=== PATIENT | male | born 1950 | race Caucasian/White ===

== ENCOUNTER 2019-03-05 18:54 | Emergency (ER) | payer OTHER ==
--- NOTE | 2019-03-05 20:03 | EDPHYS ---
Physician Documentation [facility] Name: Harley Gregory Age: 68 yrs Sex: Male : 1950 Arrival Date: 03/05/2019 Time: 18:54 Bed 25 Private MD: ED Physician Cordell Blanco HPI: 03/05 19:15 This 68 yrs old Male presents to ER via Ambulatory with complaints of Urinary la1 Retention. 19:15 The patient presents with a Hassan catheter problem, is not draining. Onset: The la1 symptoms/episode began/occurred 7 hour(s) ago. Modifying factors: The symptoms are alleviated by nothing, the symptoms are aggravated by nothing. Associated signs and symptoms: The patient has no apparent associated signs or symptoms. Severity of symptoms: At their worst the symptoms were moderate. Pt had a hassan put in yesterday from dr garza and today it is not draining. Historical: - Allergies: 19:00 No Known Allergies; ch - PMHx: 19:00 COPD; enlarged prostate; Hypertension; ch - PSHx: 19:00 None; ch - Immunization history:: Adult Immunizations up to date, Flu vaccine is not up to date. - Social history:: Smoking status: Patient uses tobacco products, smokes two packs cigarettes per day. Patient/guardian denies using alcohol, street drugs. - Ebola Screening: : Patient negative for fever greater than or equal to 101.5 degrees Fahrenheit, and additional compatible Ebola Virus Disease symptoms Patient denies exposure to infectious person Patient denies travel to an Ebola-affected area in the 21 days before illness onset No symptoms or risks identified at this time. ROS: 19:28 Constitutional: Negative for fever, chills, and weight loss, Eyes: Negative for injury, la1 pain, redness, and discharge, ENT: Negative for injury, pain, and discharge, Neck: Negative for injury, pain, and swelling, Cardiovascular: Negative for chest pain, palpitations, and edema, Respiratory: Negative for shortness of breath, cough, wheezing, and pleuritic chest pain, Abdomen/GI: Negative for abdominal pain, nausea, vomiting, diarrhea, and constipation, Back: Negative for injury and pain. 19:28 : Positive for urinary retention. Exam: 19:29 Constitutional: This is a well developed, well nourished patient who is awake, alert, la1 and in no acute distress. Head/Face: Normocephalic, atraumatic. Eyes: Pupils equal round and reactive to light, extra-ocular motions intact. Periorbital areas with no swelling, redness, or edema. ENT: Mucous membranes moist. Neck: Trachea midline, no thyromegaly or masses palpated, and no cervical lymphadenopathy. Supple, full range of motion without nuchal rigidity, or vertebral point tenderness. No Meningismus. Chest/axilla: Normal chest wall appearance and motion. Nontender with no deformity. No lesions are appreciated. 19:29 Back: No spinal tenderness. No costovertebral tenderness. Full range of motion. 19:29 Abdomen/GI: Inspection: distension, that is mild, Bowel sounds: normal, Palpation: abdomen is soft and non-tender, in all quadrants. Vital Signs: 19:00 BP 190 / 110; Pulse 110; Resp 24; Temp 98.8(O); Pulse Ox 93% on R/A; Weight 76.2 kg; ch Height 6 ft. 2 in. (187.96 cm); Pain 9/10; 19:37 BP 147 / 77; Pulse 72; Resp 16; sr5 19:00 Body Mass Index 21.57 (76.20 kg, 187.96 cm) ch 19:00 pt states with his COPD he is normally high 80's to low 90's ch Procedures: 19:31 Urinary catheter irrigated by RN, stated 450cc urine output. la1 MDM: 19:06 Patient medically screened. la1 20:00 Data reviewed: vital signs, nurses notes, and as a result, I will discharge patient. la1 Data interpreted: Pulse oximetry: on room air is 93 %. Interpretation: acceptable. Counseling: I had a detailed discussion with the patient and/or guardian regarding: the historical points, exam findings, and any diagnostic results supporting the discharge/admit diagnosis, the need for outpatient follow up, a urologist, to return to the emergency department if symptoms worsen or persist or if there are any questions or concerns that arise at home. Response to treatment: the patient's symptoms have resolved after treatment, and as a result, I will discharge patient. Special discussion: Based on the history and exam findings, there is no indication for further emergent testing or inpatient evaluation. I discussed with the patient/guardian the need to see the urologist for further evaluation of the symptoms. 03/05 19:06 Order name: Misc. Order: irrigate hassan please; Complete Time: 19:17 la1 Administered Medications: No medications were administered Disposition: 03/06 19:40 Co-signature as Attending Physician, Cordell Blanco MD I agree with the assessment and kdr plan of care. Disposition: 03/05/19 20:02 Discharged to Home. Impression: Complication with urinary catheter-occulsion. - Condition is Stable. - Discharge Instructions: Hassan Catheter Care, Adult, Hassan Catheter Care, Adult, [id number]. - Medication Reconciliation Form, Thank You Letter form. - Follow up: Gauri Garza MD; When: As needed. Follow up: Emergency Department; When: As needed. - Problem is new. - Symptoms are resolved. Signatures: Meghan Carrillo, RN RN Cordell Blanco MD MD [facility] Jaycob Dickerson, HAND ALTERATIONS TAILOR-C HAND ALTERATIONS TAILOR-[facility] Rich Morel RN RN tr5 Corrections: (The following items were deleted from the chart) 03/05 20:08 20:02 03/05/2019 20:02 Discharged to Home. Impression: Complication with urinary tr5 catheter-occulsion. Condition is Stable. Forms are Medication Reconciliation Form, Thank You Letter, Antibiotic Education, Prescription Opioid Use. Follow up: Gauri Garza; When: As needed. Follow up: Emergency Department; When: As needed. Problem is new. Symptoms are resolved. la1
--- NOTE | 2019-03-05 20:03 | ER ---
Nurse's Notes [facility] Name: Harley Gregory Age: 68 yrs Sex: Male : 1950 Arrival Date: 03/05/2019 Time: 18:54 Bed 25 Private MD: Diagnosis: Complication with urinary catheter-occulsion Presentation: 03/05 18:57 Presenting complaint: Patient states: Dr. Garza told me to come in. I have prostate ch issues and he put in a catheter ysterday. It is blocked, no urine output since early this afternoon. the pain is very intense. Dr. Garza said you all would flush it and give me stuff to flush it in case it got blocked again. Dr. Garza called me (Meghan Carrillo) and said the same things. Transition of care: patient was not received from another setting of care. Onset of symptoms was March 05, 2019 at 13:00. Risk Assessment: Do you want to hurt yourself or someone else? Patient reports no desire to harm self or others. Initial Sepsis Screen: Does the patient meet any 2 criteria? No. Patient's initial sepsis screen is negative. Does the patient have a suspected source of infection? No. Patient's initial sepsis screen is negative. Care prior to arrival: None. 18:57 Method Of Arrival: Ambulatory 18:57 Acuity: EARLENE 4 ch Triage Assessment: 19:00 General: Appears distressed, uncomfortable, slender, Behavior is agitated, restless. Pain: Complains of pain in low back area, suprapubic area and pelvis Pain currently is 9 out of 10 on a pain scale. Respiratory: No deficits noted. : Last void at 13:00. Historical: - Allergies: 19:00 No Known Allergies; ch - PMHx: 19:00 COPD; enlarged prostate; Hypertension; ch - PSHx: 19:00 None; - Immunization history:: Adult Immunizations up to date, Flu vaccine is not up to date. - Social history:: Smoking status: Patient uses tobacco products, smokes two packs cigarettes per day. Patient/guardian denies using alcohol, street drugs. - Ebola Screening: : Patient negative for fever greater than or equal to 101.5 degrees Fahrenheit, and additional compatible Ebola Virus Disease symptoms Patient denies exposure to infectious person Patient denies travel to an Ebola-affected area in the 21 days before illness onset No symptoms or risks identified at this time. Screenin:01 Abuse screen: Denies threats or abuse. Denies injuries from another. Nutritional ch screening: No deficits noted. Tuberculosis screening: No symptoms or risk factors identified. Fall Risk None identified. Assessment: 19:00 Reassessment: Assumed care of pt, pt standing upright at counter, appears sr5 uncomfortable, equal unlabored resp, skin warm/dry/nc, hassan cather and drainage bag noted. 19:01 Reassessment:. 19:37 Reassessment: Pt's hassan irrigated with syringe, easily flushed, 450mL tea colored sr5 urine drained. Pt reports relief of s/s. Provider notified. Vital Signs: 19:00 BP 190 / 110; Pulse 110; Resp 24; Temp 98.8(O); Pulse Ox 93% on R/A; Weight 76.2 kg; Height 6 ft. 2 in. (187.96 cm); Pain 9/10; 19:37 BP 147 / 77; Pulse 72; Resp 16; sr5 19:00 Body Mass Index 21.57 (76.20 kg, 187.96 cm) 19:00 pt states with his COPD he is normally high 80's to low 90's ED Course: 18:54 Patient arrived in ED. as 18:59 Triage completed. 19:00 Arm band placed on left wrist. Patient placed in an exam room, on a stretcher. 19:01 Patient has correct armband on for positive identification. Bed in low position. Call light in reach. 19:06 Jaycob Dickerson FNP-C [facility]. la1 19:06 Cordell Blanco MD is Attending Physician. la1 19:16 Royal Pratt, RN is Primary Nurse. sr5 20:01 Gauri Garza MD is Referral Physician. la1 Administered Medications: No medications were administered Outcome: 20:02 Discharge ordered by . la1 20:08 Patient left the ED. tr5 20:09 Discharged to home ambulatory, with family. tr5 20:09 Condition: good 20:09 Discharge instructions given to patient, family, Instructed on discharge instructions, follow up and referral plans. bladder irrigation Demonstrated understanding of instructions, follow-up care, bladder irrigation Signatures: Meghan Carrillo, RN RN ch Manasa Torres Lee, BUILDING ARCHITECTURAL DESIGNER-C BUILDING ARCHITECTURAL DESIGNER-Cla1 Royal Pratt RN RN sr5 Rich Morel RN RN tr5
[2019-03-05 20:14] VITALS: TEMP 98.8; O2SAT 93
[2019-03-05 20:16] VITALS: BP 147/77
== END 2019-03-05 20:08 | disposition home or self-care (01) ==
LOC: ER 18:54
DX: T83.098A Other mechanical complication of other urinary catheter, initial encounter (principal); I10 Essential (primary) hypertension; F17.210 Nicotine dependence, cigarettes, uncomplicated
CPT/HCPCS: 99281

== ENCOUNTER 2019-03-08 11:25 | Day surgery (SDC) | payer OTHER ==
[2019-03-08] MEDS ORDERED: Ringers Lactate 1,000 ML IV ONE (11:59)
[2019-03-08] MEDS ORDERED: GENTAMICIN 80 MG/100 ML BAG 80 MG/100 ML BAG IV ONE (11:59)
[2019-03-08 12:01] LABS: Absolute Lymphocytes (CBC) 0.5 K/uL (0.7-4.9); Basophils % 0.7 % (0-1.3); Hematocrit 24.4 % (39.6-49.0); Lymphocytes % 7.5 % (15.3-44.8); MPV 8.8 fL (7.6-11.3); RBC Red Blood Cell Count 2.56 M/uL (4.33-5.43)
[2019-03-08 12:13] LABS: Protime INR 1.11
--- NOTE | 2019-03-08 12:42 | RAD REPORT ---
EXAM DESCRIPTION: Kayla Patino And David (2 Views)03/08/2019 12:19 pm CLINICAL HISTORY: Preop for bladder surgery COMPARISON: January 2019 FINDINGS: Lungs are hyperaerated The lungs appear clear of acute infiltrate. The heart is normal size IMPRESSION: No acute abnormalities displayed
[2019-03-08 13:04] LABS: Potassium 4.9 mmol/L (3.5-5.1)
[2019-03-08] MEDS ORDERED: MIDAZOLAM HCL 2 MG/2 ML INJ ONE (13:12)
[2019-03-08] MEDS ORDERED: FENTANYL CITR 100 MCG/2 ML ONE ×2 (13:12→14:36)
[2019-03-08] MEDS ORDERED: LIDOCAINE 1% MPF 5 ML VIAL ONE (13:12)
[2019-03-08] MEDS ORDERED: propofoL 200 MG/20 ML VIAL IV ONE (13:12)
[2019-03-08] MEDS ORDERED: NA CHLORIDE 0.9% 1,000 ML ONE (14:23)
[2019-03-08] MEDS: MIDAZOLAM HCL 2 MG/2 ML INJ ONE ×2 (16:00→16:05)
[2019-03-08 18:01] VITALS: BP 138/66; TEMP 97.6; O2SAT 99
[2019-03-08] MEDS ORDERED: TRAMADOL HCL 50 MG TAB ONE (18:21)
[2019-03-08 19:16] LABS: Hematocrit 28.9 % (39.6-49.0)
--- NOTE | 2019-03-12 06:48 | EKG ---
Test Date: 2019-03-08 Test Time: 12:00:49 Completions Manager: ANAHI MEASUREMENT RESULTS: Intervals: Rate: 75 NE: 148 QRSD: 138 QT: 408 QTc: 455 [place]: P: 70 NE: 148 QRS: 88 T: 74 INTERPRETIVE STATEMENTS: Normal sinus rhythm with sinus arrhythmia Right bundle branch block Abnormal ECG No previous ECG available for comparison Electronically Signed On 03-12-19 06:44:01 MEDICAL BILLING SERVICE by Clay Mojica
== END 2019-03-08 19:01 | disposition home or self-care (01) ==
LOC: OR 11:25
PROVIDERS: ATTEND Urology
PROC: 0TBB8ZX Excision of Bladder, Via Natural or Artificial Opening Endoscopic, Diagnostic (ICD-10-PCS; principal; 2019-03-08 13:00)
DX: C67.2 Malignant neoplasm of lateral wall of bladder (principal); F17.200 Nicotine dependence, unspecified, uncomplicated; R31.0 Gross hematuria; R97.20 Elevated prostate specific antigen [PSA]; N45.1 Epididymitis
CPT/HCPCS: 93005 ×2; 85025; 80048; 36415; 86900; 86850; 85610; 86901; 88305; 85730; 85018; 85014; 71046; 52235; J2704; J2250 ×2; J3010; P9016 ×2; J7120; J7030; J1580

== ENCOUNTER 2019-03-10 07:12 | Emergency (ER) | payer OTHER ==
[2019-03-10 07:48] LABS: Absolute Lymphocytes (CBC) 0.3 K/uL (0.7-4.9); Basophils % 0.4 % (0-1.3); Hematocrit 30.1 % (39.6-49.0); MPV 8.4 fL (7.6-11.3); RBC Red Blood Cell Count 3.17 M/uL (4.33-5.43)
[2019-03-10 07:55] LABS: Potassium 4.6 mmol/L (3.5-5.1)
--- NOTE | 2019-03-10 08:07 | ER ---
Nurse's Notes [facility] Name: Harley Gregory Age: 68 yrs Sex: Male : 1950 Arrival Date: 03/10/2019 Time: 07:13 Bed 18 Private MD: Gauri Garza A Diagnosis: Retention of urine, unspecified Presentation: 03/10 07:28 Presenting complaint: Patient states: had a tumor removed from bladder on Mar [address] mat Garza, hassan catheter was removed yesterday morning, initially was able to urinate but now has not urinated since yesterday afternoon. Transition of care: patient was not received from another setting of care. Onset of symptoms was March 09, 2019. Risk Assessment: Do you want to hurt yourself or someone else? Patient reports no desire to harm self or others. Initial Sepsis Screen: Does the patient meet any 2 criteria? No. Patient's initial sepsis screen is negative. Does the patient have a suspected source of infection? No. Patient's initial sepsis screen is negative. Care prior to arrival: None. 07:28 Method Of Arrival: Ambulatory iw 07:28 Acuity: EARLENE 3 iw Historical: - Allergies: 07:31 Codeine; iw 07:24 Codeine; sg - PMHx: 07:32 COPD; enlarged prostate; Hypertension; iw 07:24 COPD; enlarged prostate; Hypertension; sg - PSHx: 07:32 tumor removed from bladder; iw 07:24 None; sg - Immunization history:: Adult Immunizations not up to date. - Social history:: Smoking status: Patient uses tobacco products, smokes one pack cigarettes per day. - Ebola Screening: : Patient negative for fever greater than or equal to 101.5 degrees Fahrenheit, and additional compatible Ebola Virus Disease symptoms Patient denies exposure to infectious person Patient denies travel to an Ebola-affected area in the 21 days before illness onset No symptoms or risks identified at this time. Screenin:25 Abuse screen: Denies threats or abuse. Denies injuries from another. Nutritional sg screening: No deficits noted. Tuberculosis screening: No symptoms or risk factors identified. Never had TB. Fall Risk None identified. Assessment: 07:25 General: Appears in no apparent distress. uncomfortable, well groomed, well developed, sg well nourished, Behavior is calm, cooperative, appropriate for age. Pain: Complains of pain in suprapubic area. Neuro: Level of Consciousness is awake, alert, obeys commands, Oriented to person, place, time, Speech is normal, Facial symmetry appears normal. Cardiovascular: Patient's skin is warm and dry. Chest pain is denied. Respiratory: Airway is patent Respiratory effort is even, unlabored, Respiratory pattern is regular, symmetrical. GI: Abdomen is round non-distended. EENT: No signs and/or symptoms were reported regarding the EENT system. Derm: Skin is pink, warm \T\ dry. Musculoskeletal: No signs and/or symptoms reported regarding the musculoskeletal system. 08:00 : Genitalia appear normal bruising noted to bilateral upper thigh, dark purple. sg Vital Signs: 07:31 BP 158 / 84; Pulse 84; Resp 18 S; Temp 98.3; Pulse Ox 97% on R/A; Weight 76.2 kg; iw Height 6 ft. 1 in. (185.42 cm); Pain 9/10; 08:30 BP 142 / 80; Pulse 88; Resp 17; Temp 98.3; Pulse Ox 98% on R/A; sg 07:31 Body Mass Index 22.16 (76.20 kg, 185.42 cm) iw ED Course: 07:13 Patient arrived in ED. as 07:13 Gauri Garza MD is Private Physician. as 07:18 Prashant Cao, NEO is Primary Nurse. sg 07:18 Catrina Thompson FNP-C [facility]. kb 07:18 Cordell Blanco MD is Attending Physician. kb 07:31 Triage completed. iw 07:31 Arm band placed on. iw 07:33 Patient has correct armband on for positive identification. iw 07:33 Bladder scan completed. 679 mL. iw 07:37 Initial lab(s) drawn, by me, sent to lab. Inserted saline lock: 20 gauge in right ms forearm, using aseptic technique. Blood collected. 08:01 Urine collected: Hassan catheter specimen, clear. Hassan cath inserted, using sterile sg technique, 16 Fr., by me, balloon inflated, to gravity drainage, urine specimen collected. returned clear yellow urine. Patient tolerated well. 08:30 No provider procedures requiring assistance completed. IV discontinued, intact, sg bleeding controlled, No redness/swelling at site. Pressure dressing applied. Administered Medications: No medications were administered Output: 08:30 Urine: 1000ml (Hassan); Total: 1000ml. sg Outcome: 08:06 Discharge ordered by . luis manuel 08:30 Discharged to home ambulatory, with family. sg 08:30 Condition: good 08:30 Discharge instructions given to patient, family, Instructed on discharge instructions, follow up and referral plans. safety practices, hassan cath care Demonstrated understanding of instructions, follow-up care, hassan cath care 08:39 Patient left the ED. sg Signatures: Catrina Thompson, STANDARDS ANALYST-C STANDARDS ANALYST-Prashant Yan, RN RN Manasa Robison Irene, RN Martha Westbrook ms
--- NOTE | 2019-03-10 08:08 | EDPHYS ---
Physician Documentation [facility] Name: Harley Gregory Age: 68 yrs Sex: Male : 1950 Arrival Date: 03/10/2019 Time: 07:13 Bed 18 Private MD: Gauri Garza, A ED Physician Cordell Blanco HPI: 03/10 07:26 This 68 yrs old Male presents to ER via Unassigned with complaints of Urinary kb Retention. 07:26 The patient presents with urinary symptoms, unable to void, Last void was yesterday. kb Onset: The symptoms/episode began/occurred yesterday. Modifying factors: The symptoms are alleviated by nothing, the symptoms are aggravated by nothing. Associated signs and symptoms: The patient has no apparent associated signs or symptoms. Severity of symptoms: At their worst the symptoms were moderate, in the emergency department the symptoms are unchanged. The patient has not experienced similar symptoms in the past. The patient has been recently seen by a physician:. 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 Yesterday he had a chemo treatment through the bladder and the hassan was removed. States he urinated after the removal, but then hasn't been able to urinate since yesterday afternoon. . Historical: - Allergies: 07:31 Codeine; iw 07:24 Codeine; sg - PMHx: 07:32 COPD; enlarged prostate; Hypertension; iw 07:24 COPD; enlarged prostate; Hypertension; sg - PSHx: 07:32 tumor removed from bladder; iw 07:24 None; sg - Immunization history:: Adult Immunizations not up to date. - Social history:: Smoking status: Patient uses tobacco products, smokes one pack cigarettes per day. - Ebola Screening: : Patient negative for fever greater than or equal to 101.5 degrees Fahrenheit, and additional compatible Ebola Virus Disease symptoms Patient denies exposure to infectious person Patient denies travel to an Ebola-affected area in the 21 days before illness onset No symptoms or risks identified at this time. ROS: 07:26 Constitutional: Negative for fever, chills, and weight loss, ENT: Negative for injury, kb pain, and discharge, Neck: Negative for injury, pain, and swelling, Cardiovascular: Negative for chest pain, palpitations, and edema, Respiratory: Negative for shortness of breath, cough, wheezing, and pleuritic chest pain, Abdomen/GI: Negative for abdominal pain, nausea, vomiting, diarrhea, and constipation, Back: Negative for injury and pain, MS/Extremity: Negative for injury and deformity, Skin: Negative for injury, rash, and discoloration, Neuro: Negative for headache, weakness, numbness, tingling, and seizure. 07:26 : Positive for unable to urinate. Exam: 07:26 Constitutional: This is a well developed, well nourished patient who is awake, alert, kb and in no acute distress. Head/Face: Normocephalic, atraumatic. ENT: Nares patent. No nasal discharge, no septal abnormalities noted. Tympanic membranes are normal and external auditory canals are clear. Oropharynx with no redness, swelling, or masses, exudates, or evidence of obstruction, uvula midline. Mucous membranes moist. Neck: Trachea midline, no thyromegaly or masses palpated, and no cervical lymphadenopathy. Supple, full range of motion without nuchal rigidity, or vertebral point tenderness. No Meningismus. Chest/axilla: Normal chest wall appearance and motion. Nontender with no deformity. No lesions are appreciated. Cardiovascular: Regular rate and rhythm with a normal S1 and S2. No gallops, murmurs, or rubs. Normal PMI, no JVD. No pulse deficits. Respiratory: Lungs have equal breath sounds bilaterally, clear to auscultation and percussion. No rales, rhonchi or wheezes noted. No increased work of breathing, no retractions or nasal flaring. Back: No spinal tenderness. No costovertebral tenderness. Full range of motion. Skin: Warm, dry with normal turgor. Normal color with no rashes, no lesions, and no evidence of cellulitis. MS/ Extremity: Pulses equal, no cyanosis. Neurovascular intact. Full, normal range of motion. Neuro: Awake and alert, GCS 15, oriented to person, place, time, and situation. Cranial nerves II-XII grossly intact. Motor strength 5/5 in all extremities. Sensory grossly intact. Cerebellar exam normal. Normal gait. 07:26 Abdomen/GI: Inspection: distension, that is mild, in the suprapubic area, Bowel sounds: normal, in all quadrants, Palpation: soft, in all quadrants, mild abdominal tenderness, in the suprapubic area. Vital Signs: 07:31 BP 158 / 84; Pulse 84; Resp 18 S; Temp 98.3; Pulse Ox 97% on R/A; Weight 76.2 kg; iw Height 6 ft. 1 in. (185.42 cm); Pain 9/10; 08:30 BP 142 / 80; Pulse 88; Resp 17; Temp 98.3; Pulse Ox 98% on R/A; sg 07:31 Body Mass Index 22.16 (76.20 kg, 185.42 cm) iw MDM: 07:18 Patient medically screened. kb 07:26 Data reviewed: vital signs, nurses notes. Data interpreted: Pulse oximetry: on room air kb is 97 %. Interpretation: normal. 08:02 Counseling: I had a detailed discussion with the patient and/or guardian regarding: the kb historical points, exam findings, and any diagnostic results supporting the discharge/admit diagnosis, lab results, the need for outpatient follow up, a urologist, to return to the emergency department if symptoms worsen or persist or if there are any questions or concerns that arise at home. ED course: Pt kidney disease is known. Reports Dr Garza told him to follow up with a kidney specialist. Leg bag will by placed on hassan and pt will follow up with Dr Garza. . 03/10 07:23 Order name: Urine Microscopic Only kb 03/10 07:23 Order name: CBC with Diff kb 03/10 07:23 Order name: Urine Dipstick-Ancillary (obtain specimen); Complete Time: 08:00 kb 03/10 07:23 Order name: Bladder Scanner; Complete Time: 07:32 kb 03/10 07:23 Order name: Basic Metabolic Panel; Complete Time: 08:00 kb 03/10 08:04 Order name: Urine Dipstick--Ancillary (enter results); Complete Time: 08:32 iw 03/10 07:23 Order name: IV Start; Complete Time: 07:37 kb 03/10 07:23 Order name: Hassan; Complete Time: 08:00 kb 03/10 08:07 Order name: Hassan Leg Bag; Complete Time: 08:10 kb Administered Medications: No medications were administered Disposition: 03/11 07:29 Co-signature as Attending Physician, Cordell Blanco MD I agree with the assessment and kdr plan of care. Disposition: 03/10/19 08:06 Discharged to Home. Impression: Retention of urine, unspecified. - Condition is Stable. - Discharge Instructions: Acute Urinary Retention, Male, [id number], Hassan Catheter Care, Adult, [id number]. - Medication Reconciliation Form, Thank You Letter, Antibiotic Education, Prescription Opioid Use form. - Follow up: Emergency Department; When: As needed; Reason: Worsening of condition. Follow up: Private Physician; When: 2 - 3 days; Reason: Recheck today's complaints, Continuance of care, Re-evaluation by your physician. Signatures: Dispatcher [employer] EDMS Catrina Thompson, SENIOR SYSTEMS DEVELOPER-C SENIOR SYSTEMS DEVELOPER-Ckb Prashant Cao RN RN sg Cordell Blanco MD MD kdr Vania Pimentel RN RN iw Corrections: (The following items were deleted from the chart) 03/10 08:39 08:06 03/10/2019 08:06 Discharged to Home. Impression: Retention of urine, unspecified. sg Condition is Stable. Discharge Instructions: Acute Urinary Retention, Male, [id number], Hassan Catheter Care, Adult, [id number]. Forms are Medication Reconciliation Form, Thank You Letter, Antibiotic Education, Prescription Opioid Use. Follow up: Emergency Department; When: As needed; Reason: Worsening of condition. Follow up: Private Physician; When: 2 - 3 days; Reason: Recheck today's complaints, Continuance of care, Re-evaluation by your physician. kb
[2019-03-10 08:28] LABS: Urine Blood 3+ (NEG); Urine Glucose NEGATIVE (NEG); Urine Protein 1+ (NEG)
[2019-03-10 08:44] LABS: Urine Bacteria 20-50 /HPF (NONE SEEN); Urine Culture Reflex Order REFLEXED; Urine RBC >50 /HPF (NONE SEEN)
[2019-03-10 08:49] VITALS: BP 158/84; TEMP 98.3; O2SAT 97
[2019-03-10 09:03] LABS: Blood Morphology Comment NOT SEEN (NOT SEEN); Platelet Estimate ADEQ
== END 2019-03-10 08:39 | disposition home or self-care (01) ==
LOC: ER 07:12
DX: R33.9 Retention of urine, unspecified (principal); I10 Essential (primary) hypertension; J44.9 Chronic obstructive pulmonary disease, unspecified; F17.210 Nicotine dependence, cigarettes, uncomplicated; Z88.5 Allergy status to narcotic agent
CPT/HCPCS: 36415; 51702; 80048; 81003; 81015; 85025; 87086; 87088; 93005; 99284

== ENCOUNTER 2020-03-17 08:43 | Day surgery (SDC) | payer OTHER ==
--- OUTSIDE RECORDS SUMMARY | 2020-03-17 08:46 | XMS REPORT | Continuity of Care Document ---
:1950 Author Organization [facility] t Address [address] [place] [address] Care Team Providers Name Role Phone Zak GUILLORY Attending Clinician Problems This patient has no known problems. Allergies, Adverse Reactions, Alerts Allergy Allergy Status Severity Reaction(s) Onset Inactive Treating Comm ents Source Name Type Date Date Clinician Predniso Adverse Active swelling, [facility] Medications Ordered Filled Start Stop Current Ordering Indication Dosage Frequency Signature Comments Components Source Medication Medication Date Date Medication? Clinician (SIG) Name Name Tamsulosin Tamsulosin 2020- No Sanam [address] [facility] HCl HCl 10-21 [facility] Cefdinir Cefdinir 2019- No [facility] 10-21 [place] [facility] Flomax Flomax Yes [facility] [place] [facility] Albuterol Albuterol Yes Sanam [address] [facility] Sulfate Sulfate [facility] Ferrous Ferrous Yes Sanam [address] [facility] Sulfate Sulfate [place] [facility] BusPIRone BusPIRone Yes Sanam [address] [facility] HCl HCl [place] [facility] Ibuprofen Ibuprofen Yes Sanam [address] [facility] Toan with food [facility] - or milk as [facility] Mucinex DM Mucinex DM Yes Sanam 1 -[address] [place] tablet as [facility] Procedures This patient has no known procedures. Encounters Start End Encounter Admission Attending Care Care Encounter Source Date/Time Date/Time Type Type Clinicians Facility Department ID 2020-03-15 2020-03-15 Outpatient [facility] [id number] [facility] 2020-03-13 2020-03-13 Out[facility] [id number] [facility] 2020-03-12 2020-03-12 Out[facility] [id number] [facility] 2020-03-07 2020-03-07 Out[facility] [id number] [facility] 2020-02-11 2020-02-11 Out[facility] [id number] [facility] 2019-12-09 2019-12-09 Out[facility] [id number] [facility] 2019-12-07 2019-12-07 Out[facility] [id number] [facility] 2019-12-01 2019-12-01 Out[facility] [id number] 2019-12-01 2019-12-01 [facility] [id number] [facility] 2019-11-26 2019-11-26 [facility] [id number] [facility] 2019-11-18 2019-11-18 [facility] [id number] [facility] 11:00:00 11:00:00 [facility] 2019-11-11 2019-11-11 [facility] [id number] [facility] 13:08:00 13:08:00 [facility] 2019-10-27 2019-10-27 [facility] [id number] [address] 10:30:00 10:30:00 t [facility] Clin[facility] 2019-10-23 2019-10-23 [facility] [id number] [facility] 14:29:00 14:29:00 t [facility] Outpat[facility] Clinics 2019-10-22 2019-10-22 [facility] [id number] 15:15:00 15:15:00 t [facility] Out[facility] ent Clinics 2019-09-16 2019-09-16 Office [facility] [id number] 14:24:14 16:28:18 Visit , [facility] [id number] [facility] [id number] Results This patient has no known results.
--- OUTSIDE RECORDS SUMMARY | 2020-03-17 08:46 | XMS REPORT ---
:1950 Author Organization [facility] Address [address] [facility] [address] [place] [address] Care Team Providers Name Role Phone Toan Unavailable [phone] PROBLEMS Type Condition ICD9-CM [id number] Onset Condition SNOMED Code Notes Code Code Dates Status Problem Diaz catheter Z97.[address] Problem Abnormal renal R94.4 Active 751790281 function test Problem At risk for Z91.81 Active 417597133 falls Problem Chronic J44.9 Active 34689156 obstructive pulmonary disease, unspecified COPD type Problem Tobacco use Z72.0 Active 940815473 Problem Generalized R53.1 Active 80894690 weakness Problem Skin lesions L98.9 Active 41098809 Multiple; including moles at face/back. Problem Allergic T78.40XA Active 881418934 reaction, initial encounter Problem Peripheral R60.9 Active 420874389 edema Problem History of Z85.51 Active 166232530 bladder cancer Problem Itching L29.9 Active 426407465 Problem Urinary R33.9 Active 588974218 retention Problem Hypoxia R09.02 Active 596716027 Problem Bladder cancer C67.9 Active 177910609 ALLERGIES Allergen (clinical Drug/Non Drug Reaction Allergy Type Onset Date S tatus drug ingredient) Allergy documented on EMR PrednisoLONE swelling, Drug Allergy Active itching, breakout ENCOUNTERS from 1950 to 2020-02-11 Encounter Location Date Provider Diagnosis [facility] [address] Feb, Sanam Joya [facility] [address] IMMUNIZATIONS Vaccine Route Administration Date Status Rocephin (Ceftriaxone) IM Intramuscular Dec 07, 2019 Administ ered Solumedrol 125mg/2ml IM Intramuscular Oct 21, 2019 Administer ed SOCIAL HISTORY Tobacco Use: Social History Observation Description Date Details (start date - stop date) Current Smoker Sex Assigned At : Social History Observation Description Sex Assigned At Unknown Tobacco Use/Smoking Question Answer Notes Are you a current smoker How often do you smoke cigarettes? every day REASON FOR REFERRAL No Information VITAL SIGNS No information MEDICATIONS Medication SIG (Take, Route, Notes Start Date End Date Status Frequency, Duration) Cefdinir 300 MG as directed Orally BID Feb,Feb Active for 7 days BusPIRone HCl 10 MG 1 tablet Orally three Active times a day Mucinex DM 30-600 MG 1 -2 tablet as needed Active Orally every 12 hrs Ferrous Sulfate 324 MG 1 tablet Orally Once a Active day Flomax 0.4 MG 1 capsule Orally Once a Active day for 30 day(s) Tamsulosin HCl 0.4 MG 1 capsule Orally Once a Active day for 90 days Cefdinir 300 MG as directed Orally BID Active for 7 days Ibuprofen 600 MG 1 tablet with food or Active milk as needed Orally Three times a day Albuterol Sulfate (2.5 3 ml as needed Active MG/3ML) 0.083% Inhalation 2 times daily as directed PROCEDURES No Information RESULTS No Results REASON FOR VISIT No Information MEDICAL (GENERAL) HISTORY Type Description Date Medical History Allergic rhinitis Medical History Cancer Medical History Memory problem Medical History Swelling Medical History Anxiety Medical History COPD (chronic obstructive pulmonary dise ase) Medical History Kidney disease Medical History Sinus problem Medical History prostate problems Surgical History bladder cancer 2019 [place] No Information Health Concerns No Information MEDICAL EQUIPMENT No Information MENTAL STATUS No Information FUNCTIONAL STATUS No Information ASSESSMENTS No Information PLAN OF TREATMENT Medication Medication Name Sig Start Date Stop Date Cefdinir 300 MG as directed Orally BID for 7 days Feb, Feb, Insurance Providers Payer Name Payer Payer Insured Name Patient Coverage Covera ge End Address Phone Relationship to Start Date Wes e Insured [employer] [address] [address] [phone] Andrea Gregory [facility] [address] [phone]
--- OUTSIDE RECORDS SUMMARY | 2020-03-17 08:46 | XMS REPORT ---
:[address] [facility] Address [address] [facility] [place], [place] [place] [address] Care Team Providers Name Role Phone Eddie Unavailable [phone] PROBLEMS Type Condition ICD9-CM [id number] Onset Condition SNOMED Code Notes Code Code Dates Status Problem Diaz catheter Z97.[address] Problem Abnormal renal R94.4 Active 290944190 function test Problem At risk for Z91.81 Active 847299706 falls Problem Chronic J44.9 Active 83816293 obstructive pulmonary disease, unspecified COPD type Problem Tobacco use Z72.0 Active 785112920 Problem Generalized R53.1 Active 26683549 weakness Problem Skin lesions L98.9 Active 10953381 Multiple; including moles at face/back. Problem Allergic T78.40XA Active 216620947 reaction, initial encounter Problem Peripheral R60.9 Active 177072070 edema Problem History of Z85.51 Active 600852516 bladder cancer Problem Itching L29.9 Active 017027204 Problem Urinary R33.9 Active 092559434 retention Problem Hypoxia R09.02 Active 189525829 Problem Bladder cancer C67.9 Active 893340154 ALLERGIES Allergen (clinical Drug/Non Drug Reaction Allergy Type Onset Date S tatus drug ingredient) Allergy documented on EMR PrednisoLONE swelling, Drug Allergy Active itching, breakout ENCOUNTERS from 1950 to 2020-03-09 Encounter Location Date Provider Diagnosis [facility] [address] [facility] [address] Feb, Colin Morgan [facility] [address] IMMUNIZATIONS Vaccine Route Administration Date Status Rocephin [...] Start Date End Date Status Frequency, Duration) Tamsulosin HCl 0.4 MG 1 capsule Orally Once a Active day for 90 days Albuterol Sulfate (2.5 3 ml as needed Inhalation Active MG/3ML) 0.083% 2 times daily as directed Mucinex DM 30-600 MG 1 -2 tablet as needed Active Orally every 12 hrs BusPIRone HCl 10 MG 1 tablet Orally three Active times a day Ibuprofen 600 MG 1 tablet with food or milk Active as needed Orally Three times a day Cefdinir 300 MG as directed Orally BID for Active 7 days Ferrous Sulfate 324 MG 1 tablet Orally Once a day Active Flomax 0.4 MG 1 capsule Orally Once a Active day for 30 day(s) PROCEDURES No Information RESULTS No Results REASON FOR VISIT prev med did not work MEDICAL (GENERAL) HISTORY Type Description Date Medical [...] Information ASSESSMENTS No Information PLAN OF TREATMENT Next Appt Details Provider Name:Colin Morgan, 03:30:00 PM, [address] [place] [address], [phone], Provider Name:Eduard Syed, 2020-03-30 01:30:00 PM, [facility] CATHERINE Champion, [address], [address], Provider Name:Sanam Joya, 11:00:00 AM, [address] [place] [address], [phone], Insurance Providers Payer Name Payer Payer Insured Name Patient Coverage Covera ge End Address Phone Relationship to Start Date Wes e Insured [employer] [address] [address] [phone] Andrea Gregory [facility] [address] [phone]
--- OUTSIDE RECORDS SUMMARY | 2020-03-17 08:46 | XMS REPORT | Summary of Care ---
:1950 Author Organization [facility] Address [address] [place] [address] Care Team Providers Name Role Phone [place] Primary Care Provider Reason for Referral Radiology Services (ADRIAN) Status Reason Specialty Diagnoses / Procedures Referred By Helder camacho To Contact Contact Closed Diagnostic Diagnoses Elevated serum creatinine Zak, Radiology Procedures US RETROPERITONEAL LIMITED MD Paulie [address] [place] [address] Reason for Visit Reason Comments New Patient kidney (Routine) Status Reason Specialty Diagnoses / Referred By Referred To Procedures Contact Contact New Request Nephrology Diagnoses Kidney failure Creatinine elevation [place], Procedures CONSULT NEPHROLOGY C MD Paulie [address] [place] [phone] Phone: Fax: Encounter Details Date Type Department Care Team Description 09/16/2019 Office Visit [facility] Zak, Elevated serum creatinine (Primary Dx); Nephrology- MD Paulie Hyperparathyroidism due to renal insuffi ciency; [address] Anemia, unspecified type [place] [address] [address] [phone] [place], [place] [phone] (Fax) [phone] Allergies No Known Allergiesdocumented as of this encounter (statuses as of 12/22/2019) Medications Medication Sig Dispensed Refills Start Date End Date Status aspirin 81 mg chewable Take 81 mg by 0 Active tablet mouth daily. diphenhydrAMINE 25 mg Take 25 mg by 0 Active tablet mouth 2 (two) times daily. guaifenesin/DM/pseudoephe Take 10 mL by 0 Active drine (TUSSIN CF ORAL) mouth 2 (two) times daily. documented as of this encounter (statuses as of 12/22/2019) Active Problems Problem Noted Date Elevated serum creatinine 09/16/2019 Hyperparathyroidism due to renal insufficiency 020 Anemia, unspecified type 09/16/2019 Hyperkalemia 09/16/2019 documented as of this encounter (statuses as of 12/22/2019) Social History Tobacco Use Types Packs/Day Years Used Date Current Every Day Smoker 1 40 Smokeless Tobacco: Never Used Sex Assigned at Date Recorded Not on file COVID-19 Exposure Response Date Recorded In the last month, have you been in contact with No / Unsure 09/24/2019 10:22 AM CDT someone who was confirmed or suspected to have Coronavirus / COVID-19? documented as of this encounter Last Filed Vital Signs Vital Sign Reading Time Taken Comments Blood Pressure 138/77 09/16/2019 3:07 PM CDT Pulse 75 09/16/2019 3:07 PM CDT Temperature 36.6 C (97.9 F) 09/16/2019 3:02 PM CDT Respiratory Rate 16 09/16/2019 3:02 PM CDT Oxygen Saturation - - Inhaled Oxygen Concentration - - Weight 68.9 kg (151 lb 14.4 oz) 09/16/2019 3:02 PM CDT Height 185.4 cm (6' 1") 09/16/2019 3:02 PM CDT Body Mass Index 20.04 09/16/2019 3:02 PM CDT documented in this encounter Progress Notes Paulie Crespo MD - 09/16/2019 3:30 PM CDT DATE OF SERVICE: 09/16/2019 CHIEF COMPLAINT: ELEVATED SERUM CREATININE, HISTORY OF PRESENT ILLNESS: Harley Gregory is a 69 year old male who has a significant past medical history of COPD and Bladder tumors. Patient states that a urologist removed slow growing bladder tumors from the bladder around the first of the year. Repeat cystoscopy three months later revealed no new tumor growth. Patient was noted to have an elevated serum creatinine and was referred for evaluation. Patient denies nausea, vomiting, decreased appetite, reversal of sleep patterns, myoclonus, decreased mental concentration, pruritus, and/or other uremic symptomatology. Patient denies dysuria, hematuria, foul-smelling urine, hesitancy, frequency, and/or nocturia multiple times per night. PAST MEDICAL HISTORY: COPD BLADDER TUMORS PAST SURGICAL HISTORY: Past Surgical History: Procedure Laterality Date CYSTOSCOPY TONSILLECTOMY FAMILY HISTORY: Family History Problem Relation Age of Onset Diabetes Mother CHF (congestive heart failure) Mother Pulmonary Father TB (tuberculosis) Father SOCIAL HISTORY: Social History Socioeconomic History Marital status: Spouse name: Not on file Number of children: Not on file Years of education: Not on file Highest education level: Not on file Occupational History Not on file Social Needs Financial resource strain: Not on file Food insecurity Worry: Not on file Inability: Not on file Transportation needs Medical: Not on file Non-medical: Not on file Tobacco Use Smoking status: Current Every Day Smoker Packs/day: 1.00 Years: 40.00 Pack years: 40.00 Smokeless tobacco: Never Used Substance and Sexual Activity Alcohol use: Not on file Drug use: Not on file Sexual activity: Not on file Lifestyle Physical activity Days per week: Not on file Minutes per session: Not on file Stress: Not on file Relationships Social connections Talks on phone: Not on file Gets together: Not on file Attends roman catholic service: Not on file Active member of club or organization: Not on file Attends meetings of clubs or organizations: Not on file Relationship status: Not on file Intimate partner violence Fear of current or ex partner: Not on file Emotionally abused: Not on file Physically abused: Not on file Forced sexual activity: Not on file Other Topics Concern Not on file Social History Narrative Not on file ALLERGIES: No Known Allergies MEDICATIONS: Current Outpatient Medications on File Prior to Visit Medication Sig Dispense Refill aspirin 81 mg chewable tablet Take 81 mg by mouth daily. diphenhydrAMINE 25 mg tablet Take 25 mg by mouth 2 (two) times daily. guaifenesin/DM/pseudoephedrine (TUSSIN CF ORAL) Take 10 mL by mouth 2 (two) times daily. No current facility-administered medications on file prior to visit. REVIEW OF SYSTEMS: CONSTITUTIONAL: Patient feels relatively weak and tired since before [place] 1. with weakness, denies fevers, chills, night sweats, weight loss of 50 lbs in one year. SKIN: Patient denies pruritus or skin changes HEENT: Patient denies headaches, blurred vision, double vision, eye pain, discharges, photophobia, uses readers. Patient denied hearing loss, earache, tinnitus, vertigo. Patient attests to rhinorrhea, nasal stuffiness that is seasonal, denies epistaxis. Patient denied bleeding gums, sore tongue, sore t hroat, and/or hoarseness. NECK: Patient denies neck pain, stiffness, attests to a left-sided lump noticed a couple of years. PULMONARY: Patient attest to shortness of breath on exertion, attests to cough with clear phlegm production, denies hemoptysis, wheezing, denies orthopnea, attests to paroxysmal nocturnal dyspnea with cough. CARDIOVASCULAR: Patient denies chest pain and/or palpitations GASTROINTESTINAL: Patient attests to decreased appetite, nausea in AM, denies vomiting, denies abdominal pain, constipation, diarrhea, hematemesis, melena, and/or hematochezia. No colonoscopy. GENITOURINARY: Patient denies flank pain, dysuria, foul-smelling urine, hematuria, foamy urine, hesitancy, decreased urinary stream, polyuria, and/or nocturia ("lots of times") MUSCULOSKELETAL: Patient denies joint pain, stiffness, swelling, limitation of motion, tenderness, and/or redness. PERIPHERAL VASCULAR: Patient denies pain/discomfort upon walking, coldness, numbness, redness, swelling, and/or tenderness. HEMATOLOGIC: Patient denies easy bruising, gingival bleeding, excessive bleeding after procedures. NEUROLOGICAL: Patient denies syncope, attests to dizziness/lightheadedness intermittently with changing positions, denies vertigo, numbness and/or paresthesias, tremors and/or other involuntary movements. ENDOCRINOLOGIC: Patient denies skin changes, polyuria, polydipsia, polyphagia, heat or cold intolerance, and/or excessive sweating. PSYCHIATRIC: Patient attests nervousness/anxiety, excessive fatigue, changes in sleep habits (awake every 45 minutes), good mood, memory diminished PHYSICAL EXAMINATION: Vitals: 09/16/19 1502 09/16/19 1505 09/16/19 1506 09/16/19 1507 BP: (!) 140/81 (!) 140/80 (!) 149/80 138/77 BP Location: Right arm Right arm Left arm Left arm Patient Position: Sitting Standing Sitting Standing BP CUFF SIZE: Adult Medium Adult Medium Adult Medium Adult Medium Pulse: 70 74 69 75 Resp: 16 Temp: 36.6 C (97.9 F) TempSrc: Oral Weight: 151 lb 14.4 oz (68.9 kg) Height: 6' 1" (1.854 m) GENERAL: Patient looks well-developed, well-nourished, in no apparent distress. Patient is awake, alert, oriented, and cooperative. SKIN: No significant skin lesions, and/or rashes HEENT: Normocephalic, atraumatic, PERRLA, EOMI, pink conjunctivae, moist oral mucosa without oropharyngeal lesion. No naso-oropharyngeal lesions. NECK: Supple, full range of motion, without lymphadenopathy, thyromegaly, masses, and/or bruits CHEST: Clear to auscultation and percussion. HEART: Normal S1, S2, without murmurs, rubs, and/or gallops. ABDOMEN: Normoactive bowel sounds in all quadrants, without tenderness, hepatosplenomegaly, masses, and/or bruits EXTREMITIES: No clubbing, cyanosis, and/or edema. No joint swelling and/or tenderness. Pulses were 2+/4+ in all areas without femoral bruits. NEURO: CN II-XII grossly intact, non-focal exam without asterixis LABORATORY DATA: No visits with results within 1 Day(s) from this visit. Latest known visit with results is: Manufacturing Specialist Visit on 09/08/2019 Component Date Value NA 09/08/2019 138 K 09/08/2019 4.9 CL 09/08/2019 103 CO2 TOTAL 09/08/2019 26 AGAP 09/08/2019 9 BUN 09/08/2019 43* GLUCOSE 09/08/2019 137* CREATININE 09/08/2019 2.82* CALCIUM 09/08/2019 8.8 eGFR Calculation (Non-Af* 09/08/2019 22.3 eGFR Calculation (Mary* 09/08/2019 27.1 MAGNESIUM 09/08/2019 2.1 CREAT U 09/08/2019 52.2 MICROALB U 09/08/2019 54* MICROAL/CR 09/08/2019 103* T. PROT U 09/08/2019 30 CREAT U 09/08/2019 51.0 Protein/Creatinine Ratio* 09/08/2019 0.6 PHOSPHORUS 09/08/2019 4.6 WBC 09/08/2019 4.19* RBC 09/08/2019 3.07* HGB 09/08/2019 10.0* HCT 09/08/2019 30.9* MCH 09/08/2019 32.6 MCV 09/08/2019 100.7* MCHC 09/08/2019 32.4 PLT 09/08/2019 130* MPV 09/08/2019 9.6* RDW-CV 09/08/2019 13.3 RDW-SD 09/08/2019 48.9 NRBC x10^3 09/08/2019 <0.01 NRBC/100 WBC 09/08/2019 0.0 CALCIUM 09/08/2019 8.8 PTH-INTACT 09/08/2019 209.4* PTH-CA Interpretation 09/08/2019 URIC ACID 09/08/2019 3.8 APPEARANCE 09/08/2019 Clear COLOR 09/08/2019 Yellow PH 09/08/2019 6.0 SP GRAVITY 09/08/2019 1.010 GLU U QUAL 09/08/2019 Normal BLOOD 09/08/2019 3+* KETONES 09/08/2019 Negative PROTEIN 09/08/2019 Negative UROBILIN 09/08/2019 Normal BILIRUBIN 09/08/2019 Negative NITRITE 09/08/2019 Negative LEUK ALEXANDRU 09/08/2019 Negative RBC/HPF 09/08/2019 91* WBC/HPF 09/08/2019 2 BACTERIA 09/08/2019 Few* SQ EPITH 09/08/2019 <1 Repeat Laboratory Data in follow-up of elevated serum creatinine and hyperkalemia. 09/22/2019 08:56 NA 140 K 5.1 (H) CL 102 CO2 TOTAL 29 AGAP 9 BUN 50 (H) GLUCOSE 87 CREATININE 3.00 (H) eGFR CALCULATION (non ) 20.8 eGFR CALCULATION () 25.2 CALCIUM 8.9 RENAL ULTRASOUND EXAM: US RETROPERITONEAL LIMITED HISTORY: 69 years-old Male with elevated serum creatinine, right upper quadrant fullness (patient very thin and could be normal kidney) . TECHNIQUE: Ultrasound of kidneys was performed with grayscale and selected color Doppler imaging. Acetylene Gas Compressor images were obtained for the record. COMPARISON: None FINDINGS: The kidneys are normal in size, contour, and echotexture. The right kidney measures 11.2 x 4.2 x 4.8 cm (119 mL). The left kidney measures 10.2 x 5.0 x 4.6 cm (125 mL). No hydronephrosis or stone. BLADDER: Not evaluated in this limited study. IMPRESSION Unremarkable renal ultrasound. Preliminary Report Dictated by Resident: Dennise Blankenship I, Jessica Lopez MD., have reviewed this study and agree with the above Report. ASSESSMENT/PLAN: ELEVATED SERUM CREATININE Comment: Patient's serum creatinine was 2.82-3.0 mg/dL mg/dL, at the time of this clinic visit, which extrapolates to an estimated GFR by the MDRD equation of 20 mL/min normalized to a body surface area. Underlying kidney disease is not clear at this time except for hypertension. Patient does have hematuria, however, patient has only mild proteinuria inconsistent with a glomerulonephritis except forIgA Nephropathy or an entity like thin basement membrane disease. His hematuria could be secondary to previous bladder issues as mentioned in PMHx. Renal ultrasound is unremarkable at this time. Plan: REPEAT URINALYSIS AND ASSESS HEMATURIA.. CONSIDERATION FOR RENAL BIOPSY IF ETIOLOGY OF RENAL DYSFUNCTION IS UNCLEAR.. HEMATURIA Comment: See above discussion Plan. See above. SECONDARY HYPERPARATHYROIDISM Comment: This likely represents chronic elevation in serum creatinine and phosphorus abnormalities Plan: NO INTERVENTION IS NECESSARY AT THIS TIME ANEMIA IN CHRONIC KIDNEY DISEASE Comment: This is secondary to elevated serum creatinine and reduction in erythropoietin Plan: NO INTERVENTION IS NECESSARY AT THIS TIME FOLLOW-UP: 2-3 MONTHS Paulie Crespo MD vitreo retinal surgeon Director, Division of Nephrology & Hypertension 4.[address] Paulie [address] [place] O [phone] F [phone] M [phone] P [phone] E [email or web address] documented in this encounter Plan of Treatment Health Maintenance Due Date Last Done Comments HEPATITIS C (HCV) SCREEN 1950 Depression Screening 1961 DTaP,Tdap,and Td Vaccines (1 - Tdap) 1968 COLON CANCER SCREENING ANNUAL FIT/FOBT 1999 COLON CANCER SCREENING FIT DNA EVERY 3 YEARS 1999 COLON CANCER SCREENING SIGMOIDOSCOPY EVERY 5 YEARS 1999 COLONOSCOPY 1999 Colorectal Cancer Screening 1999 Zoster Recombinant Vaccine (SHINGRIX) (1 of 2) 1999 LUNG CANCER SCREEN: Recommended for age 55-80 with 30 + 03/29/19 05 pack year history Medicare Wellness Visit 2014 PNEUMOCOCCAL VACCINES 65+ (1 of 1 - PPSV23) 2014 INFLUENZA VACCINE (#1) 2019 documented as of this encounter Procedures Procedure Name Priority Date/Time Associated Diagnosis Comme nts VITAMIN D, 25-OH Routine 09/16/2019 4:42 Hyperparathyroidism due to Results for this PM CDT renal insufficiency procedur e are in the results section. COMP. METABOLIC Routine 09/16/2019 4:42 Elevated serum creatinine Results for this PANEL (86210) PM CDT Hyperparathyroidism due to procedure are in renal insufficiency the resu lts section. TOTAL IRON Routine 09/16/2019 4:42 Anemia, unspecified type Results for this BINDING CAPACITY PM CDT procedure a re in the results section. IRON Routine 09/16/2019 4:42 Anemia, unspecified type Results for this PM CDT procedure are i n the results section. FERRITIN SERUM Routine 09/16/2019 4:42 Anemia, unspecified ty pe Results for this PM CDT procedure are i n the results section. documented in this encounter Results US RETROPERITONEAL LIMITED (09/24/2019 10:40 AM CDT) Specimen Impressions Performed At PACS/VR/DOSE Unremarkable renal ultrasound. Preliminary Report Dictated by Resident: Dennise Blankenship I, Jessica Lopez MD., have reviewed this study and agree with the above report. Narrative Performed At EXAM: US RETROPERITONEAL LIMITED PACS/VR/DOSE HISTORY: 69 years-old Male with elevated serum creatinine, right upper quadrant fullness (patient very thin and could be normal kidney) . TECHNIQUE: Ultrasound of kidneys was performed with gr ayscale and selected color Doppler imaging. Acetylene Gas Compressor images were obta ined for the record. COMPARISON: None FINDINGS: The kidneys are normal in size, contour, and echotextu re. The right kidney measures 11.2 x 4.2 x 4.8 cm (119 mL). The left kidney measures 10.2 x 5.0 x 4.6 cm (125 mL). No hydronephrosis or stone. BLADDER: Not evaluated in this limited s tudy. Procedure Note Ut, Radiant Results Inft User - 2019 11:06 AM CDT EXAM: US RETROPERITONEAL LIMITED HISTORY: 69 years-old Male with elevated serum creatinine, right upper quadrant fullness (patient very thin and could be normal kidney) . TECHNIQUE: Ultrasound of kidneys was per formed with grayscale and selected color Doppler imaging. Acetylene Gas Compressor im ages were obtained for the record. COMPARISON: None FINDINGS: The kidneys are normal in size, contour, and echotexture. The right kidney measures 11.2 x 4.2 x 4.8 cm (119 mL). T he left kidney measures 10.2 x 5.0 x 4.6 cm (125 mL). No hydronephrosis or stone. BLADDER: Not evaluated in this limited s tudy. IMPRESSION Unremarkable renal ultrasound. Preliminary Report Dictated by Resident: Dennise Blankenship I, Jessica Lopez MD., have reviewed this study and agree with the above report. Performing Organization Address City/[facility] Phone Number PACS/VR/DOSE FERRITIN SERUM (09/16/2019 4:42 PM CDT) Pathologist Sig [facility] FERRITIN 152.0 18.0 - 464.0 ng/mL [facility] ES Specimen Blood Narrative Performed At Biotin has been reported to cause a negative bias, int erpret [facility] results relative to patient's use of biotin. Performing Organization Address City/[facility] Cent[facility] Phone Number [facility] CLIA: [id number] [place] [address] [phone] 301 [facility] TOTAL IRON BINDING CAPACITY (09/16/2019 4:42 PM CDT) Pathologist Sig [facility] TIBC 308 250 - 410 ug/dL [facility] % FE SAT 22 20 - 50 % [facility] Specimen Blood Performing Organization Address [facility] [place]/[facility] Phone Number [facility] CLIA: [id number] [place], [place] [address] 301 [facility] IRON (09/16/2019 4:42 PM CDT) Pathologist Sig nature IRON 67 50 - 160 ug/dL [facility] Specimen Blood Performing Organization Address City/State/Zipcode Phone Number [facility] CLIA: [id number] [place] [address] [place] [address] COMP. METABOLIC PANEL (53289) (09/16/2019 4:42 PM CDT) NA 140 135 - 145 [facility] mmol/L SERVICES K 6.2 (HH) 3.5 - 5.0 [facility] mmol/L SERVICES CL 103 98 - 108 mmol/L [facility] CO2 TOTAL 30 23 - 31 mmol/L [facility] AGAP 7 2 - 16 [facility] BUN 34 (H) 7 - 23 mg/dL [facility] GLUCOSE 99 70 - 110 mg/dL [facility] CREATININE 2.86 (H) 0.60 - 1.25 [facility] mg/dL SERVICES TOTAL BILI 0.3 0.1 - 1.1 mg/dL [facility] CALCIUM 9.6 8.6 - 10.6 [facility] mg/dL SERVICES T PROTEIN 7.5 6.3 - 8.2 g/dL [facility] ALBUMIN 4.5 3.5 - 5.0 g/dL [facility] ALK PHOS 76 34 - 122 U/L [facility] ALTv 20 5 - 50 U/L [facility] AST(SGOT) 21 13 - 40 U/L [facility] eGFR Calculation 22.0 mL/min/1.73m2 [facility] (Non- SERVICES Citizen Of [place]) eGFR Calculation 26.6 mL/min/1.73m2 [facility] () SERVICES Specimen Blood Narrative Performed At Association of Glomerular Filtration Rate (GFR) and St aging [facility] of Kidney Disease* + + +------- ------ + | GFR (mL/min/1.73 m2) | With Kidney Damage | Wi thout Kidney Damage + + +------- ------ + | >90 | Stage one | Normal + + +------- ------ + | 60-89 | Stage two | Decreased GFR + + +------- ------ + | 30-59 | Stage three | Stage three + + +------- ------ + | 15-29 | Stage four | Stage four + + +------- ------ + | <15 (or dialysis) | Stage five | Stage five + + +------- ------ + *Each stage assumes the associated GFR level has been in effect for at least three months. Stages 1 to 5, wit h or without kidney disease, indicate chronic kidney disease. Notes: Determination of stages one and two (with eGFR >59mL/min/1.73 m2) requires estimation of kidney damag e for at least three months as defined by structural or func tional abnormalities of the kidney, manifested by either: Pathological abnormalities or Markers of kidney damage (including abnormalities in the composition of the blo od or urine or abnormalities in imaging tests) . Performing Organization Address City/State/Zipcode Phone Number [facility] CLIA: [id number] [place] [address] [place] [address] VITAMIN D, 25-OH (09/16/2019 4:42 PM CDT) Pathologist Sig nature VIT D 25OH 68 25 - 80 ng/mL [facility] Specimen Blood Narrative Performed At Deficiency: <20 ng/mL [facility] Insufficiency: 20-24 ng/mL Optimal: 25-80 ng/mL Performing Organization Address City/[facility] Cent[facility]ode Phone Number [facility] CLIA: [id number] [place] [address] [place] [address] documented in this encounter Visit Diagnoses Diagnosis Elevated serum creatinine - Primary Other nonspecific findings on examinatio n of blood Hyperparathyroidism due to renal insuffi ciency Secondary hyperparathyroidism (of renal origin) Anemia, unspecified type documented in this encounter Insurance Payer Benefit Plan / Subscriber ID Effective Dates Phone Addre ss Type Group MEDICARE MEDICARE PART [id number]-Hamzah [phone] Medicare [address] [id number] [place] [id number] documented as of this encounter
--- OUTSIDE RECORDS SUMMARY | 2020-03-17 08:46 | XMS REPORT ---
:1950 Author Organization [facility] Address [address] [place], [place]. [address] [place] [address] Care Team Providers Name Role Phone Syed Unavailable [phone] PROBLEMS Type Condition ICD9-CM SAG19-EG Onset Condition SNOMED Code Notes Code Code Dates Status Problem Diaz catheter Z97.[address] Problem Abnormal renal R94.4 Active 127919956 function test Problem At risk for Z91.81 Active 724622480 falls Problem Chronic J44.9 Active 54919393 obstructive pulmonary disease, unspecified COPD type Problem Tobacco use Z72.0 Active 960829837 Problem Generalized R53.1 Active 19787986 weakness Problem Skin lesions L98.9 Active 50191163 Multiple; including moles at face/back. Problem Allergic T78.40XA Active 019606934 reaction, initial encounter Problem Peripheral R60.9 Active 697588996 edema Problem History of Z85.51 Active 275467485 bladder cancer Problem Itching L29.9 Active 163340063 Problem Urinary R33.9 Active 364044982 retention Problem Hypoxia R09.02 Active 824190952 Problem Bladder cancer C67.9 Active 674868783 ALLERGIES Allergen (clinical Drug/Non Drug Reaction Allergy Type Onset Date S tatus drug ingredient) Allergy documented on EMR PrednisoLONE swelling, Drug Allergy Active itching, breakout ENCOUNTERS from 1950 to 2020-03-13 Encounter Location Date Provider Diagnosis [place] [facility] 200 Mar, [facility] Specialty/[place] [address] IMMUNIZATIONS Vaccine Route Administration Date Status Rocephin (Ceftriaxone) IM Intramuscular Dec 07, 2019 Administ kain Solumedrol 125mg/2ml IM Intramuscular Oct 21, 2019 [...] Start Date End Date Status Frequency, Duration) Cefpodoxime Proxetil 200 1 tablet with food Mar, 1 Mar, Active MG Orally Twice a day for 14 day(s) Flomax 0.4 MG 1 capsule Orally Once Active a day for 30 day(s) BusPIRone HCl 10 MG 1 tablet Orally three Active times a day Cipro 500 MG 1 tablet Orally every Mar,Mar, Active 12 hrs for 14 day(s) Ferrous Sulfate 324 MG 1 tablet Orally Once a Active day Albuterol Sulfate (2.5 3 ml as needed Active MG/3ML) 0.083% Inhalation 2 times daily as directed Tamsulosin HCl 0.4 MG 1 capsule Orally Once Active a day for 90 days Cefdinir 300 MG as directed Orally BID Active for 7 days Ibuprofen 600 MG 1 tablet with food or Active milk as needed Orally Three times a day Mucinex DM 30-600 MG 1 -2 tablet as needed Active Orally every 12 hrs PROCEDURES No Information RESULTS No Results REASON [...] Medication Name Sig Start Date Stop Date Cipro 500 MG 1 tablet Orally every 12 hrs Mar, Mar, for 14 day(s) Cefpodoxime Proxetil 200 MG 1 tablet with food Orally Twice 2020Mar, a day for 14 day(s) Next Appt Details Provider Name:Colin Morgan, 03:30:00 PM, [address] [place] [address] 200, [place], [address], Provider Name:Eduard Tr Kunal, 2020-03-30 01:30:00 PM, [address] [facility], [place] [address], [place], [address], Provider Name:Sanam Joya, 11:00:00 AM, [address] [place] [address], [place], [address], Insurance Providers Payer Name Payer Payer Insured Name Patient Coverage Covera End Address Phone Relationship to Start Date Wes e Insured [employer] [address] [address] [phone] Andrea Gregory [facility] [address] [facility] [address]
--- OUTSIDE RECORDS SUMMARY | 2020-03-17 08:46 | XMS REPORT ---
:1950 Author Organization [facility] Address 210 [facility], [place]. 200 [place] [address] Care Team Providers Name Role Phone Eddie Unavailable [phone] PROBLEMS Type Condition ICD9-CM GXR08-PC Onset Condition SNOMED Code Notes Code Code Dates Status Problem Diaz catheter Z97.[address] Problem Abnormal renal R94.4 Active 333150002 function test Problem At risk for Z91.81 Active 850191690 falls Problem Chronic J44.9 Active 18322465 obstructive pulmonary disease, unspecified COPD type Problem Tobacco use Z72.0 Active 014473444 Problem Generalized R53.1 Active 55971032 weakness Problem Skin lesions L98.9 Active 48056329 Multiple; including moles at face/back. Problem Allergic T78.40XA Active 815283407 reaction, initial encounter Problem Peripheral R60.9 Active 301477595 edema Problem History of Z85.51 Active 232782142 bladder cancer Problem Itching L29.9 Active 192638568 Problem Urinary R33.9 Active 177125118 retention Problem Hypoxia R09.02 Active 312062312 Problem Bladder cancer C67.9 Active 731076141 ALLERGIES Allergen (clinical Drug/Non Drug Reaction Allergy Type Onset Date S tatus drug ingredient) Allergy documented on EMR PrednisoLONE swelling, Drug Allergy Active itching, breakout ENCOUNTERS from 1950 to 2020-03-13 Encounter Location Date Provider Diagnosis [place] 210 [facility] 200 04 Mar, 2020 Colin Morgan Specialty/[place] [address] IMMUNIZATIONS Vaccine Route Administration Date Status Rocephin [...] Information RESULTS No Results REASON FOR VISIT Consult MEDICAL (GENERAL) HISTORY Type Description Date Medical [...] 14 day(s) Next Appt Details Provider Name:Colin Morgan 03:30:00 PM, [address] [place] [address], [place], [address], Provider Name:Eduard Armando Kunal, 2020-03-30 01:30:00 PM, [address] [facility] 200, [place], [address], Provider Name:Sanam Doris Joya, 11:00:00 AM, [address] [place] [address], [place] [address], [place], [address], Insurance Providers Payer Name Payer Payer Insured Name Patient Coverage Covera End Address Phone Relationship to Start Date Wes e Insured [employer] [address] [address] [phone] Andrea Gregory [facility] [address] [place] [phone]
--- OUTSIDE RECORDS SUMMARY | 2020-03-17 08:46 | XMS REPORT | Summary of Care ---
:1950 Author Organization [facility] Address [address] [place] [address] Care Team Providers Name Role Phone [place] Primary Care Provider Reason for Referral Radiology Services (ADRIAN) Status Reason Specialty Diagnoses / Procedures Referred By Helder camacho To Contact Contact Closed Diagnostic Diagnoses Elevated serum creatinine Zak, Radiology Procedures US RETROPERITONEAL LIMITED MD Paulie [address] [place] [address] Reason for Visit Reason Comments New Patient kidney (Routine) Status Reason Specialty Diagnoses / Referred By Referred To Procedures Contact Contact New Request Nephrology Diagnoses Kidney failure Creatinine elevation [place], Procedures CONSULT NEPHROLOGY C MD Paulie [address] [place] [phone] Phone: Fax: Encounter Details Date Type Department Care Team Description 09/16/2019 Office Visit [facility] Zak, Elevated serum creatinine (Primary Dx); Nephrology- MD Paulie 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 Latest known visit with results is: Construction Coordinator Visit on 09/08/2019 Component Date Value NA [...] with grayscale and selected color Doppler imaging. Personnel Training Officer images were obtained for the record. COMPARISON: [...] TIME FOLLOW-UP: 2-3 MONTHS Paulie Crespo MD sleeping bag filler Director, Division of Nephrology & Hypertension 4.[address] Paulie Patterson Tarkio O [phone] F [phone] M [phone] P [phone] E [email or web address] documented in this encounter Plan of Treatment [...] Elevated serum creatinine Results for this PANEL (69312) PM CDT Hyperparathyroidism due to procedure are [...] gr ayscale and selected color Doppler imaging. Personnel Training Officer images were obta ined for the record. [...] with grayscale and selected color Doppler imaging. Personnel Training Officer im ages were obtained for the record. [...] with the above report. Performing Organization Address City/[facility] Phone Number PACS/VR/DOSE FERRITIN SERUM (09/16/2019 4:42 PM CDT) Pathologist Sig [facility] FERRITIN 152.0 18.0 - 464.0 ng/mL [facility] ES Specimen Blood Narrative Performed At Biotin has been reported to cause a negative bias, int erpret [facility] results relative to patient's use of biotin. Performing Organization Address City/[facility] Phone Number [facility] CLIA: [id number] [place] [address] [phone] 301 [facility] TOTAL IRON BINDING CAPACITY (09/16/2019 4:42 PM CDT) Pathologist Sig [facility] TIBC 308 250 - 410 ug/dL [facility] % FE SAT 22 20 - 50 % [facility] Specimen Blood Performing Organization Address [facility] Phone Number [facility] CLIA: [id number] [place], [place] [address] 301 [facility] IRON (09/16/2019 4:42 PM CDT) Pathologist Sig nature IRON 67 50 - 160 ug/dL [facility] Specimen Blood Performing Organization Address City/State/Zipcode Phone Number [facility] CLIA: [id number] [place] [address] [place] [address] COMP. METABOLIC PANEL (69281) (09/16/2019 4:42 PM CDT) NA 140 135 - 145 [facility] mmol/L SERVICES K 6.2 (HH) 3.5 - 5.0 [facility] mmol/L SERVICES CL 103 98 - 108 mmol/L [facility] CO2 TOTAL 30 23 - 31 mmol/L [facility] AGAP 7 2 - 16 [facility] BUN 34 (H) 7 - 23 mg/dL [facility] GLUCOSE 99 70 - 110 mg/dL [facility] CREATININE 2.86 (H) 0.60 - 1.25 [facility] mg/dL SERVICES TOTAL BILI 0.3 0.1 - 1.1 mg/dL [facility] CALCIUM 9.6 8.6 - 10.6 [facility] mg/dL SERVICES T PROTEIN 7.5 6.3 - 8.2 g/dL [facility] ALBUMIN 4.5 3.5 - 5.0 g/dL [facility] ALK PHOS 76 34 - 122 U/L [facility] ALTv 20 5 - 50 U/L [facility] AST(SGOT) 21 13 - 40 U/L [facility] eGFR Calculation 22.0 mL/min/1.73m2 [facility] (Non- SERVICES Libyan) eGFR Calculation 26.6 mL/min/1.73m2 [facility] () SERVICES Specimen Blood Narrative Performed At Association of Glomerular Filtration Rate (GFR) and St aging [facility] of Kidney Disease* + + [...] . Performing Organization Address City/State/Zipcode Phone Number [facility] CLIA: [id number] [place] [address] [place] [address] VITAMIN D, 25-OH (09/16/2019 4:42 PM CDT) Pathologist Sig nature VIT D 25OH 68 25 - 80 ng/mL [facility] Specimen Blood Narrative Performed At Deficiency: <20 ng/mL [facility] Insufficiency: 20-24 ng/mL Optimal: 25-80 ng/mL Performing Organization Address City/[facility] Phone Number [facility] CLIA: [id number] [place] [address] [place] [address] documented in this encounter Visit Diagnoses Diagnosis Elevated serum creatinine - Primary Other nonspecific findings on examinatio n of blood 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 Medicare A & B t 2 [id number] [place] [phone] documented as of this encounter
--- OUTSIDE RECORDS SUMMARY | 2020-03-17 08:46 | XMS REPORT ---
:1950 Author Organization [facility] Address [address] [facility], [place]. [address] [place] [address] Care Team Providers Name Role Phone Eddie Unavailable [phone] PROBLEMS Type Condition ICD9-CM HTP80-IW Onset Condition SNOMED Code Notes Code Code Dates Status Problem Hypoxia R09.02 Active 955846969 Problem Itching L29.9 Active 092832584 Problem Allergic T78.40XA Active 239399342 reaction, initial encounter Problem History of Z85.51 Active 460282962 bladder cancer Problem Tobacco use Z72.0 Active 357856328 Problem Chronic J44.9 Active 35189167 obstructive pulmonary disease, unspecified COPD type Problem At risk for Z91.81 Active 138594225 falls Problem Abnormal renal R94.4 Active 844881128 function test Problem Urinary R33.9 Active 030806779 retention Problem Incomplete R33.9 Active 621428877 bladder emptying Problem Diaz catheter Z97.[address] Problem Recurrent UTI N39.0 Active 678890111 Problem Generalized R53.1 Active 36844095 weakness Problem Bladder cancer C67.9 Active 949169273 Problem Peripheral R60.9 Active 174137589 edema Problem Skin lesions L98.9 Active 58929499 Multiple; including moles at face/back. 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 ALLERGIES Allergen (clinical Drug/Non Drug Reaction Allergy Type Onset Date S tatus drug ingredient) Allergy documented on EMR PrednisoLONE swelling, Drug Allergy Active itching, breakout ENCOUNTERS from 1950 to 2020-03-15 Encounter Location Date Provider Diagnosis [place] [facility] [place] [place], Colin Morgan Recurren t UTI N39.0 Specialty/Urology [address], ; [place] [address] carcinoma with low risk of recurre nce C68.9 and Incomplete blad miranda emptying R33.9 IMMUNIZATIONS Vaccine Route Administration Date Status Rocephin (Ceftriaxone) IM Intramuscular Mar 15, 2020 Administ ered Rocephin (Ceftriaxone) IM Intramuscular Dec 07, 2019 [...] REASON FOR REFERRAL No Information VITAL SIGNS Height 73.00 in Mar, Weight 133.2 lbs Mar, Temperature 98.0 degrees Fahrenheit Mar, BMI 17.57 kg/m2 Mar, Oximetry 84 % Mar, Blood pressure systolic 83 mm Hg Mar, Blood pressure diastolic 48 mm Hg Mar, MEDICATIONS Medication SIG (Take, Route, Notes Start Date End Date Status Frequency, Duration) Cipro 500 MG 1 tablet Orally every Mar,Mar, Active 12 hrs for 14 day(s) Flomax 0.4 MG 1 capsule Orally Once Active a day for 30 day(s) BusPIRone HCl 10 MG 1 tablet Orally three Active times a day Ferrous Sulfate 324 MG 1 tablet Orally Once a Active day Ibuprofen 600 MG 1 tablet with food or Active milk as needed Orally Three times a day Albuterol Sulfate (2.5 3 ml as needed Active MG/3ML) 0.083% Inhalation 2 times daily as directed Cefdinir 300 MG as directed Orally BID Active for 7 days Cefpodoxime Proxetil 200 1 tablet with food Mar, 1 Mar, Active MG Orally Twice a day for 14 day(s) Tamsulosin HCl 0.4 MG 1 capsule Orally Once Active a day for 90 days Mucinex DM 30-600 MG 1 -2 tablet as needed Active Orally every 12 hrs PROCEDURES No Information RESULTS No Results REASON FOR VISIT cysto, bladder scan MEDICAL (GENERAL) HISTORY Type Description Date Medical History Allergic rhinitis Medical History Cancer Medical History Memory problem Medical History Swelling Medical History Anxiety Medical History COPD (chronic obstructive pulmonary dise ase) Medical History Kidney disease Medical History Sinus problem Medical History prostate problems Surgical History bladder cancer 2020 Goals Section No Information Health Concerns No Information MEDICAL EQUIPMENT No Information MENTAL STATUS No Information FUNCTIONAL STATUS No Information ASSESSMENTS Encounter Date Diagnosis Assessment Notes Treatment Notes Treatm ent Clinical Notes Mar, Recurrent UTI (ICD-10 - N39.0) Mar, Urothelial carcinoma with low risk of recurrence (ICD-10 - C68.9) Mar, Incomplete bladder emptying (ICD-10 - R33.9) PLAN OF TREATMENT Treatment Notes Test Name Order Date PVR 2020-03-15 Next Appt Details Provider Name:Colin Morgan, 01:30:00 PM, [address] [place] [address], [phone], Provider Name:Eduard Syed, 2020-03-30 01:30:00 PM, [address] [place] [address], [address], [address], Provider Name:Sanam Joya, 11:00:00 AM, [address] [place] [address], [address], Insurance Providers Payer Name Payer Payer Insured Name Patient Coverage Covera End Address Phone Relationship to Start Date Wes e Insured [employer] [address] [address] [phone] Andrea Gregory [facility] [address] [place] [phone]
[2020-03-17 09:19] VITALS: BP 91/49; TEMP 97.9; O2SAT 96; BMI 18.8
[2020-03-17 09:21] LABS: Hematocrit 14.4 % (39.6-49.0)
[2020-03-17 10:00] LABS: Ferritin 199.2 ng/mL (26-388); Folic Acid, (Folate) 6.1 ng/mL (3.1-17.5)
[2020-03-17] MEDS ORDERED: EPOETIN ALFA-EPBX 10,000 UNIT/ML VIAL ONE (10:14)
== END 2020-03-17 10:15 | disposition home or self-care (01) ==
LOC: DS 08:43
PROVIDERS: ATTEND Internal Medicine Nephrology
DX: N18.4 Chronic kidney disease, stage 4 (severe) (principal); D63.1 Anemia in chronic kidney disease
CPT/HCPCS: 36415; 82607; 82728; 82746; 83540; 84466; 85014; 85018; 96372; Q5106

== ENCOUNTER 2020-03-17 10:17 | Inpatient (IN) | payer OTHER ==
--- OUTSIDE RECORDS SUMMARY | 2020-03-17 10:20 | XMS REPORT | Continuity of Care Document ---
:1950 Author Organization [facility] t Address [address] [place] [address] Care Team Providers Name Role Phone Zak [...] [address] [facility] HCl HCl 10-21 [facility] Cefdinir Cefdinir 2019- No [facility] 10-21 [facility] Flomax Flomax Yes Sanam 1 capsule [facility] Albuterol Albuterol Yes Sanam [address] [facility] Sulfate Sulfate [facility] needed [facility] Ferrous Ferrous Yes Sanam [address] [facility] [address] Sulfate Sulfate Toan [facility] BusPIRone BusPIRone Yes Sanam [address] [facility] [address] HCl HCl Toan [facility] Ibuprofen Ibuprofen Yes Sanam [address] [facility] with food [facility] - or milk as [facility] Mucinex DM Mucinex DM Yes Sanam 1 -[address] Toan tablet as [facility] Procedures This patient has no known procedures. Encounters Start End Encounter Admission Attending Care Care Encounter Source Date/Time Date/Time Type Type Clinicians Facility Department ID 2020-03-15 2020-03-15 Outpatient [facility] [id number] [facility] 2020-03-13 2020-03-13 Outpatient [facility] [id number] [facility] 2020-03-12 2020-03-12 Outpatient [facility] [id number] [facility] 2020-03-07 2020-03-07 Outpatient [facility] [id number] [facility] 2020-02-11 2020-02-11 Outpatient [facility] [id number] [facility] 2019-12-09 2019-12-09 Outpatient [facility] [id number] [facility] 2019-12-07 2019-12-07 Outpatient [facility] [id number] [facility] 2019-12-01 2019-12-01 Outpatient [facility] [id number] [facility] 2019-12-01 2019-12-01 Outpatient [facility] [id number] [facility] 2019-11-26 2019-11-26 Outpatient [facility] [id number] [facility] 2019-11-18 2019-11-18 [facility] [id number] [facility] [address] 11:00:00 11:00:00 t [facility] - [facility]y [facility] Outpati ent Clinics 2019-11-11 2019-11-11 [facility] [id number] [address] 13:08:00 13:08:00 t Specialty/U [facility] - Specialty rology [facility] l Clinic Outpati ent Clinics 2019-10-27 2019-10-27 [facility] [id number] [facility] [address] 10:30:00 10:30:00 t Specialty/U [facility] - Specialty rology [facility] l Clinic Outpati ent Clinics 2019-10-23 2019-10-23 [facility] [id number] 14:29:00 14:29:00 t [facility] Outpati ent Clinics 2019-10-22 2019-10-22 [facility] [id number] 15:15:00 15:15:00 t Specialty/U [facility] - Specialty rology [facility]Urology Clinic l Clinic Outpati ent Clinics 2019-09-16 2019-09-16 Office [facility]ly [facility] [id number] 14:24:14 16:28:18 Visit , [facility] [id number] [place] [id number] Results This patient has no known results.
[2020-03-17 11:46] LABS: Absolute Lymphocytes (CBC) 0.3 K/uL (0.7-4.9); Basophils % 0.3 % (0-1.3); Lymphocytes % 6.5 % (15.3-44.8); MPV 10.1 fL (7.6-11.3); RBC Red Blood Cell Count 1.64 M/uL (4.33-5.43)
[2020-03-17 11:54] LABS: Hematocrit 15.2 % (39.6-49.0)
[2020-03-17 11:57] LABS: RBC Red Blood Cell Count 1.6 M/uL (4.33-5.43)
[2020-03-17 12:31] LABS: Potassium 3.2 mmol/L (3.5-5.1)
[2020-03-17 12:34] LABS: Anisocytosis SLIGHT; Blood Morphology Comment NOTED (NOT SEEN); Platelet Estimate DECR
--- NOTE | 2020-03-17 13:11 | ER ---
Nurse's Notes [facility] Name: Harley Gregory Age: 69 yrs Sex: Male : 1950 Arrival Date: 03/17/2020 Time: 10:19 Bed 8 Private MD: Diagnosis: Acute kidney failure;Anemia in chronic kidney disease Presentation: 03/17 11:05 Chief complaint: Patient states: Had labs drawn this morning for day surgery which came ss back with HGB of 7.8. Pt c/o fatigue "for a while." Sent from day surgery where he had a Procrit injection. Coronavirus screen: Client denies travel out of the [place] in the last 14 days. Ebola Screen: Patient denies exposure to infectious person. Patient denies travel to an Ebola-affected area in the 21 days before illness onset. Initial Sepsis Screen: Does the patient meet any 2 criteria? No. Patient's initial sepsis screen is negative. Does the patient have a suspected source of infection? No. Patient's initial sepsis screen is negative. Risk Assessment: Do you want to hurt yourself or someone else? Patient reports no desire to harm self or others. Onset of symptoms is unknown. 11:05 Method Of Arrival: Wheelchair ss 11:05 Acuity: EARLENE 2 ss Historical: - Allergies: 11:16 Codeine; ss 11:16 Cipro; ss - PMHx: 11:16 COPD; enlarged prostate; Hypertension; ss - PSHx: 11:16 tumor removed from bladder; ss - Immunization history:: Adult Immunizations up to date. - Social history:: Smoking status: unknown. Screenin:38 Abuse screen: Denies threats or abuse. Denies injuries from another. Nutritional jl7 screening: No deficits noted. Tuberculosis screening: No symptoms or risk factors identified. Fall Risk IV access (20 points). Total Kirkpatrick Fall Scale indicates No Risk (0-24 pts). Assessment: 11:20 General: Appears in no apparent distress. uncomfortable, Behavior is calm, cooperative, jl7 appropriate for age. Pain: Denies pain. Neuro: Level of Consciousness is awake, alert, obeys commands, Oriented to person, place, time, situation. Cardiovascular: Patient's skin is warm and dry. Respiratory: Airway is patent Respiratory effort is even, unlabored, Respiratory pattern is regular, symmetrical. Derm: Skin is dry, Skin is pale, Skin temperature is cool. 12:30 Reassessment: Patient appears in no apparent distress at this time. No changes from jl7 previously documented assessment. Patient and/or family updated on plan of care and expected duration. Pain level reassessed. Patient is alert, oriented x 3, equal unlabored respirations, skin warm/dry/pink. 14:01 Reassessment: Patient appears in no apparent distress at this time. Patient is alert, ca1 oriented x 3, equal unlabored respirations, skin warm/dry/pink. Provider notified with pt's BP at this time. 15:00 Reassessment: Patient appears in no apparent distress at this time. No changes from jl7 previously documented assessment. Patient and/or family updated on plan of care and expected duration. Pain level reassessed. Patient is alert, oriented x 3, equal unlabored respirations, skin warm/dry/pink. 16:00 Reassessment: Patient appears in no apparent distress at this time. No changes from jl7 previously documented assessment. Patient and/or family updated on plan of care and expected duration. Pain level reassessed. Patient is alert, oriented x 3, equal unlabored respirations, skin warm/dry/pink. 16:00 Reassessment: 1st unit PRBC started to right FA. jl7 17:33 Reassessment: Updated pt's son via phone, Nabeel [phone]. jl7 18:25 Reassessment: 2nd unit of PRBCs started to right FA. jl7 21:47 Reassessment: Patient appears in no apparent distress at this time. Patient is alert, rv oriented x 3, equal unlabored respirations, skin warm/dry/pink. Vital Signs: 11:05 BP 90 / 46; Pulse 65; Resp 18; Temp 97.5(TE); Pulse Ox 100% on R/A; ss 11:38 BP 100 / 62; Pulse 66; Resp 15; Pulse Ox 100% ; jl7 12:30 BP 107 / 66; Pulse 70; Resp 17 S; Pulse Ox 99% on R/A; ca1 13:00 BP 100 / 70; Pulse 73; Resp 16 S; Pulse Ox 98% on R/A; ca1 13:00 BP 82 / 54; Pulse 73; Resp 16 S; Pulse Ox 98% on R/A; ca1 13:59 BP 89 / 51; Pulse 74; Resp 15 S; Pulse Ox 98% on R/A; ca1 14:07 BP 93 / 53; Pulse 74; Resp 16 S; Pulse Ox 99% on R/A; ca1 16:00 BP 100 / 56; Pulse 70; Resp 15; Pulse Ox 96% ; jl7 16:39 Weight 64.41 kg; Height 6 ft. 2 in. (187.96 cm); jl7 17:00 BP 103 / 67; Pulse 76; Resp 16 S; Pulse Ox 97% on R/A; ca1 18:00 BP 104 / 66; Pulse 79; Resp 20 S; Pulse Ox 99% on R/A; ca1 19:00 BP 102 / 69; Pulse 76; Resp 16 S; Pulse Ox 95% on R/A; ca1 20:00 BP 109 / 66; Pulse 70; Resp 16 S; Pulse Ox 99% on R/A; ca1 21:00 BP 101 / 65; Pulse 70; Resp 17 S; Pulse Ox 97% on R/A; ca1 16:39 Body Mass Index 18.23 (64.41 kg, 187.96 cm) jl7 ED Course: 10:19 Patient arrived in ED. bp1 10:56 Jak Hudson, NEO is Primary Nurse. jl7 10:58 Tobias Boucher PA is PHCP. jr8 10:58 Samir Silav MD is Attending Physician. jr8 11:14 Triage completed. ss 11:16 Arm band placed on right wrist. ss 11:38 Patient has correct armband on for positive identification. Bed in low position. Call [facility] light in reach. Side rails up X2. Pulse ox on. NIBP on. Warm blanket given. 11:38 Initial lab(s) drawn, by wv, sent to lab. Inserted saline lock: 20 gauge in right jl7 wrist, using aseptic technique. Blood collected. 13:10 Tobi Silva MD is Hospitalizing Provider. jr8 13:52 XRAY Chest (1 view) In Process Unspecified. EDMS 14:50 COVID swab sent to lab. jl7 14:54 COVID-19 Sent. em1 15:01 Bb Add On Sent. jl7 16:00 No provider procedures requiring assistance completed. Patient admitted, IV remains in jl7 place. intact, No redness/swelling at site. Inserted saline lock: 20 gauge in left forearm, using aseptic technique. Administered Medications: 21:02 Drug: Rocephin 1 grams Route: IV; Rate: calculated rate; Site: right hand; rv 21:32 Follow up: IV Status: Completed infusion; IV Intake: 10ml rv 21:32 Drug: Calcium Gluconate 1 grams Route: IVPB; Infused Over: 60 mins; Site: right hand; rv Medication: 21:44 Blood products: PRBCs X 2 units given. See transfusion record. rv Intake: 21:32 IV: 10ml; Total: 10ml. rv Outcome: 13:11 Decision to Hospitalize by Provider. jr8 21:40 Admitted to Med/surg accompanied by tech, via wheelchair, room 214, Other sbar, ekg, bt rv consent Report called to arnulfo wilburn 21:40 Condition: good 21:40 Instructed on the need for admit. 22:13 Patient left the ED. ca1 Signatures: Dispatcher [employer] EDMS Jatin Torres em1 Jonna Hylton RN RN Tobias Boucher PA PA jr8 Jak Hudson RN RN jl7 Jason King RN RN rv Cheryle Carreno RN RN ca1 [facility] Corrections: (The following items were deleted from the chart) 11:38 11:20 BP 100 / 62; Pulse 66bpm; Resp 15bpm; Pulse Ox 100%; jl7 jl7
--- NOTE | 2020-03-17 13:12 | EDPHYS ---
Physician Documentation [facility] Name: Harley Gregory Age: 69 yrs Sex: Male : 1950 Arrival Date: 03/17/2020 Time: 10:19 Bed 8 Private MD: ED Physician Samir Silva HPI: 03/17 13:07 This 69 yrs old Male presents to ER via Wheelchair with complaints of jr8 Abnormal Lab Results. 13:07 Patient sent to ED for evaluation after getting blood work results back from [facility] computer operations analyst. Found to have hemoglobin of 4.8 which was drastically different from this past November. Patient is known stage 4 CKD patient . Severity of symptoms: At their worst the symptoms were moderate in the emergency department the symptoms are unchanged. The patient has not experienced similar symptoms in the past. The patient has been recently seen by a physician:. 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 - Social history:: Smoking status: unknown. ROS: 13:07 Eyes: Negative for injury, pain, redness, and discharge, ENT: Negative for injury, jr8 pain, and discharge, Neck: Negative for injury, pain, and swelling, Cardiovascular: Negative for chest pain, palpitations, and edema, Respiratory: Negative for shortness of breath, cough, wheezing, and pleuritic chest pain, Abdomen/GI: Negative for abdominal pain, nausea, vomiting, diarrhea, and constipation, Back: Negative for injury and pain, MS/Extremity: Negative for injury and deformity, Skin: Negative for injury, rash, and discoloration, Neuro: Negative for headache, weakness, numbness, tingling, and seizure. 13:07 Constitutional: Positive for fatigue. Exam: 13:07 Eyes: Pupils equal round and reactive to light, extra-ocular motions intact. Lids and jr8 lashes normal. Conjunctiva and sclera are non-icteric and not injected. Cornea within normal limits. Periorbital areas with no swelling, redness, or edema. ENT: Nares patent. No nasal discharge, no septal abnormalities noted. Tympanic membranes are normal and external auditory canals are clear. Oropharynx with no redness, swelling, or masses, exudates, or evidence of obstruction, uvula midline. Mucous membranes moist. Neck: Trachea midline, no thyromegaly or masses palpated, and no cervical lymphadenopathy. Supple, full range of motion without nuchal rigidity, or vertebral point tenderness. No Meningismus. Cardiovascular: Regular rate and rhythm with a normal S1 and S2. No gallops, murmurs, or rubs. Normal PMI, no JVD. No pulse deficits. Respiratory: Lungs have equal breath sounds bilaterally, clear to auscultation and percussion. No rales, rhonchi or wheezes noted. No increased work of breathing, no retractions or nasal flaring. Abdomen/GI: Soft, non-tender, with normal bowel sounds. No distension or tympany. No guarding or rebound. No evidence of tenderness throughout. Back: No spinal tenderness. No costovertebral tenderness. Full range of motion. Skin: Warm, dry with normal turgor. Dusky with no rashes, no lesions, and no evidence of cellulitis. MS/ Extremity: Pulses equal, no cyanosis. Neurovascular intact. Full, normal range of motion. Neuro: Awake and alert, GCS 15, oriented to person, place, time, and situation. Cranial nerves II-XII grossly intact. Motor strength 5/5 in all extremities. Sensory grossly intact. Cerebellar exam normal. Normal gait. Vital Signs: 11:05 BP 90 / 46; Pulse 65; Resp 18; Temp 97.5(TE); Pulse Ox 100% on R/A; ss 11:38 BP 100 / 62; Pulse 66; Resp 15; Pulse Ox 100% ; jl7 12:30 BP 107 / 66; Pulse 70; Resp 17 S; Pulse Ox 99% on R/A; ca1 13:00 BP 100 / 70; Pulse 73; Resp 16 S; Pulse Ox 98% on R/A; ca1 13:00 BP 82 / 54; Pulse 73; Resp 16 S; Pulse Ox 98% on R/A; ca1 13:59 BP 89 / 51; Pulse 74; Resp 15 S; Pulse Ox 98% on R/A; ca1 14:07 BP 93 / 53; Pulse 74; Resp 16 S; Pulse Ox 99% on R/A; ca1 16:00 BP 100 / 56; Pulse 70; Resp 15; Pulse Ox 96% ; jl7 16:39 Weight 64.41 kg; Height 6 ft. 2 in. (187.96 cm); jl7 17:00 BP 103 / 67; Pulse 76; Resp 16 S; Pulse Ox 97% on R/A; ca1 18:00 BP 104 / 66; Pulse 79; Resp 20 S; Pulse Ox 99% on R/A; ca1 19:00 BP 102 / 69; Pulse 76; Resp 16 S; Pulse Ox 95% on R/A; ca1 20:00 BP 109 / 66; Pulse 70; Resp 16 S; Pulse Ox 99% on R/A; ca1 21:00 BP 101 / 65; Pulse 70; Resp 17 S; Pulse Ox 97% on R/A; ca1 16:39 Body Mass Index 18.23 (64.41 kg, 187.96 cm) [facility] MDM: 10:58 Patient medically screened. [facility] 13:07 Data reviewed: vital signs, nurses notes, lab test result(s), EKG, radiologic studies, [facility] plain films. Data interpreted: Pulse oximetry: on room air is 100 %. Interpretation: normal. Counseling: I had a detailed discussion with the patient and/or guardian regarding: the historical points, exam findings, and any diagnostic results supporting the discharge/admit diagnosis, lab results, radiology results, the need for further work-up and treatment in the hospital. 03/17 11:11 Order name: CBC with Diff; Complete Time: 12:58 [facility] 03/17 11:11 Order name: Basic Metabolic Panel; Complete Time: 12:58 [facility] 03/17 11:14 Order name: Retic Count; Complete Time: 12:58 [facility] 03/17 12:34 Order name: Manual Differential; Complete Time: 12:58 [facility] 03/17 13:09 Order name: Protime (+inr); Complete Time: 14:38 03/17 13:09 Order name: Ptt, Activated; Complete Time: 14:38 [facility] 03/17 13:09 Order name: TS [facility] 03/17 13:17 Order name: Bb Add On 03/17 13:35 Order name: Packed RBC Leukored [facility] 03/17 14:37 Order name: COVID-19 03/17 15:02 Order name: CORONAVIRUS [facility] 03/17 15:57 Order name: SARS-COV-2 RT PCR; Complete Time: 16:31 EDMS 03/17 20:43 Order name: Urine Microscopic Only ca1 03/17 20:46 Order name: Urine Dipstick--Ancillary (enter results) tt3 03/17 11:11 Order name: IV; Complete Time: 11:37 8 03/17 13:09 Order name: XRAY Chest (1 view); Complete Time: 14:07 8 03/17 13:09 Order name: EKG - Nurse/Tech; Complete Time: 13:48 8 03/17 14:18 Order name: CONS Physician Consult EDMS 03/17 19:55 Order name: Urine Dipstick-Ancillary (obtain specimen); Complete Time: 20:43 la1 03/17 19:55 Order name: Cath; Complete Time: 20:43 [facility] 03/17 21:04 Order name: Urine Dipstick-Ancillary; Complete Time: 21:57 EDMS 03/17 21:20 Order name: Urine Microscopic Only; Complete Time: 21:57 EDMS Administered Medications: 21:02 Drug: Rocephin 1 grams Route: IV; Rate: calculated rate; Site: right hand; rv 21:32 Follow up: IV Status: Completed infusion; IV Intake: 10ml rv 21:32 Drug: Calcium Gluconate 1 grams Route: IVPB; Infused Over: 60 mins; Site: right hand; rv Disposition: 03/18 09:18 Co-signature as Attending Physician, Samir Silva MD. rn Disposition: 03/17/20 13:11 Hospitalization ordered by Tobi Silva for Inpatient Admission. Preliminary diagnosis are Acute kidney failure, Anemia in chronic kidney disease. - Bed requested for Telemetry/MedSurg (Inpatient). - Status is Inpatient Admission. ca1 - Condition is Fair. - Problem is new. - Symptoms are unchanged. Signatures: Dispatcher [employer] EDCT Catrina Thompson, TEXTILE BROKER-C TEXTILE BROKER-CkSamir Newton MD MD rn Smirch, Shelby, RN RN Tobias Boucher PA PA jr8 Jaycob Dickerson FNP-C TEXTILE BROKER-Cla1 Ximena Mejía RN RN cg Jak Hudson RN RN jl7 Jason King RN RN rv AcCheryle apodaca RN RN ca1 Corrections: (The following items were deleted from the chart) 03/17 20:55 13:11 Hospitalization Ordered by Tobi Silva MD for Inpatient Admission. Preliminary cg diagnosis is Acute kidney failure; Anemia in chronic kidney disease. Bed requested for Telemetry/MedSurg (Inpatient). Status is Inpatient Admission. Condition is Fair. Problem is new. Symptoms are unchanged. jr8 22:13 20:55 03/17/2020 13:11 Hospitalization Ordered by Tobi Silva MD for Inpatient ca1 Admission. Preliminary diagnosis is Acute kidney failure; Anemia in chronic kidney disease. Bed requested for Telemetry/MedSurg (Inpatient). Status is Inpatient Admission. Condition is Fair. Problem is new. Symptoms are unchanged. cg
--- NOTE | 2020-03-17 14:04 | RAD REPORT ---
EXAM DESCRIPTION: RAD - Chest Single View - 03/17/2020 1:51 pm CLINICAL HISTORY: pre op, fatigue, history of COPD COMPARISON: Two view chest March 08, 2019 TECHNIQUE: AP portable chest image was obtained 03/17/2020 1:51 pm . FINDINGS: Lungs are fibrotic as a baseline with flattened diaphragm and blunting of each costophreni c angle. No focal consolidation or mass. Interstitial pattern is increased slightly from the comparis on study. No new mass or fullness of either hilum. Heart size and vasculature are increased slightly due to portable technique compared to prior PA technique. No measurable pleural effusion and no pneum othorax. No acute bony abnormality seen. No acute aortic findings suspected. IMPRESSION: Prominent COPD with no focal mass or consolidation. Interstitial pattern is increased over the baseline fibrosis. This is probably a mild interstitial ed gregor or possibly interstitial infiltrate. Rapidly progressing fibrosis is unlikely.
[2020-03-17 14:18] LABS: Protime INR 1.05
--- NOTE | 2020-03-17 15:03 | P.HP ---
Certification for Inpatient Patient admitted to: Inpatient With expected LOS: >2 Midnights Practitioner: I am a practitioner with admitting privileges, knowledge of patient current condition, hospital course, and medical plan of care. Services: Services provided to patient in accordance with Admission requirements found in Title 42 Section 412.3 of the Code of Federal Regulations Patient History Date of Service: 03/17/20 Primary Care Provider: Kunal Reason for admission: Acute Renal Failure, Severe Anemia History of Present Illness: 69yo M, PMH: CKD4, COPD, HTN, who was sent to ED by carbonizer tester after abnormal lab values obtained. He was found to be severely anemic (Hgb:4.8) and significantly elevated creatinine. He has a history of CKD4. He states over the past year has been feeling progressively fatigued/tired. He denies any bleeding. He currently denies any chest pain, shortness of breath, abdominal pain, rash/lesions. He states he was also undergoing preoperative work up for urologic procedure and was told he had a UTI. He was prescribed antibiotics but has not picked them up yet. He is unsure of what antibiotic he has been prescribed. In the ED, his hemoglobin is noted to be 5.0, creatinine up to 11.9, hypokalemic. Patient is alert and oriented x3, feels fatigued. Emergency department contacted his carbonizer tester who recommended the patient receive two units of blood tonight, undergo dialysis catheter insertion tomorrow by general surgery, and start hemodialysis. Allergies codeine Allergy (Verified 03/17/20 09:11) Hives ciprofloxacin [From Cipro] Adverse Reaction (Verified 03/17/20 09:11) Hives Home Medications: Tamsulosin [Flomax] 0.4 mg PO DAILY 03/08/19 Albuterol Sulfate [Albuterol Sulfate Hfa] 8.5 gm IH PRN 03/17/20 Umeclidinium Brm/Vilanterol Tr [Anoro Ellipta 62.5-25 Mcg INH] 1 each IH DAILY 03/17/20 - Past Medical/Surgical History Diabetic: No -: CKD4 -: COPD -: HTN -: BPH -: tumor removed from bladder - Family History Family History: Reviewed- Non-Contributory - Social History Smoking Status: Unknown if ever smoked Place of Residence: Home Review of Systems 10-point ROS is otherwise unremarkable Physical Examination - Physical Exam General: Alert, In no apparent distress, Other (thin) HEENT: EOMI Respiratory: Clear to auscultation bilaterally, Normal air movement Cardiovascular: Regular rate/rhythm Gastrointestinal: Soft and benign, Non-distended, No tenderness Integumentary: No significant lesion Neurological: Normal speech, Cranial nerves 3-12 intact, Normal affect - Studies Laboratory Data (last 24 hrs) 03/17/20 13:33: PT 12.4, INR 1.05, APTT 32.5 03/17/20 11:33: Sodium 135 L, Potassium 3.2 L, BUN 169 H, Creatinine 11.90 H*, Glucose 119 H 03/17/20 11:33: WBC 5.2, Hgb 5.0 L*, Hct 15.2 L*, Plt Count 98 L Assessment and Plan - Advance Directives Does patient have a Living Will: No Does patient have a Durable POA for Healthcare: No Physician Review Additional Text: Acute Renal Failure, h/o CKD4 Metabolic acidosis Severe anemia, anemia of chronic disease BPH Pruritis nephrology consulted for HD, metabolic acidosis likely secondary to renal failure / CKD no evidence of bleeding, no h/o bleed per patient, anemia likely secondary to chronic disease, baseline 9-10 iron studies from outpatient labwork today consistent with anemia of chronic disease ordered to receive 2u PRBC tonight NPO after midnight general surgery consulted for dialysis cath placement - to be done tomorrow pt states he takes ~12.5mg vistaril daily reports he was told he had bacteruria, unable to confirm at this time, afebrile, no leukocytosis, will repeat UA Code: Full Dispo: anticipate hospitalization >2 days Time Spent Managing Pts Care (In Minutes): 60
[2020-03-17] MEDS ORDERED: ACETAMINOPHEN 325 MG TABLET ONE (15:56)
[2020-03-17] MEDS ORDERED: DIPHENHYDRAMINE 50 MG/ML VIAL ONE (15:57)
[2020-03-17] MEDS ORDERED: NA CHLORIDE 0.9% 250 ML ONE (16:06)
[2020-03-17] MEDS ORDERED: hydrOXYzine HCL 25 MG TAB PO PRN (19:54)
[2020-03-17] MEDS ORDERED: POTASSIUM 25 MEQ EFFERV TAB PO ONE (20:34)
[2020-03-17] MEDS ORDERED: NA CHLORIDE 0.9% 1,000 ML IV PRN (20:38)
[2020-03-17] MEDS ORDERED: MANNITOL 25% 12.5 GM/50 ML VIAL IV PRN (20:38)
[2020-03-17] MEDS ORDERED: ALBUMIN HUMAN 25% 50 ML IV SCH (21:00)
[2020-03-17 21:04] LABS: Urine Blood 3+ (NEG); Urine Glucose NEGATIVE (NEG); Urine Protein 2+ (NEG); Urine Specific Gravity 1.015 (1.005-1.030)
[2020-03-17] MEDS ORDERED: CEFTRIAXONE/SWI 1gm 1 GM/10 ML SYR ONE (21:15)
[2020-03-17 21:20] LABS: Urine Bacteria 20-50 /HPF (NONE SEEN); Urine Mucus 1+ /HPF (NONE SEEN); Urine RBC 20-50 /HPF (NONE SEEN)
[2020-03-17] MEDS ORDERED: CALCIUM GLUCONATE 1 GM IVPB 1 GM/50 ML BAG IV ONE (21:43)
[2020-03-17] MEDS: SODIUM BICARB 325 MG TAB PO SCH ×2 (22:40→23:00)
[2020-03-17 23:43] LABS: Hematocrit 20.5 % (39.6-49.0)
[2020-03-18] MEDS: SODIUM BICARB 325 MG TAB PO SCH ×2 (00:08→01:10)
[2020-03-18] MEDS: SODIUM BICARB 325 MG TAB PO ONE ×2 (01:09→01:10)
[2020-03-18] MEDS ORDERED: NA CHLORIDE 0.9% 250 ML ONE (01:46)
[2020-03-18 01:55] LABS: Urine Appearance TURBID; Urine Bilirubin NEGATIVE (NEG); Urine Blood 3+ (NEG); Urine Color YELLOW; Urine Glucose NEGATIVE (NEG); Urine Protein 1+ (NEG); Urine Urobilinogen 0.2 mg/dL (0.2-1.0); Urine pH 5.5 (5.0-7.0)
[2020-03-18 02:37] LABS: Urine Bacteria >50 /HPF (NONE SEEN); Urine Mucus 1+ /HPF (NONE SEEN)
[2020-03-18 03:21] VITALS: BMI 17.6
[2020-03-18 06:49] LABS: Absolute Lymphocytes (CBC) 0.3 K/uL (0.7-4.9); Basophils % 0.2 % (0-1.3); Hematocrit 22.3 % (39.6-49.0); Lymphocytes % 5.4 % (15.3-44.8); MPV 10.4 fL (7.6-11.3); RBC Red Blood Cell Count 2.46 M/uL (4.33-5.43)
[2020-03-18 07:42] LABS: Albumin 2.6 g/dL (3.4-5.0); Bilirubin Total 0.4 mg/dL (0.2-1.0); Potassium 3.3 mmol/L (3.5-5.1); Protein, Total 5.9 g/dL (6.4-8.2); Uric Acid 7.5 mg/dL (3.5-7.2)
[2020-03-18] MEDS ORDERED: NA CHLORIDE 0.9% 500 ML ONE ×2 (08:10→14:11)
[2020-03-18 08:15] LABS: Phosphorus 10.5 mg/dL (2.5-4.9)
[2020-03-18] MEDS: HOME MED 1 EA UNK (Umeclidinium Brm/Vilanterol Tr [Anoro Ellipta 62.5-25 Mcg Inh] Blst.W.D IH SCH (08:46)
[2020-03-18] MEDS: CALCITROL 0.25 MCG CAP PO SCH (08:49)
[2020-03-18] MEDS: TAMSULOSIN 0.4 MG SR CAP PO SCH (08:49)
[2020-03-18] MEDS: VITAMIN D 5,000 UNIT CAP PO SCH (08:49)
[2020-03-18] MEDS: CEFTRIAXONE/SWI 1gm 1 GM/10 ML SYR IV SCH (08:49)
[2020-03-18] MEDS ORDERED: CEFTRIAXONE 1 GM/NS 50 ML 1 GM/50 ML BAG IV SCH (09:00)
[2020-03-18] MEDS ORDERED: EPOETIN ALFA-EPBX 10,000 UNIT/ML VIAL SQ SCH (09:00)
[2020-03-18 10:55] LABS: Blood Morphology Comment NOT SEEN (NOT SEEN); Platelet Estimate DECR; White Blood Cell Scan OK (OK)
[2020-03-18 13:56] LABS: Hematocrit 23.9 % (39.6-49.0)
[2020-03-18] MEDS ORDERED: LIDOCAINE 2% MPF 5 ML VIAL ONE (15:14)
[2020-03-18] MEDS ORDERED: propofoL 200 MG/20 ML VIAL IV ONE (15:14)
[2020-03-18] MEDS ORDERED: NS 0.9% VIAL 10 ML ONE (15:15)
[2020-03-18] MEDS ORDERED: NA CHLORIDE 0.9% 100 ML IV ONE (15:16)
[2020-03-18] MEDS ORDERED: HEPARIN 5000 UNIT/ML 1 ML VIAL ONE (15:16)
[2020-03-18] MEDS ORDERED: LIDOCAINE 1% MPF 30 ML VIAL ONE (15:16)
[2020-03-18] MEDS ORDERED: MIDAZOLAM HCL 2 MG/2 ML INJ ONE (15:21)
[2020-03-18] MEDS ORDERED: EPHEDRINE SULF 50 MG/ML VIAL ONE (15:43)
--- NOTE | 2020-03-18 15:57 | P.PN ---
Subjective Date of Service: 03/18/20 Primary Care Provider: Kunal Chief Complaint: Acute Renal Failure, Severe Anemia Subjective: Improving (feeling better today after receiving PRBCs, reports some slight throat/chest congestion this morning. more energy. denies SOB, no chest pain.) Review of Systems 10-point ROS is otherwise unremarkable Physical Examination - Vital Signs Temperature: 97.3 F Blood Pressure: 108/64 Pulse: 64 Respirations: 18 Pulse Ox (%): 97 - Physical Exam General: Alert, In no apparent distress, Oriented x3 Respiratory: Clear to auscultation bilaterally Cardiovascular: No edema, Regular rate/rhythm Gastrointestinal: Soft and benign, No tenderness Musculoskeletal: No tenderness Integumentary: No significant lesion Neurological: Normal speech, Normal affect Assessment & Plan Physician Review Additional Text: Acute Renal Failure, h/o CKD4 Metabolic acidosis Severe anemia, anemia of chronic disease BPH Pruritis nephrology consulted for HD, metabolic acidosis likely secondary to renal failure / CKD no evidence of bleeding, no h/o bleed per patient, anemia likely secondary to chronic disease, baseline 9-10 s/p 2u PRBC last night, Hgb: 6.8, given 1 uPRBC overnight and Hgb up to 7.5, discussed with surgery and would prefer hgb > 8.0. will give a 4th u PRBC NPO, general surgery consulted for dialysis cath placement - to be done today. possible HD later today pt states he takes ~12.5mg vistaril daily, continue UA in ED consistent with UTI, continue rocephin, f/u Ur Cx Code: Full Dispo: anticipate hospitalization >2 days Time Spent Managing Pts Care (In Minutes): 35
--- NOTE | 2020-03-18 15:58 | P.BOP ---
Preoperative diagnosis: ESRD, anemia Postoperative diagnosis: same Primary procedure: 1. Placement of hemosplit tunneled HD catheter Secondary procedure: 2. interpretation of fluoroscopy Other procedure(s): 3. Right neck ultrasound Estimated blood loss: <10cc Specimen: none Findings: as above, see dicta Anesthesia: General Complications: None Transferred to: Recovery Room Condition: Good
[2020-03-18] MEDS ORDERED: Phenylephrine HCl 10 MG/ML 1 ML VIAL ONE (16:03)
[2020-03-18] MEDS ORDERED: TRAMADOL 37.5mg/APAP 325mg PER TAB PO PRN (16:06)
--- NOTE | 2020-03-18 16:40 | RAD REPORT ---
EXAM DESCRIPTION: RAD - Fluoroscopy <1 Hour - 03/18/2020 4:24 pm FINDINGS: Six images were obtained during fluoroscopic assisted placement of a right-sided dialysis catheter. No suspicious or unexpected finding. Fluoro time was 0.3 minutes with a 2.52 mGy cumulative dose.
--- NOTE | 2020-03-18 16:44 | RAD REPORT ---
EXAM DESCRIPTION: RAD - Chest Single View - 03/18/2020 4:23 pm CLINICAL HISTORY: s/p dialysis cath placementpostprocedure chest film COMPARISON: March 17 TECHNIQUE: AP portable chest image was obtained 03/18/2020 4:23 pm . FINDINGS: Chronic interstitial pattern present accentuated by expiration technique. Skin fold artifa cts overlie the right-side of the chest. Cardiac silhouette is prominent but unchanged. Vasculature i s accentuated by expiration technique. Right-sided dialysis catheter is in place. No measurable pleur al effusion and no pneumothorax. No acute bony abnormality seen. No acute aortic findings suspected. IMPRESSION: Right jugular dialysis catheter in place. Catheter tips are in the mid SVC. No pneumothorax.
--- NOTE | 2020-03-18 18:57 | CON ---
Date of Consultation: 03/17/2020 Diagnoses: Acute renal failure, anemia. History Of Present Illness: This is a case of a 69-year-old patient, who comes with multiple medical problems during the process. The patient also found to have renal failure and hemodialysis catheter was requested by Dr. Bear, the turbine technician. Today, he is in ER, he is receiving blood transfusi on, trying to resolve some of his anemia. The patient denies any dysuria, hematuria, hematochezia, m carri. Denies any previous colonoscopy. He was advised the importance of them. Allergies: CODEINE, CIPRO. Medications: Flomax, Ellipta. Past Medical History: Include COPD, hypertension, BPH. Past Surgical History: Include bladder surgery for tumor in the bladder, done transurethral more carlos n 6 months ago. Social History: He does not smoke. He does not drink alcohol. Review of Systems: Ten points otherwise unremarkable. Physical Examination: General: The patient is awake and alert. Eyes: Pupils anicteric. Neck: Supple. Chest: Clear. Abdomen: Soft and depressible. No rebound. Extremities: Good capillary refill. Laboratory Data: Blood work shows a WBC count of 5.2, hemoglobin of 5, hematocrit of 15.2, platelets of 98. INR is 1.05, creatinine is 11.9, potassium 3.2. UA shows nitrite positive. Chest x-ray crystal ws COPD. Assessment: This is a 69-year-old patient with renal failure, tunnelled hemodialysis catheter reques t by Dr. Bear. The benefits, alternatives, and risks explained to the patient which include, but not limited to infection, bleeding, damage to adjacent structures, anesthesia complication, hemothora x, pneumothorax, DVTs, PE, pericarditis, SD, and even . He also understands this may not reliev e any symptoms. He might need more than one surgical intervention. He understands this is a tempora ry catheter. If he continues with dialysis, he has to find a vascular surgeon, who can get periphera l access for him. He understood. The patient will receive a blood transfusion to bring hemoglobin u p and then proceed with surgery. HM/MODL Voice ID: [id number] Report ID: [id number]
--- NOTE | 2020-03-18 19:39 | OP ---
Date of Procedure: 03/18/2020 Surgeon: Gen Torres MD Preoperative Diagnoses: End-stage renal disease, anemia. Postoperative Diagnoses: End-stage renal disease, anemia. Procedures: 1.Placement of a HemoSplit tunneled hemodialysis catheter. 2.Interpretation of fluoroscopy. 3.Right neck ultrasound. Anesthesia: General plus local. Estimated Blood Loss: Less than 10 mL. Complications: None. Indications: This is a case of a 69-year-old patient in need for hemodialysis. The patient fully ex plained the benefits, alternatives, and risks of a HemoSplit hemodialysis catheter, which include, bu t not limited to infection, bleeding, damage to adjacent structures, anesthesia complication, DVTs, P E, pericarditis, endocarditis, [place], and even . He also understands this may not relieve the symp toms. He might need more than one surgical intervention. He also understands this is a temporary ca theter. He has to look for a vascular surgeon who does prefer a catheter in the next few weeks if he continue to receive dialysis. He understood. Description Of Procedure: The patient was brought to the operating room and placed in supine positio n. Anesthesia was done without complication. A time-out was called. Right neck and chest were prep ped and draped in sterile fashion. Ultrasound of the right neck was done to localize the right inter nal jugular vein, and we noticed to be compressible and functional. At that moment, we had the patie nt try another position. An 18-gauge needle was placed in the right internal jugular vein at the fir st attempt. Guidewire was passed through. Needle was removed. We tunneled a HemoSplit catheter fro m the right upper chest through the neck incision. We placed dilators under fluoroscopy guidance thr ough the guidewire and the introducer sheath. The guidewire was removed. The catheter was placed th rough the introducer sheath and then subsequently was peeled off. The catheter looks in place. Exce llent backflow and inflow. Heparinized and then covered with sterile dressings after suture with 3-0 nylon. The patient tolerated the procedure well. The neck incision was closed with 3-0 chromic and Steri-Strips. The patient sent to recovery in stable condition. Sponge count and instrument counts correct. The patient will have a stat chest x-ray. MARTÍN/NIKIA Voice ID: [id number] Report ID: [id number]
--- NOTE | 2020-03-18 20:10 | RAD REPORT ---
EXAM DESCRIPTION: US - Renal Ultrasound-Complete - 03/18/2020 7:16 pm CLINICAL HISTORY: JAZZY. Hx of bladder mass. COMPARISON: Abdomen Pelvis W/Wo Contrast dated 03/08/2019 FINDINGS: The right kidney measures 11.8 x 4.3 x 5.1 cm. The left kidney measures 10.5 x 5.0 x 5.3 cm.. Cortical thickness is normal. There is significant bilateral cortical increased echogenicity. Mi ld fullness of the right renal pelvis and calices matches the 2019 study. No acute hydronephrosis on the right. No hydronephrosis of the left kidney and no solid mass lesions identified. No bladder wall thickening or mass seen in the partially filled bladder. Echogenic debris is seen ivana ating within the lumen. CT IMPRESSION: No hydronephrosis or suspicious renal mass. Increased renal parenchymal echogenicity consistent with medical renal disease.
--- NOTE | 2020-03-18 20:11 | RAD REPORT ---
EXAM DESCRIPTION: US - Urinary Bladder - 03/18/2020 7:16 pm CLINICAL HISTORY: JAZZY. Hx of bladder mass. COMPARISON: No comparisons FINDINGS: No bladder wall thickening or mass was identifiable. Significant amount of echogenic debri s seen moving within the lumen the bladder. Bladder volume was 127 milliliters. IMPRESSION: No bladder wall thickening or mass. Echogenic debris is seen within the lumen of the katie dder.
[2020-03-19 05:57] LABS: Hematocrit 25.4 % (39.6-49.0); MPV 10.2 fL (7.6-11.3); RBC Red Blood Cell Count 2.84 M/uL (4.33-5.43)
[2020-03-19 06:34] LABS: Albumin 2.4 g/dL (3.4-5.0); Phosphorus 5.3 mg/dL (2.5-4.9)
[2020-03-19 06:36] LABS: Potassium 2.7 mmol/L (3.5-5.1)
[2020-03-19] MEDS ORDERED: POTASSIUM CL SA 10 MEQ TAB PO ONE (06:47)
[2020-03-19] MEDS: CEFTRIAXONE/SWI 1gm 1 GM/10 ML SYR IV SCH (08:28)
[2020-03-19] MEDS: CALCITROL 0.25 MCG CAP PO SCH (08:29)
[2020-03-19] MEDS: TAMSULOSIN 0.4 MG SR CAP PO SCH (08:29)
[2020-03-19] MEDS: HOME MED 1 EA UNK (Umeclidinium Brm/Vilanterol Tr [Anoro Ellipta 62.5-25 Mcg Inh] Blst.W.D IH SCH (08:29)
[2020-03-19] MEDS: VITAMIN D 5,000 UNIT CAP PO SCH (08:29)
[2020-03-19] MEDS ORDERED: NACHLORIDE 0.45% 1,000 ML with POTASSIUM CL 20 MEQ IV SCH ×2 (09:00)
--- NOTE | 2020-03-19 09:00 | P.CNS ---
Date of Consult: 03/18/20 Reason for Consult: JAZZY/ CKD Requesting Physician: Tobi Silva Primary Care Provider: Kunal Chief Complaint: Acute Renal Failure, Severe Anemia History of Present Illness: 69yo M, PMH: CKD4, COPD, HTN, who was sent to ED by layout designer after abnormal lab values obtained. He was found to be severely anemic (Hgb:4.8) and significantly elevated creatinine. He has a history of CKD4. He states over the past year has been feeling progressively fatigued/tired. He denies any bleeding. He currently denies any chest pain, shortness of breath, abdominal pain, rash/lesions. He states he was also undergoing preoperative work up for urologic procedure and was told he had a UTI. He was prescribed antibiotics but has not picked them up yet. He is unsure of what antibiotic he has been prescribed. In the ED, his hemoglobin is noted to be 5.0, creatinine up to 11.9, hypokalemic. Patient is alert and oriented x3, feels fatigued. Emergency department contacted his layout designer who recommended the patient receive two units of blood tonight, undergo dialysis catheter insertion tomorrow by general surgery, and start hemodialysis. 13:07 This 69 yrs old Male presents to ER via Wheelchair with complaints of [facility] Abnormal Lab Results. 13:07 Patient sent to ED for evaluation after getting blood work results back from [facility] layout designer. Found to have hemoglobin of 4.8 which was drastically different from this past November. Patient is known stage 4 CKD patient . Severity of symptoms: At their worst the symptoms were moderate in the emergency department the symptoms are unchanged. The patient has not experienced similar symptoms in the past. The patient has been recently seen by a physician Allergies codeine Allergy (Verified 03/17/20 09:11) Hives ciprofloxacin [From Cipro] Adverse Reaction (Verified 03/17/20 09:11) Hives Home Medications: Tamsulosin [Flomax] 0.4 mg PO DAILY 03/08/19 Albuterol Sulfate [Albuterol Sulfate Hfa] 8.5 gm IH PRN 03/17/20 Umeclidinium Brm/Vilanterol Tr [Anoro Ellipta 62.5-25 Mcg INH] 1 each IH DAILY 03/17/20 - Past Medical/Surgical History Diabetic: No -: CKD4 -: COPD -: HTN -: BPH -: tumor removed from bladder - Social History Smoking Status: Unknown if ever smoked Alcohol use: No CD- Drugs: No Caffeine use: No Place of Residence: Home Review of Systems 10-point ROS is otherwise unremarkable General: Weakness, Malaise Respiratory: SOB with Excertion Neurological: Weakness Physical Examination Temp Pulse Resp BP Pulse Ox 97.7 F 114 H 20 108/59 L 94 03/19/20 08:00 03/19/20 08:00 03/19/20 08:00 03/19/20 08:00 03/19/20 08:00 General: In no apparent distress, Oriented x3, Cooperative HEENT: Atraumatic Neck: Supple Respiratory: Clear to auscultation bilaterally Cardiovascular: No edema, Regular rate/rhythm Gastrointestinal: Soft and benign, Non-distended Musculoskeletal: No clubbing, No contractures Integumentary: No rashes, No cyanosis Neurological: Normal speech Blood work reviewed in the chart. Imagings Data: EXAM DESCRIPTION: RAD - Chest Single View - 03/17/2020 1:51 pm CLINICAL HISTORY: pre op, fatigue, history of COPD COMPARISON: Two view chest March 08, 2019 TECHNIQUE: AP portable chest image was obtained 03/17/2020 1:51 pm . FINDINGS: Lungs are fibrotic as a baseline with flattened diaphragm and blunting of each costophrenic angle. No focal consolidation or mass. Interstitial pattern is increased slightly from the comparison study. No new mass or fullness of either hilum. Heart size and vasculature are increased slightly due to portable technique compared to prior PA technique. No measurable pleural effusion and no pneumothorax. No acute bony abnormality seen. No acute aortic findings suspected. IMPRESSION: Prominent COPD with no focal mass or consolidation. Interstitial pattern is increased over the baseline fibrosis. This is probably a mild interstitial edema or possibly interstitial infiltrate. Rapidly progressing fibrosis is unlikely. EXAM DESCRIPTION: US - Urinary Bladder - 03/18/2020 7:16 pm CLINICAL HISTORY: JAZZY. Hx of bladder mass. COMPARISON: No comparisons FINDINGS: No bladder wall thickening or mass was identifiable. Significant amount of echogenic debris seen moving within the lumen the bladder. Bladder volume was 127 milliliters. IMPRESSION: No bladder wall thickening or mass. Echogenic debris is seen within the lumen of the bladder. EXAM DESCRIPTION: US - Renal Ultrasound-Complete - 03/18/2020 7:16 pm CLINICAL HISTORY: JAZZY. Hx of bladder mass. COMPARISON: Abdomen Pelvis W/Wo Contrast dated 03/08/2019 FINDINGS: The right kidney measures 11.8 x 4.3 x 5.1 cm. The left kidney measures 10.5 x 5.0 x 5.3 cm.. Cortical thickness is normal. There is significant bilateral cortical increased echogenicity. Mild fullness of the right renal pelvis and calices matches the 2019 study. No acute hydronephrosis on the right. No hydronephrosis of the left kidney and no solid mass lesions identified. No bladder wall thickening or mass seen in the partially filled bladder. Echogenic debris is seen floating within the lumen. CT IMPRESSION: No hydronephrosis or suspicious renal mass. Increased renal parenchymal echogenicity consistent with medical renal disease. Conclusions/Impression: A/P: Continue the current POC and Medications other than the changes listed. AM Labs PRN. Recommend daily weight. Please see the orders for complete details. JAZZY with hematuria of unclear etiology. May be progressive disease vs an acute vasculitis syndrome. -Arrange for acute HD due to severe disease. He was seen and examined on HD. -Surgery consult for HD CVC placement. -JAZZY labs have been ordered and are pending. -Renal US ordered and reviewed. Hypokalemia -Replete potassium as needed Metabolic Acidosis -Give oral bicarb. -Arrange for acute HD. Progressive CKD IV in the setting of HTN and vascular disease likely ESRD at this time. -No NSAIDs -Start Nephrovite. HTN currently complicated by hypotension -Hold antihypertensives at this time. Moderate malnutrition -Encourage nutrition Anemia in CKD complicated by thrombocytopenia -Transfuse PRBCs due to severe anemia -Start Retacrit. -May need evaluation for possible underlying GI bleed MITCHELL/ Secondary HyperPTH with hypocalcemia and hyperPO4 -Start Vitamin D -Start Phoslo BPH with LUTS -Continue tamsulosin -Bladder US ordered and reviewed. Acute cystitis with pyuria and hematuria? -Continue Rocephin -Follow up urine culture -Repeat UA Case reviewed with the ER and Dr. Silva. Arrange for dialysis placement due to suspected ESRD.
--- NOTE | 2020-03-19 11:00 | PN ---
Date of Progress Note: 03/19/2020 Subjective: Status post hemodialysis catheter placement. Patient is doing well. No shortness of br eath. No chest pain. Objective: Catheter looks intact. No bleeding. The previous x-ray shows catheter in place with tip in the mid superior vena cava. Plan: Continue service by the primary doctor. Follow up with me when ready to remove the catheter. He was advised if he continues with dialysis, he needs to look for peripheral vascular disease docto r for placement of a more permanent access. MARTÍN/MODL Voice ID: [id number] Report ID: [id number]
--- NOTE | 2020-03-19 11:30 | RAD REPORT ---
EXAM DESCRIPTION: CT - Head Brain Wo Cont - 03/19/2020 10:42 am CLINICAL HISTORY: patient fall Trauma, fall, head injury COMPARISON: Multiplanar Reconstruction dated 03/08/2019; Abdomen Pelvis W/Wo Contrast dated 2018 TECHNIQUE: All CT scans are performed using dose optimization technique as appropriate and may inclu de automated exposure control or mA/KV adjustment according to patient size. FINDINGS: No intracranial hemorrhage, hydrocephalus or extra-axial fluid collection.Mild chronic shaka rovascular ischemia noted in the periventricular white matter.No areas of brain edema or evidence of midline shift. The paranasal sinuses and mastoids are clear. The calvarium is intact. IMPRESSION: No acute intracranial abnormality.
[2020-03-19] MEDS: CALCIUM ACETATE 667 MG TAB PO SCH ×2 (11:48→17:13)
--- NOTE | 2020-03-19 16:55 | P.PN ---
Subjective Date of Service: 03/19/20 Primary Care Provider: Kunal Chief Complaint: Acute Renal Failure, Severe Anemia Subjective: Improving (feeling better this morning, s/p HD yesterday. [place] slightly congested, was placed on 2 LNC) Review of Systems 10-point ROS is otherwise unremarkable Physical Examination - Vital Signs Temperature: 97 F Blood Pressure: 92/52 Pulse: 65 Respirations: 20 Pulse Ox (%): 97 - Physical Exam General: Alert, In no apparent distress, Oriented x3 Respiratory: Clear to auscultation bilaterally Cardiovascular: No edema, Regular rate/rhythm Gastrointestinal: Soft and benign, No tenderness Musculoskeletal: No tenderness Integumentary: No rashes Neurological: Normal speech, Normal affect Assessment & Plan Physician Review Additional Text: Acute Renal Failure, h/o CKD4 Metabolic acidosis Severe anemia, anemia of chronic disease Hypokalemia, hypocalcemia BPH Pruritis nephrology consulted for HD, metabolic acidosis likely secondary to renal failure / CKD - s/p HD on 03/18 anemia secondary to chronic disease, baseline 9-10 s/p 4u PRBC s/p dialysys cath placement on 03/17 UA in ED consistent with UTI, continue rocephin, f/u Ur Cx: GNR patient had fall today, had syncopal fall in bathroom, found to have + orthostat ics. IVF started Hypokalemia, hypocalcemia - replacing Code: Full Dispo: anticipate dc home in 24-48hrs Time Spent Managing Pts Care (In Minutes): 35
[2020-03-19 23:40] LABS: Magnesium 1.7 mg/dL (1.8-2.4)
[2020-03-20] MEDS ORDERED: MAGNESIUM SULFATE 1 gm IVPB 1 GM/100 ML BAG IV ONE (00:03)
[2020-03-20 02:36] LABS: Urine Protein/Creatinine Ratio 1.98 ratio (<0.15)
[2020-03-20 02:57] LABS: Urine Appearance TURBID; Urine Bilirubin NEGATIVE (NEG); Urine Blood 3+ (NEG); Urine Color YELLOW; Urine Glucose NEGATIVE (NEG); Urine Protein 1+ (NEG); Urine Urobilinogen 0.2 mg/dL (0.2-1.0); Urine pH 5.5 (5.0-7.0)
[2020-03-20 03:48] LABS: Urine Bacteria <20 /HPF (NONE SEEN)
[2020-03-20 04:20] LABS: Absolute Lymphocytes (CBC) 0.3 K/uL (0.7-4.9); Basophils % 0.2 % (0-1.3); Hematocrit 26.3 % (39.6-49.0); Lymphocytes % 4.1 % (15.3-44.8); MPV 10.3 fL (7.6-11.3); RBC Red Blood Cell Count 2.91 M/uL (4.33-5.43)
[2020-03-20 04:56] LABS: Albumin 2.3 g/dL (3.4-5.0); Bilirubin Total 0.4 mg/dL (0.2-1.0); Magnesium 1.7 mg/dL (1.8-2.4); Phosphorus 5.2 mg/dL (2.5-4.9); Protein, Total 5.6 g/dL (6.4-8.2); Uric Acid 4.7 mg/dL (3.5-7.2)
[2020-03-20 05:11] LABS: Potassium 2.9 mmol/L (3.5-5.1)
[2020-03-20] MEDS ORDERED: POTASSIUM CL SA 10 MEQ TAB PO ONE ×3 (05:59→07:41)
[2020-03-20] MEDS ORDERED: NACHLORIDE 0.45% 1,000 ML with POTASSIUM CL 40 MEQ IV SCH ×4 (06:00→08:00)
[2020-03-20] MEDS ORDERED: EPOETIN 4,000 UNIT/ML VIAL IV SCH (08:30)
[2020-03-20] MEDS: HOME MED 1 EA UNK (Umeclidinium Brm/Vilanterol Tr [Anoro Ellipta 62.5-25 Mcg Inh] Blst.W.D IH SCH (09:00)
[2020-03-20] MEDS ORDERED: Meropenem 1000 MG/VIAL IV SCH (09:00)
[2020-03-20] MEDS: CALCITROL 0.25 MCG CAP PO SCH (09:08)
[2020-03-20] MEDS: CALCIUM ACETATE 667 MG TAB PO SCH ×3 (09:10→16:39)
[2020-03-20] MEDS: VITAMIN D 5,000 UNIT CAP PO SCH (09:10)
[2020-03-20] MEDS: MULTIVITAMINS,THERAPEUT 1 TAB PO SCH (09:10)
[2020-03-20] MEDS: TAMSULOSIN 0.4 MG SR CAP PO SCH (09:10)
[2020-03-20] MEDS: Meropenem 500 MG in NA CHLORIDE 0.9% 100 ML IV SCH (09:57)
--- NOTE | 2020-03-20 11:30 | EKG ---
Test Date: 2020-03-17 Test Time: 13:42:22 [employer] Pastor: DOMINGA MEASUREMENT RESULTS: Intervals: Rate: 72 AR: 168 QRSD: 148 QT: 476 QTc: 521 [place]: P: 87 AR: 168 QRS: 101 T: 66 INTERPRETIVE STATEMENTS: Sinus rhythm with premature atrial complexes Right bundle branch block Abnormal ECG Compared to ECG 03/08/2019 12:00:49 Atrial premature complex(es) now present Sinus arrhythmia no longer present Electronically Signed On 03-20-20 11:27:28 [employer]ING [employer] by Clay Mojica
[2020-03-20] MEDS ORDERED: EPOETIN 4,000 UNIT/ML VIAL SQ SCH (17:00)
--- NOTE | 2020-03-20 17:29 | P.PN ---
Subjective Date of Service: 03/20/20 Primary Care Provider: Kunal Chief Complaint: Acute Renal Failure, Severe Anemia Subjective: Other (no acute events overnight. Pt reports feeling better today after receiving some IVF, still re) Review of Systems 10-point ROS is otherwise unremarkable Physical Examination - Vital Signs Temperature: 99.2 F Blood Pressure: 112/60 Pulse: 72 Respirations: 16 Pulse Ox (%): 90 - Physical Exam General: Alert, In no apparent distress, Oriented x3 Respiratory: Clear to auscultation bilaterally Cardiovascular: No edema, Regular rate/rhythm, Other (appears dry) Gastrointestinal: Soft and benign, No tenderness Musculoskeletal: No tenderness Integumentary: No rashes Neurological: Normal speech, Normal affect Assessment & Plan Physician Review Additional Text: Acute Renal Failure, h/o CKD4 Metabolic acidosis Severe anemia, anemia of chronic disease Hypokalemia, hypocalcemia BPH Pruritis nephrology consulted for HD, metabolic acidosis likely secondary to renal failure / CKD - improved anemia secondary to chronic disease, baseline 9-10 s/p 4u PRBC s/p dialysys cath placement on 03/17 UA in ED consistent with UTI, started on Rocephin, urine culture growing Pseudomonas, switched to meropenem given antibiotic resistance and allergy to ciprofloxacin Hypokalemia, hypocalcemia - replacing repeat BMP this afternoon Code: Full Dispo: anticipate dc home in 24-48hrs Time Spent Managing Pts Care (In Minutes): 35
[2020-03-20] MEDS: NEPRO SHAKE 237 ML CAN PO SCH (20:16)
--- NOTE | 2020-03-20 21:04 | P.PN ---
Date of Service: 03/20/20 Vital Signs Temp Pulse Resp BP Pulse Ox 99.2 F 72 16 112/60 90 L 03/20/20 17:28 03/20/20 17:28 03/20/20 17:28 03/20/20 17:28 03/20/20 17:28 Medications Calcitriol (Calcitrol 0.25 Mcg Cap) 1 mcg PO DAILY MONIQUE Stop: 04/19/20 09:01 Last Admin: 03/20/20 09:08 Dose: 1 mcg Documented by: Calcium Acetate (Ca Acetate 667 Mg Cap) 667 mg PO TIDWM MONIQUE Stop: 04/18/20 12:01 Last Admin: 03/20/20 16:39 Dose: 667 mg Documented by: Cholecalciferol (Vitamin D 5,000 Unit Cap) 5,000 unit PO DAILY MONIQUE Stop: 04/17/20 09:01 Last Admin: 03/20/20 09:10 Dose: 5,000 unit Documented by: Enteral Nutritional Formula (Nepro Shake 237 Ml Can) 237 ml PO BID MONIQUE Stop: 04/19/20 21:01 Last Admin: 03/20/20 20:16 Dose: 237 ml Documented by: Epoetin Alex (Epoetin 4,000 Unit/Ml Vial) 4,000 unit IV EVERY HD MONIQUE Stop: 04/19/20 08:31 Heparin Sodium (Porcine) (Heparin 1,000 Unit/Ml Vial) 6,000 unit IV EVERY HD PRN PRN Reason: AFTER EACH Stop: 04/16/20 20:39 Last Admin: 03/18/20 21:02 Dose: 6,000 unit Documented by: Home Med (Umeclidinium Brm/Vilanterol Tr [Anoro Ellipta 62.5-25 Mcg Inh]) 1 each IH DAILY MONIQUE Stop: 04/17/20 09:01 Last Admin: 03/20/20 09:00 Dose: Not Given Documented by: Hydroxyzine HCl (Hydroxyzine Hcl 25 Mg Tab) 12.5 mg PO Q12H PRN PRN Reason: ITCHING Stop: 04/16/20 19:55 Albumin Human (Albumin 25%) 50 mls @ 100 mls/hr IV EVERY HD MONIQUE Stop: 04/16/20 21:01 Meropenem 500 mg/ Sodium (Chloride) 100 mls @ 100 mls/hr IV DAILY MONIQUE Stop: 04/19/20 09:01 Last Admin: 03/20/20 09:57 Dose: 100 mls Documented by: Potassium Chloride 40 meq/ (Sodium Chloride) 1,020 mls @ 75 mls/hr IV .[id number] [facility] Stop: 03/20/20 21:35 Last Admin: 03/20/20 09:57 Dose: 1,020 mls Documented by: Lactobacillus Acidoph/Bulgaricus (Lactobacillus/Acidophilus Tab) 1 tab PO TID [facility] Stop: 04/19/20 21:01 Mannitol (Mannitol 25% 12.5 Gm/50 Ml Vial) 12.5 gm IV EVERY HD PRN PRN Reason: Titrate to SBP (MUST DEFINE) Stop: 04/16/20 20:39 Sodium Chloride (Flush Normal Saline 10 Ml) 10 ml IV BID [facility] Stop: 04/16/20 21:01 Last Admin: 03/20/20 20:16 Dose: 10 ml Documented by: Tamsulosin HCl (Tamsulosin 0.4 Mg Sr Cap) 0.4 mg PO DAILY [facility] Stop: 04/17/20 09:01 Last Admin: 03/20/20 09:10 Dose: 0.4 mg Documented by: Tramadol/Acetaminophen (Tramadol 37.5mg/Apap 325mg Per Tab) 1 tab PO Q6HP PRN PRN Reason: Pain scale 5-7 (Moderate) Stop: 04/17/20 16:07 Vitamin B Complex/Vit C/Folic Acid (Multivitamins,Therapeut 1 Tab) 1 tab PO DAILY [facility] Stop: 04/19/20 09:01 Last Admin: 03/20/20 09:10 Dose: 1 tab Documented by: Assessment/ Plan: Nephrology No acute cardiac or pulmonary compaints. No CP or SOB. +Urine output Reports persistent diarrhea. No acute events overnight. Vitals, medications, blood work and imaging reviewed in the chart. General: In no apparent distress, Oriented x3, Cooperative HEENT: Atraumatic Neck: Supple Respiratory: Clear to auscultation bilaterally Cardiovascular: No edema, Regular rate/rhythm Gastrointestinal: Soft and benign, Non-distended Musculoskeletal: No clubbing, No contractures Integumentary: No rashes, No cyanosis Neurological: Normal speech Blood work reviewed in the chart. Imagings Data: EXAM DESCRIPTION: RAD - Chest Single View - 03/17/2020 1:51 pm CLINICAL HISTORY: pre op, fatigue, history of COPD COMPARISON: Two view chest March 08, 2019 TECHNIQUE: AP portable chest image was obtained 03/17/2020 1:51 pm . FINDINGS: Lungs are fibrotic as a baseline with flattened diaphragm and blunting of each costophrenic angle. No focal consolidation or mass. Interstitial pattern is increased slightly from the comparison study. No new mass or fullness of either hilum. Heart size and vasculature are increased slightly due to portable technique compared to prior PA technique. No measurable pleural effusion and no pneumothorax. No acute bony abnormality seen. No acute aortic findings suspected. IMPRESSION: Prominent COPD with no focal mass or consolidation. Interstitial pattern is increased over the baseline fibrosis. This is probably a mild interstitial edema or possibly interstitial infiltrate. Rapidly progressing fibrosis is unlikely. EXAM DESCRIPTION: US - Urinary Bladder - 03/18/2020 7:16 pm CLINICAL HISTORY: JAZZY. Hx of bladder mass. COMPARISON: No comparisons FINDINGS: No bladder wall thickening or mass was identifiable. Significant amount of echogenic debris seen moving within the lumen the bladder. Bladder volume was 127 milliliters. IMPRESSION: No bladder wall thickening or mass. Echogenic debris is seen within the lumen of the bladder. EXAM DESCRIPTION: US - Renal Ultrasound-Complete - 03/18/2020 7:16 pm CLINICAL HISTORY: JAZZY. Hx of bladder mass. COMPARISON: Abdomen Pelvis W/Wo Contrast dated 03/08/2019 FINDINGS: The right kidney measures 11.8 x 4.3 x 5.1 cm. The left kidney measures 10.5 x 5.0 x 5.3 cm.. Cortical thickness is normal. There is significant bilateral cortical increased echogenicity. Mild fullness of the right renal pelvis and calices matches the 2019 study. No acute hydronephrosis on the right. No hydronephrosis of the left kidney and no solid mass lesions identified. No bladder wall thickening or mass seen in the partially filled bladder. Echogenic debris is seen floating within the lumen. CT IMPRESSION: No hydronephrosis or suspicious renal mass. Increased renal parenchymal echogenicity consistent with medical renal disease. Conclusions/Impression: A/P: Continue the current POC and Medications other than the changes listed. AM Labs PRN. Recommend daily weight. Please see the orders for complete details. JAZZY with hematuria of unclear etiology. May be progressive disease vs an acute vasculitis syndrome. -Acute HD as ordered. -JAZZY labs have been ordered and are pending. Hypokalemia -Replete potassium. Metabolic Acidosis, resolved. Progressive CKD IV in the setting of HTN and vascular disease likely ESRD at this time. -No NSAIDs -Start Nephrovite. HTN currently complicated by hypotension -Hold antihypertensives at this time. Moderate malnutrition -Encourage nutrition Anemia in CKD complicated by thrombocytopenia -Transfuse PRBCs due to severe anemia -Continue Retacrit. -May need evaluation for possible underlying GI bleed MITCHELL/ Secondary HyperPTH with hypocalcemia and hyperPO4 -Continue Vitamin D and Phoslo. BPH with LUTS -Continue tamsulosin Acute cystitis with pyuria and hematuria? -Continue Rocephin -Follow up urine culture -Start Probiotic for persistent diarrhea. Arrange for dialysis placement due to suspected ESRD.
[2020-03-20] MEDS: LACTOBACILLUS/ACIDOPHILUS TAB PO SCH (22:02)
[2020-03-21 04:44] LABS: Hematocrit 25.8 % (39.6-49.0); MPV 9.9 fL (7.6-11.3); RBC Red Blood Cell Count 2.82 M/uL (4.33-5.43)
[2020-03-21 05:05] LABS: Magnesium 1.8 mg/dL (1.8-2.4); Phosphorus 3.6 mg/dL (2.5-4.9); Potassium 3.4 mmol/L (3.5-5.1)
[2020-03-21] MEDS: HOME MED 1 EA UNK (Umeclidinium Brm/Vilanterol Tr [Anoro Ellipta 62.5-25 Mcg Inh] Blst.W.D IH SCH (09:00)
[2020-03-21] MEDS: Meropenem 500 MG in NA CHLORIDE 0.9% 100 ML IV SCH (09:35)
[2020-03-21] MEDS: VITAMIN D 5,000 UNIT CAP PO SCH (09:36)
[2020-03-21] MEDS: LACTOBACILLUS/ACIDOPHILUS TAB PO SCH ×3 (09:36→20:39)
[2020-03-21] MEDS: TAMSULOSIN 0.4 MG SR CAP PO SCH (09:36)
[2020-03-21] MEDS: CALCIUM ACETATE 667 MG TAB PO SCH ×3 (09:36→16:05)
[2020-03-21] MEDS: CALCITROL 0.25 MCG CAP PO SCH (09:36)
[2020-03-21] MEDS: MULTIVITAMINS,THERAPEUT 1 TAB PO SCH (09:36)
[2020-03-21] MEDS: NEPRO SHAKE 237 ML CAN PO SCH ×2 (09:37→20:41)
--- NOTE | 2020-03-21 13:52 | P.PN ---
Subjective Date of Service: 03/21/20 Primary Care Provider: Kunal Chief Complaint: Acute Renal Failure, Severe Anemia Patient has no new complaint. He has been tolerating dialysis. Physical Examination - Vital Signs Temperature: 97.7 F Blood Pressure: 100/59 Pulse: 68 Respirations: 16 Pulse Ox (%): 97 - Physical Exam General: Alert, In no apparent distress, Oriented x3 HEENT: Mucous membr. moist/pink Neck: Supple, JVD not distended Respiratory: Clear to auscultation bilaterally, Normal air movement Cardiovascular: No edema, Regular rate/rhythm, Normal S1 S2 Gastrointestinal: Normal bowel sounds, Soft and benign, Non-distended, No tenderness Musculoskeletal: No swelling Integumentary: No rashes Neurological: Normal speech, Normal strength at 5/5 x4 extr Assessment And Plan Physician Review Additional Text: Acute Renal Failure, h/o CKD4 Metabolic acidosis Severe anemia, anemia of chronic disease Hypokalemia, hypocalcemia BPH Pruritis Hemodialysis per nephrology anemia secondary to chronic disease, baseline 9-10 s/p 4u PRBC s/p dialysys cath placement on 03/17 UA in ED consistent with UTI, started on Rocephin, urine culture growing Pseudomonas. switched to meropenem given antibiotic resistance and allergy to ciprofloxacin. Continue meropenem Hypokalemia, hypocalcemia - replacement per footwear factory worker assisting with arrangement for outpatient dialysis. Hepatitis profile is pending. Code: Full
[2020-03-21 18:30] LABS: Magnesium 1.8 mg/dL (1.8-2.4)
--- NOTE | 2020-03-21 21:57 | P.PN ---
Date of Service: 03/21/20 Vital Signs Temp Pulse Resp BP Pulse Ox 97.5 F 71 16 114/67 97 03/21/20 16:00 03/21/20 16:00 03/21/20 16:00 03/21/20 16:00 03/21/20 16:00 Medications Calcitriol (Calcitrol 0.25 Mcg Cap) 1 mcg PO DAILY MONIQUE Stop: 04/19/20 09:01 Last Admin: 03/21/20 09:36 Dose: 1 mcg Documented by: Calcium Acetate (Ca Acetate 667 Mg Cap) 667 mg PO TIDWM MONIQUE Stop: 04/18/20 12:01 Last Admin: 03/21/20 16:05 Dose: 667 mg Documented by: Cholecalciferol (Vitamin D 5,000 Unit Cap) 5,000 unit PO DAILY MONIQUE Stop: 04/17/20 09:01 Last Admin: 03/21/20 09:36 Dose: 5,000 unit Documented by: Enteral Nutritional Formula (Nepro Shake 237 Ml Can) 237 ml PO BID MONIQUE Stop: 04/19/20 21:01 Last Admin: 03/21/20 20:41 Dose: 237 ml Documented by: Epoetin Alex (Epoetin 4,000 Unit/Ml Vial) 4,000 unit IV EVERY HD MONIQUE Stop: 04/19/20 08:31 Heparin Sodium (Porcine) (Heparin 1,000 Unit/Ml Vial) 6,000 unit IV EVERY HD PRN PRN Reason: AFTER EACH Stop: 04/16/20 20:39 Last Admin: 03/18/20 21:02 Dose: 6,000 unit Documented by: Home Med (Umeclidinium Brm/Vilanterol Tr [Anoro Ellipta 62.5-25 Mcg Inh]) 1 each IH DAILY MONIQUE Stop: 04/17/20 09:01 Last Admin: 03/21/20 09:00 Dose: Not Given Documented by: Hydroxyzine HCl (Hydroxyzine Hcl 25 Mg Tab) 12.5 mg PO Q12H PRN PRN Reason: ITCHING Stop: 04/16/20 19:55 Albumin Human (Albumin 25%) 50 mls @ 100 mls/hr IV EVERY HD MONIQUE Stop: 04/16/20 21:01 Meropenem 500 mg/ Sodium (Chloride) 100 mls @ 100 mls/hr IV DAILY MONIQUE Stop: 04/19/20 09:01 Last Admin: 03/21/20 09:35 Dose: 100 mls Documented by: Lactobacillus Acidoph/Bulgaricus (Lactobacillus/Acidophilus Tab) 1 tab PO TID MONIQUE Stop: 04/19/20 21:01 Last Admin: 03/21/20 20:39 Dose: 1 tab Documented by: Mannitol (Mannitol 25% 12.5 Gm/50 Ml Vial) 12.5 gm IV EVERY HD PRN PRN Reason: Titrate to SBP (MUST DEFINE) Stop: 04/16/20 20:39 Sodium Chloride (Flush Normal Saline 10 Ml) 10 ml IV BID MONIQUE Stop: 04/16/20 21:01 Last Admin: 03/21/20 20:39 Dose: 10 ml Documented by: Tamsulosin HCl (Tamsulosin 0.4 Mg Sr Cap) 0.4 mg PO DAILY [facility] Stop: 04/17/20 09:01 Last Admin: 03/21/20 09:36 Dose: 0.4 mg Documented by: Tramadol/Acetaminophen (Tramadol 37.5mg/Apap 325mg Per Tab) 1 tab PO Q6HP PRN PRN Reason: Pain scale 5-7 (Moderate) Stop: 04/17/20 16:07 Vitamin B Complex/Vit C/Folic Acid (Multivitamins,Therapeut 1 Tab) 1 tab PO DAILY [facility] Stop: 04/19/20 09:01 Last Admin: 03/21/20 09:36 Dose: 1 tab Documented by: Assessment/ Plan: Nephrology Feeling better today No acute cardiac or pulmonary compaints. No CP or SOB. +Urine output Reports dirrhea this morning No acute events overnight. Vitals, medications, blood work and imaging reviewed in the chart. General: In no apparent distress, Oriented x3, Cooperative HEENT: Atraumatic Neck: Supple Respiratory: Clear to auscultation bilaterally Cardiovascular: No edema, Regular rate/rhythm Gastrointestinal: Soft and benign, Non-distended Musculoskeletal: No clubbing, No contractures Integumentary: No rashes, No cyanosis Neurological: Normal speech Blood work reviewed in the chart. Imagings Data: EXAM DESCRIPTION: RAD - Chest Single View - 03/17/2020 1:51 pm CLINICAL HISTORY: pre op, fatigue, history of COPD COMPARISON: Two view chest March 08, 2019 TECHNIQUE: AP portable chest image was obtained 03/17/2020 1:51 pm . FINDINGS: Lungs are fibrotic as a baseline with flattened diaphragm and blunting of each costophrenic angle. No focal consolidation or mass. Interstitial pattern is increased slightly from the comparison study. No new mass or fullness of either hilum. Heart size and vasculature are increased slightly due to portable technique compared to prior PA technique. No measurable pleural effusion and no pneumothorax. No acute bony abnormality seen. No acute aortic findings suspected. IMPRESSION: Prominent COPD with no focal mass or consolidation. Interstitial pattern is increased over the baseline fibrosis. This is probably a mild interstitial edema or possibly interstitial infiltrate. Rapidly progressing fibrosis is unlikely. EXAM DESCRIPTION: US - Urinary Bladder - 03/18/2020 7:16 pm CLINICAL HISTORY: JAZZY. Hx of bladder mass. COMPARISON: No comparisons FINDINGS: No bladder wall thickening or mass was identifiable. Significant amount of echogenic debris seen moving within the lumen the bladder. Bladder volume was 127 milliliters. IMPRESSION: No bladder wall thickening or mass. Echogenic debris is seen within the lumen of the bladder. EXAM DESCRIPTION: US - Renal Ultrasound-Complete - 03/18/2020 7:16 pm CLINICAL HISTORY: JAZZY. Hx of bladder mass. COMPARISON: Abdomen Pelvis W/Wo Contrast dated 03/08/2019 FINDINGS: The right kidney measures 11.8 x 4.3 x 5.1 cm. The left kidney measures 10.5 x 5.0 x 5.3 cm.. Cortical thickness is normal. There is significant bilateral cortical increased echogenicity. Mild fullness of the right renal pelvis and calices matches the 2019 study. No acute hydronephrosis on the right. No hydronephrosis of the left kidney and no solid mass lesions identified. No bladder wall thickening or mass seen in the partially filled bladder. Echogenic debris is seen floating within the lumen. CT IMPRESSION: No hydronephrosis or suspicious renal mass. Increased renal parenchymal echogenicity consistent with medical renal disease. Conclusions/Impression: A/P: Continue the current POC and Medications other than the changes listed. AM Labs PRN. Recommend daily weight. Please see the orders for complete details. JAZZY with hematuria of unclear etiology. May be progressive disease vs an acute vasculitis syndrome. Low complement. -Acute HD as ordered. -JAZZY labs have been ordered and are pending. Hypokalemia -Replete potassium. Metabolic Acidosis may be due to persistent diarrhea, worse -Consider oral bicarb Progressive CKD IV in the setting of HTN and vascular disease likely ESRD at this time. -No NSAIDs HTN currently complicated by hypotension -Hold antihypertensives at this time. Moderate malnutrition -Encourage nutrition -Continue probiotic Anemia in CKD complicated by thrombocytopenia -Transfuse PRBCs due to severe anemia -Continue Retacrit. -May need evaluation for possible underlying GI bleed MITCHELL/ Secondary HyperPTH with hypocalcemia and hyperPO4 -Continue Vitamin D and Phoslo. BPH with LUTS -Continue tamsulosin Acute PSA cystitis with pyuria and hematuria? -Continue Meropenem Arrange for dialysis placement due to suspected ESRD.
[2020-03-22 04:51] LABS: Absolute Lymphocytes (CBC) 0.7 K/uL (0.7-4.9); Basophils % 0.5 % (0-1.3); Hematocrit 24.5 % (39.6-49.0); Lymphocytes % 11.8 % (15.3-44.8); RBC Red Blood Cell Count 2.66 M/uL (4.33-5.43)
[2020-03-22 04:55] LABS: Albumin 2.1 g/dL (3.4-5.0); Bilirubin Total 0.3 mg/dL (0.2-1.0); Phosphorus 4.2 mg/dL (2.5-4.9); Potassium 3.1 mmol/L (3.5-5.1); Protein, Total 5.5 g/dL (6.4-8.2)
[2020-03-22] MEDS: HOME MED 1 EA UNK (Umeclidinium Brm/Vilanterol Tr [Anoro Ellipta 62.5-25 Mcg Inh] Blst.W.D IH SCH (09:00)
[2020-03-22] MEDS: CALCIUM ACETATE 667 MG TAB PO SCH ×3 (09:25→16:49)
[2020-03-22] MEDS: VITAMIN D 5,000 UNIT CAP PO SCH (09:25)
[2020-03-22] MEDS: Meropenem 500 MG in NA CHLORIDE 0.9% 100 ML IV SCH (09:25)
[2020-03-22] MEDS: MULTIVITAMINS,THERAPEUT 1 TAB PO SCH (09:26)
[2020-03-22] MEDS: CALCITROL 0.25 MCG CAP PO SCH (09:26)
[2020-03-22] MEDS: LACTOBACILLUS/ACIDOPHILUS TAB PO SCH ×3 (09:26→20:20)
[2020-03-22] MEDS: NEPRO SHAKE 237 ML CAN PO SCH ×2 (09:27→21:00)
[2020-03-22] MEDS: TAMSULOSIN 0.4 MG SR CAP PO SCH (09:30)
[2020-03-22 11:28] LABS: C.diff Antigen/Toxin Ag pos : Tox neg (NEG : NEG)
--- NOTE | 2020-03-22 13:42 | P.PN ---
Subjective Date of Service: 03/22/20 Primary Care Provider: Kunal Chief Complaint: Acute Renal Failure, Severe Anemia Patient has no new complaint. He has been tolerating dialysis. He tested positive for C. diff. Physical Examination - Vital Signs Temperature: 97.7 F Blood Pressure: 102/54 Pulse: 74 Respirations: 18 Pulse Ox (%): 96 - Physical Exam General: Alert, In no apparent distress, Oriented x3 Respiratory: Clear to auscultation bilaterally, Normal air movement Cardiovascular: No edema, Regular rate/rhythm, Normal S1 S2 Gastrointestinal: Soft and benign, Non-distended, No tenderness Musculoskeletal: No swelling Integumentary: No rashes Neurological: Normal strength at 5/5 x4 extr Assessment And Plan Physician Review Additional Text: Acute Renal Failure, h/o CKD4 Metabolic acidosis Severe anemia, anemia of chronic disease Hypokalemia, hypocalcemia BPH Pruritis. C diff. Hemodialysis per nephrology anemia secondary to chronic disease, baseline 9-10 s/p 4u PRBC. Hemoglobin is relatively stable. s/p dialysys cath placement on 03/17 UA in ED consistent with UTI, started on Rocephin, urine culture growing Pseudomonas. switched to meropenem given antibiotic resistance and allergy to ciprofloxacin. On meropenem. Patient now testing positive for C. diff. Change meropenem to IV cefepime. Add oral vancomycin. Hypokalemia, hypocalcemia - replacement per soda worker assisting with arrangement for outpatient dialysis. Hepatitis profile is pending. Code: Full
[2020-03-22] MEDS: VANCOMYCIN ORAL SOLN 250 MG/5 ML OSYR PO SCH (17:00)
[2020-03-22] MEDS ORDERED: CEFEPIME/SWI 1gm 10 ML IV SCH (18:00)
[2020-03-22] MEDS ORDERED: POTASSIUM CL SA 10 MEQ TAB PO ONE (20:58)
[2020-03-22] MEDS ORDERED: CEFEPIME 1 GM/VIAL IV SCH (21:00)
[2020-03-23] MEDS: VANCOMYCIN ORAL SOLN 250 MG/5 ML OSYR PO SCH ×3 (00:18→11:24)
[2020-03-23] MEDS: NEPRO SHAKE 237 ML CAN PO SCH ×2 (00:31→09:45)
[2020-03-23 03:31] LABS: HBsAG Nonreactive (Nonreactive)
[2020-03-23 04:30] LABS: Absolute Lymphocytes (CBC) 0.6 K/uL (0.7-4.9); Basophils % 0.6 % (0-1.3); Hematocrit 24.5 % (39.6-49.0); Lymphocytes % 11.3 % (15.3-44.8); MPV 9.3 fL (7.6-11.3); RBC Red Blood Cell Count 2.64 M/uL (4.33-5.43)
[2020-03-23 05:06] LABS: Potassium 3.2 mmol/L (3.5-5.1)
[2020-03-23] MEDS: HOME MED 1 EA UNK (Umeclidinium Brm/Vilanterol Tr [Anoro Ellipta 62.5-25 Mcg Inh] Blst.W.D IH SCH (09:00)
[2020-03-23] MEDS: TAMSULOSIN 0.4 MG SR CAP PO SCH (09:45)
[2020-03-23] MEDS: CALCIUM ACETATE 667 MG TAB PO SCH ×3 (09:45→16:46)
[2020-03-23] MEDS: CALCITROL 0.25 MCG CAP PO SCH (09:45)
[2020-03-23] MEDS: MULTIVITAMINS,THERAPEUT 1 TAB PO SCH (09:45)
[2020-03-23] MEDS: LACTOBACILLUS/ACIDOPHILUS TAB PO SCH ×2 (09:45→14:00)
[2020-03-23] MEDS: VITAMIN D 5,000 UNIT CAP PO SCH (09:45)
[2020-03-23 12:32] VITALS: O2SAT 97
--- NOTE | 2020-03-23 14:43 | P.DS ---
Admission Date: 03/17/20 Discharge Date: 03/23/20 Primary Care Provider: Kunal Disposition: ROUTINE DISCHARGE Discharge Condition: FAIR Reason for Admission: Acute Renal Failure, Severe Anemia - Problems (1) End-stage renal disease on hemodialysis Current Visit: Yes Status: Acute (2) C. difficile colitis Current Visit: Yes Status: Acute (3) Pseudomonas urinary tract infection Current Visit: Yes Status: Acute (4) Pruritus Current Visit: Yes Status: Acute (5) BPH (benign prostatic hyperplasia) Current Visit: Yes Status: Acute (6) Anemia in chronic kidney disease Current Visit: Yes Status: Acute Brief History of Present Illness: 69-year-old gentleman with a history of chronic kidney disease stage 4 was directed to the emergency department due to low hemoglobin. Patient reports fatigue. He had undergone a urologic procedure prior and was told as a UTI but failed to fill his antibiotics. His hemoglobin in the emergency department was 5. His serum creatinine was very elevated. 2 units of PRBC transfusion was initiated. Patient admitted for further management. Hospital Course: Patient admitted to the medical floor and given a total of 3 units PRBC transfusion. He was seen in consultation by nephrology and general surgeon. General surgeon placed a dialysis catheter. Patient underwent sessions of hemodialysis. He is not diagnosed with end-stage renal disease and he is needing long-term routine hemodialysis. His urine culture grew Pseudomonas sensitive to fluoroquinolones but given patient's significant allergy to ciprofloxacin, the UTI was treated with IV meropenem. He received about 4 days of the antibiotics. He developed diarrhea and subsequently tested positive for C. diff. He is started on oral vancomycin for the C. diff. He was also started on erythropoietin for the anemia of chronic kidney disease. Overall patient dialysis seat has been arranged for him. His diarrhea has significantly improved. Patient is deemed clinically stable for discharge. His blood pressure has been soft during the hospital stay and may need an oral vasopressor with dialysis. Vital Signs/Physical Exam: Temp Pulse Resp BP Pulse Ox 98.3 F 69 18 101/61 95 03/23/20 08:00 03/23/20 08:00 03/23/20 08:00 03/23/20 08:00 03/23/20 08:00 General: Alert, In no apparent distress, Oriented x3 HEENT: Mucous membr. moist/pink Neck: Supple Respiratory: Clear to auscultation bilaterally, Normal air movement Cardiovascular: No edema, Regular rate/rhythm, Normal S1 S2 Gastrointestinal: Normal bowel sounds, Soft and benign, Non-distended, No te nderness Integumentary: No rashes Neurological: Normal speech, Normal strength at 5/5 x4 extr Laboratory Data at Discharge: WBC 5.2 K/uL (4.3-10.9) 03/23/20 04:03 Hgb 7.9 g/dL (13.6-17.9) L* 03/23/20 04:03 Hct 24.5 % (39.6-49.0) L 03/23/20 04:03 Plt Count 93 K/uL (152-406) L 03/23/20 04:03 PT 12.4 SECONDS (9.5-12.5) 03/17/20 13:33 INR 1.05 03/17/20 13:33 APTT 32.5 SECONDS (24.3-36.9) 03/17/20 13:33 Sodium 141 mmol/L (136-145) 03/23/20 04:03 Potassium 3.2 mmol/L (3.5-5.1) L 03/23/20 04:03 BUN 71 mg/dL (7-18) H 03/23/20 04:03 Creatinine 5.92 mg/dL (0.55-1.3) H* 03/23/20 04:03 Glucose 87 mg/dL (74-106) 03/23/20 04:03 Uric Acid 4.7 mg/dL (3.5-7.2) D 03/20/20 04:05 Phosphorus 4.2 mg/dL (2.5-4.9) 03/22/20 03:37 Magnesium 1.8 mg/dL (1.8-2.4) 03/21/20 17:55 Total Bilirubin 0.3 mg/dL (0.2-1.0) 03/22/20 03:37 AST 22 U/L (15-37) 03/22/20 03:37 ALT 18 U/L (12-78) 03/22/20 03:37 Alkaline Phosphatase 77 U/L (45-117) 03/22/20 03:37 Home Medications: Tamsulosin [Flomax*] 0.4 mg PO DAILY 03/08/19 Albuterol Sulfate [Albuterol Sulfate Hfa] 8.5 gm IH PRN 03/17/20 Umeclidinium Brm/Vilanterol Tr [Anoro Ellipta 62.5-25 Mcg INH] 1 each IH DAILY 03/17/20 Calcitrol [Rocaltrol*] 1 mcg PO DAILY #30 cap 03/23/20 Calcium Acetate [Phoslo*] 667 mg PO TIDWM #90 cap 03/23/20 Cholecalciferol (Vitamin D3) [Vitamin D 5,000 IU Cap*] 5,000 unit PO DAILY #30 cap 03/23/20 Epoetin [Retacrit] 4,000 unit IV EVERY HD vial 03/23/20 Mannitol 25% [Mannitol*] 12.5 gm IV EVERY HD PRN vial 03/23/20 Nepro Shake [Nepro*] 237 ml PO BID #60 can 03/23/20 Vancomycin Oral Soln [Vancocin HCl*] 5 ml PO Q6HR #280 ml 03/23/20 hydrOXYzine HCL [Atarax*] 12.5 mg PO Q12H PRN #60 tab 03/23/20 New Medications: Vancomycin Oral Soln [Vancocin HCl*] 5 ml PO Q6HR #280 ml hydrOXYzine HCL [Atarax*] 12.5 mg PO Q12H PRN #60 tab PRN Reason: Itching Nepro Shake [Nepro*] 237 ml PO BID #60 can Calcium Acetate [Phoslo*] 667 mg PO TIDWM #90 cap Calcitrol [Rocaltrol*] 1 mcg PO DAILY #30 cap Cholecalciferol (Vitamin D3) [Vitamin D 5,000 IU Cap*] 5,000 unit PO DAILY #30 cap Followup: Michael Bear DO [ACTIVE - CAN ADMIT] - 1-2 Weeks Unknown,U [Primary Care Provider] - Time spent managing pt's care (in minutes): 40
[2020-03-23 18:06] VITALS: BP 102/58; TEMP 97.5
--- NOTE | 2020-03-23 21:02 | P.PN ---
Date of Service: 03/23/20 Vital Signs Temp Pulse Resp BP Pulse Ox 97.5 F 71 18 102/58 L 97 03/23/20 16:00 03/23/20 16:00 03/23/20 16:00 03/23/20 16:00 03/23/20 16:00 Assessment/ Plan: Nephrology Feeling better today and ready to go home. No cardiac or pulmonary complaints. No acute events overnight. Vitals, medications, blood work and imaging reviewed in the chart. General: In no apparent distress, Oriented x3, Cooperative HEENT: Atraumatic Neck: Supple Respiratory: Clear to auscultation bilaterally Cardiovascular: No edema, Regular rate/rhythm Gastrointestinal: Soft and benign, Non-distended Musculoskeletal: No clubbing, No contractures Integumentary: No rashes, No cyanosis Neurological: Normal speech Blood work reviewed in the chart. Imagings Data: EXAM DESCRIPTION: RAD - Chest Single View - 03/17/2020 1:51 pm CLINICAL HISTORY: pre op, fatigue, history of COPD COMPARISON: Two view chest March 08, 2019 TECHNIQUE: AP portable chest image was obtained 03/17/2020 1:51 pm . FINDINGS: Lungs are fibrotic as a baseline with flattened diaphragm and blunting of each costophrenic angle. No focal consolidation or mass. Interstitial pattern is increased slightly from the comparison study. No new mass or fullness of either hilum. Heart size and vasculature are increased slightly due to portable technique compared to prior PA technique. No measurable pleural effusion and no pneumothorax. No acute bony abnormality seen. No acute aortic findings suspected. IMPRESSION: Prominent COPD with no focal mass or consolidation. Interstitial pattern is increased over the baseline fibrosis. This is probably a mild interstitial edema or possibly interstitial infiltrate. Rapidly progressing fibrosis is unlikely. EXAM DESCRIPTION: US - Urinary Bladder - 03/18/2020 7:16 pm CLINICAL HISTORY: JAZZY. Hx of bladder mass. COMPARISON: No comparisons FINDINGS: No bladder wall thickening or mass was identifiable. Significant amount of echogenic debris seen moving within the lumen the bladder. Bladder volume was 127 milliliters. IMPRESSION: No bladder wall thickening or mass. Echogenic debris is seen within the lumen of the bladder. EXAM DESCRIPTION: US - Renal Ultrasound-Complete - 03/18/2020 7:16 pm CLINICAL HISTORY: JAZZY. Hx of bladder mass. COMPARISON: Abdomen Pelvis W/Wo Contrast dated 03/08/2019 FINDINGS: The right kidney measures 11.8 x 4.3 x 5.1 cm. The left kidney measures 10.5 x 5.0 x 5.3 cm.. Cortical thickness is normal. There is significant bilateral cortical increased echogenicity. Mild fullness of the right renal pelvis and calices matches the 2019 study. No acute hydronephrosis on the right. No hydronephrosis of the left kidney and no solid mass lesions identified. No bladder wall thickening or mass seen in the partially filled bladder. Echogenic debris is seen floating within the lumen. CT IMPRESSION: No hydronephrosis or suspicious renal mass. Increased renal parenchymal echogenicity consistent with medical renal disease. Conclusions/Impression: A/P: Continue the current POC and Medications other than the changes listed. AM Labs PRN. Recommend daily weight. Please see the orders for complete details. JAZZY with hematuria of unclear etiology. May be progressive disease vs an acute vasculitis syndrome. Low complement. -Acute HD as ordered. -JAZZY labs have been ordered and are pending. Hypokalemia -Replete potassium. Metabolic Acidosis may be due to persistent diarrhea, worse -Consider oral bicarb Progressive CKD IV in the setting of HTN and vascular disease likely ESRD at this time. -No NSAIDs HTN currently complicated by hypotension -Hold antihypertensives at this time. Moderate malnutrition -Encourage nutrition -Continue probiotic Anemia in CKD complicated by thrombocytopenia -Transfuse PRBCs due to severe anemia -Continue Retacrit. -May need evaluation for possible underlying GI bleed MITCHELL/ Secondary HyperPTH with hypocalcemia and hyperPO4 -Continue Vitamin D and Phoslo. BPH with LUTS -Continue tamsulosin Acute PSA cystitis with pyuria and hematuria? -Continue Meropenem Arrange for dialysis placement due to suspected ESRD.
== END 2020-03-23 18:31 | disposition home or self-care (01) | DRG 674 ==
LOC: ER 10:17 → ERHOLD 14:16 → 2ND 21:39
PROVIDERS: ADMIT Hospitalist; ATTEND Internal Medicine
PROC: 5A1D70Z Performance of Urinary Filtration, Intermittent, Less than 6 Hours Per Day (ICD-10-PCS; 2020-03-17)
PROC: 02HV33Z Insertion of Infusion Device into Superior Vena Cava, Percutaneous Approach (ICD-10-PCS; 2020-03-18)
PROC: 30233N1 Transfusion of Nonautologous Red Blood Cells into Peripheral Vein, Percutaneous Approach (ICD-10-PCS; 2020-03-18)
PROC: 0JH63XZ Insertion of Tunneled Vascular Access Device into Chest Subcutaneous Tissue and Fascia, Percutaneous Approach (ICD-10-PCS; principal; 2020-03-18 13:00)
DX: N17.9 Acute kidney failure, unspecified (principal); I12.0 Hypertensive chronic kidney disease with stage 5 chronic kidney disease or end stage renal disease; E87.2 Acidosis; E44.0 Moderate protein-calorie malnutrition; Z68.1 Body mass index [BMI] 19.9 or less, adult; N30.01 Acute cystitis with hematuria; A04.72 Enterocolitis due to Clostridium difficile, not specified as recurrent; N18.6 End stage renal disease; D63.1 Anemia in chronic kidney disease; L29.9 Pruritus, unspecified; J44.9 Chronic obstructive pulmonary disease, unspecified; E87.6 Hypokalemia; D69.6 Thrombocytopenia, unspecified; N25.0 Renal osteodystrophy; E21.1 Secondary hyperparathyroidism, not elsewhere classified; N40.1 Benign prostatic hyperplasia with lower urinary tract symptoms; B96.5 Pseudomonas (aeruginosa) (mallei) (pseudomallei) as the cause of diseases classified elsewhere; Z99.2 Dependence on renal dialysis; Z88.1 Allergy status to other antibiotic agents; Z79.899 Other long term (current) drug therapy; Z88.5 Allergy status to narcotic agent; Z20.822 Contact with and (suspected) exposure to COVID-19
CPT/HCPCS: 36415; 36430; 70450; 71045; 76000; 76770; 76857; 80048; 80053; 80069; 81001; 81003; 81015; 82550; 82570; 82607; 82728; 82746; 83520; 83540; 83735; 84100; 84132; 84156; 84466; 84550; 85014; 85018; 85025; 85027; 85044; 85610; 85730; 86021; 86038; 86160; 86225; 86317; 86704; 86803; 86850; 86900; 86901; 87077; 87086; 87088; 87186; 87324; 87340; 87449; 87493; 90935; 93005; 94760; 96365; 96372; 96375; 97110; 97116; 97161; 97530; 99285; C1752; J0610; J0692; J0696; J1200; J1644; J2250; J2370; J2704; J3475; J3480; J7040; J7050; P9016; Q5105; Q5106; U0003

== ENCOUNTER 2020-06-29 11:57 | Inpatient (IN) | payer OTHER ==
--- OUTSIDE RECORDS SUMMARY | 2020-06-29 12:00 | XMS REPORT | Continuity of Care Document ---
:1950 Author Organization [facility] t Address [address] [place] [address] Care Team Providers Name Role Phone Zak GUILLORY Attending Clinician Problems This patient has no known problems. Allergies, Adverse Reactions, Alerts Allergy Allergy Status Severity Reaction(s) Onset Inactive Treating Comm ents Source Name Type Date Date Clinician Predniso Adverse Active swelling[facility] Reaction [facility], [facility] Medications Ordered Filled Start Stop Current Ordering Indication Dosage Frequency Signature Comments Components Source Medication Medication Date Date Medication? Clinician (SIG) Name Name Tamsulosin Tamsulosin 2020- No Sanam [address] [facility] HCl HCl 10-21- [facility] Cefdinir Cefdinir 2019- No Sanam as [facility] 10-21 [facility] Mucinex DM Mucinex DM Yes Sanam 1 -[address] [facility] tablet as [facility] - [facility] Flomax Flomax Yes [facility] Albuterol Albuterol Yes Sanam [address] ml [address] [facility] Sulfate Sulfate Toan needed [facility] Ferrous Ferrous Yes Sanam [address] [facility] Sulfate Sulfate Toan [facility] BusPIRone BusPIRone Yes Sanam [address] [facility] HCl HCl Talala [facility] Ibuprofen Ibuprofen Yes [facility]am [address] [facility] Toan with food [facility] - or milk as [facility] Procedures This patient has no known procedures. Encounters Start End Encounter Admission Attending Care Care Encounter Source Date/Time Date/Time Type Type Clinicians Facility Department ID 2020-05-18 2020-05-18 [facility] [id number] [facility] 2020-05-12 2020-05-12 [facility] [id number] [facility] 2020-05-04 2020-05-04 [facility] [id number] [facility] 2020-05-03 2020-05-03 [facility] [id number] [facility] 2020-04-27 2020-04-27 [facility] [id number] [facility] 2020-04-18 2020-04-18 [facility] [id number] [facility] 2020-04-17 2020-04-17 [facility] [id number] [facility] 2020-04-14 2020-04-14 [facility] [id number] [facility] 2020-04-13 2020-04-13 [facility] [id number] [facility] 2020-04-11 2020-04-11 [facility] [id number] [facility] 2020-04-10 2020-04-10 [facility] [id number] [facility] 2020-04-07 2020-04-07 [facility] [id number] [facility] 2020-04-06 2020-04-06 [facility] [id number] [facility] 2020-03-31 2020-03-31 [facility] [id number] [facility] 2020-03-15 2020-03-15 [facility] [id number] [facility] 2020-03-13 2020-03-13 [facility] [id number] [facility] 2020-03-12 2020-03-12 [facility] [id number] [facility] 2020-03-07 2020-03-07 [facility] [id number] [facility] 2020-02-11 2020-02-11 [facility] [id number] [facility] 2019-12-09 2019-12-09 Out[facility] [id number] [facility] 2019-12-07 2019-12-07 [facility] [id number] [facility] 2019-12-01 2019-12-01 [facility] [id number] [facility] 2019-12-01 2019-12-01 [facility] [id number] [facility] 2019-11-26 2019-11-26 [facility] [id number] [facility] 2019-11-18 2019-11-18 [facility] [id number] [facility] 11:00:00 11:00:00 t Specialty/[facility] - [facility] 2019-11-11 2019-11-11 [facility] [id number] [facility] 13:08:00 13:08:00 t Specialty/U [facility] - Specialty [facility]y [facility]rology [facility] l [facility] Out[facility] Clin[facility] 2019-10-27 2019-10-27 [facility] [id number] [facility] 10:30:00 10:30:00 t Specialty/U [facility] - Special[facility]y [facility]Urology Clinic l Clinic Outpat[facility] ent Clinics 2019-10-23 2019-10-23 [facility] [id number] [facility] 14:29:00 14:29:00 t [facility] l [facility] Outpati ent Clinics 2019-10-22 2019-10-22 [facility] [id number] 15:15:00 15:15:00 t Specialty/U [facility] - Specialty rology [facility] /Urology Clinic l Clinic Outpati ent Clinics 2019-09-16 2019-09-16 Office [facility] [id number] 14:24:14 16:28:18 Visit , [place] [id number] [place] [id number] Results This patient has no known results.
[2020-06-29 12:45] LABS: Absolute Lymphocytes (CBC) 0.2 K/uL (0.7-4.9); Basophils % 0.4 % (0-1.3); Lymphocytes % 10.9 % (15.3-44.8); MPV 9.5 fL (7.6-11.3); RBC Red Blood Cell Count 4.39 M/uL (4.33-5.43)
[2020-06-29 13:06] LABS: C-Reactive Protein 61.3 mg/L (<3.00); Potassium 4.9 mmol/L (3.5-5.1); Troponin (Emerg Dept Use Only) 0.04 ng/mL (0.0-0.045)
[2020-06-29] MEDS ORDERED: NA CHLORIDE 0.9% 1,000 ML ONE (13:09)
[2020-06-29] MEDS ORDERED: METHYLPREDNISOLONE 125 MG INJ ONE (13:09)
[2020-06-29 13:10] LABS: Blood Morphology Comment NOT SEEN (NOT SEEN); Platelet Estimate DECR; White Blood Cell Scan OK (OK)
[2020-06-29 13:10] LABS: Urine Blood 2+ (Negative); Urine Glucose Negative (Negative); Urine Protein 2+ (Negative); Urine Specific Gravity 1.015 (1.005-1.030); Urine pH 5.5 (5.0-7.0)
[2020-06-29] MEDS ORDERED: ALBUTEROL INHALER 60 PUFF/8 GM IH ONE (13:10)
--- NOTE | 2020-06-29 13:30 | RAD REPORT ---
EXAM DESCRIPTION: RAD - Chest Single View - 06/29/2020 1:12 pm CLINICAL HISTORY: Cough;Dyspnea Chest pain. COMPARISON: Chest Single View dated 03/18/2020; Chest Single View dated 03/17/2020; Chest Pa And Lat (2 Views) dated 03/08/2019; Chest Pa And Lat (2 Views) dated 02/05/2019 FINDINGS: Portable technique limits examination quality. Prominent emphysematous changes are present. There is patchy opacity in the left lower lung suspiciou s for infiltrate/pneumonia. The heart is normal in size. Right-sided venous catheter tip in the SVC.
[2020-06-29 13:31] LABS: Urine Amorphous Sediment 2+ /HPF (NONE SEEN); Urine Bacteria NONE SEEN /HPF (NONE SEEN); Urine Mucus LIGHT /HPF (NONE SEEN)
[2020-06-29] MEDS ORDERED: CEFTRIAXONE/SWI 1gm 1 GM/10 ML SYR ONE (14:10)
--- NOTE | 2020-06-29 14:19 | ER ---
Nurse's Notes [facility] Name: Harley Gregory Age: 70 yrs Sex: Male : 1950 Arrival Date: 06/29/2020 Time: 12:01 Bed 13 Private MD: Diagnosis: Coronavirus infection, unspecified;Pneumonia, unspecified organism;Hypoxemia;Chronic obstructive pulmonary disease with (acute) exacerbation Presentation: 06/29 12:16 Chief complaint: Patient states: Cough, congestion, runny nose, muscle aches, SOB x 5 ca1 days. Pt on dialysis MWF, dialysis last was Friday. Coronavirus screen: Client denies travel out of the [place] in the last 14 days. congestion, cough unrelated to allergies, difficulty breathing, muscle pain, runny nose, shortness of breath, Client presents with at least one sign or symptom that may indicate coronavirus-19. Standard/surgical mask placed on the client. Provider contacted for isolation considerations. Ebola Screen: Patient negative for fever greater than or equal to 101.5 degrees Fahrenheit, and additional compatible Ebola Virus Disease symptoms Patient denies exposure to infectious person. Patient denies travel to an Ebola-affected area in the 21 days before illness onset. No symptoms or risks identified at this time. Initial Sepsis Screen: Does the patient meet any 2 criteria? RR > 20 per min. Yes Does the patient have a suspected source of infection? Yes: Productive cough/pneumonia Other: O2 at 82% RA. Risk Assessment: Do you want to hurt yourself or someone else? Patient reports no desire to harm self or others. Onset of symptoms was June 29, 2020. 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 Pneumococcal vaccine is not up to date, Flu vaccine is not up to date. - Social history:: Smoking status: Patient reports the use of cigarette tobacco products, smokes one-half pack cigarettes per day. - Family history:: not pertinent. - Hospitalizations: : No recent hospitalization is reported. Screenin:45 Abuse screen: Denies threats or abuse. Denies injuries from another. Nutritional zb screening: No deficits noted. Tuberculosis screening: No symptoms or risk factors identified. Fall Risk None identified. Assessment: 12:10 Reassessment: ECP at bedside. zb 12:46 General: Appears in no apparent distress. comfortable, Reports feeling ill for > 3 zb days, fatigue for >3 days. Pain: Complains of pain in generalized body aches. Pain currently is 5 out of 10 on a pain scale. Neuro: Level of Consciousness is awake, alert, obeys commands, Oriented to person, place, time, situation. Cardiovascular: Denies chest pain, Heart tones S1 S2 present Capillary refill is > 3 seconds is sluggish fingers. Respiratory: Reports shortness of breath at rest cough that is persistent Airway is patent Trachea midline Respiratory effort is even, unlabored, Respiratory pattern is tachypnea Breath sounds are diminished bilaterally. Breath sounds with wheezes in right lower lobe Onset: The symptoms/episode began/occurred 5 days ago, the patient has severe shortness of breath. GI: No deficits noted. Derm: Skin is intact, Skin is dry, Skin is normal, Skin temperature is cool. Musculoskeletal: Range of motion: intact in all extremities. 13:20 Reassessment: notified ecp creatine level. IV fluids discontinued. zb 13:46 Reassessment: Patient appears in no apparent distress at this time. Patient and/or zb family updated on plan of care and expected duration. Pain level reassessed. patient states that he is able to breath a lot better. remains on 5L o2 nc. 14:00 Reassessment: ecp at bedside discussing care. zb 14:57 Reassessment: Patient appears in no apparent distress at this time. Patient and/or zb family updated on plan of care and expected duration. Pain level reassessed. pt states he is doing fine. lying in bed. IV medication infusing. 15:57 Reassessment: Patient appears in no apparent distress at this time. Patient and/or zb family updated on plan of care and expected duration. Pain level reassessed. 16:57 Reassessment: Patient appears in no apparent distress at this time. Patient and/or zb family updated on plan of care and expected duration. Pain level reassessed. 17:50 Reassessment: Patient appears in no apparent distress at this time. Patient and/or zb family updated on plan of care and expected duration. Pain level reassessed. 19:39 Reassessment: Patient appears in no apparent distress at this time. Patient and/or zb family updated on plan of care and expected duration. Pain level reassessed. Patient is alert, oriented x 3, equal unlabored respirations, skin warm/dry/pink. patient changed different rooms. no changes at this time. Vital Signs: 12:16 BP 91 / 60; Pulse 72; Resp 26; Pulse Ox 82% on R/A; Weight 60 kg; Height 6 ft. 0 in. ca1 (182.88 cm); Pain 0/10; 12:19 Pulse Ox 86% on 2 lpm NC; ca1 12:22 Temp 98.3(O); zb 12:30 BP 101 / 69; Pulse 75; Resp 28; Pulse Ox 95% on 5 lpm NC; zb 13:46 BP 124 / 65; Pulse 71; Resp 22; Pulse Ox 94% 5 lpm ; zb 14:57 BP 114 / 69; Pulse 72; Resp 20; Pulse Ox 93% 5 lpm ; zb 21:00 BP 104 / 66; Pulse 83; Resp 16; Pulse Ox 94% on 5 lpm NC; zb 06/30 04:42 BP 107 / 68; Pulse 60; Resp 24; Temp 98.0; Pulse Ox 88% on NC; ea 06/29 12:16 Body Mass Index 17.94 (60.00 kg, 182.88 cm) ca1 ED Course: 06/29 12:01 Patient arrived in ED. am2 12:07 Samir Silva MD is Attending Physician. rn 12:10 Josette Zheng, NEO is Primary Nurse. zb 12:18 Triage completed. ca1 12:19 Arm band placed on right wrist. ca1 12:20 Inserted saline lock: 20 gauge in right antecubital area, using aseptic technique. zb Blood collected. 12:30 First set of blood cultures drawn by me, Second set of blood cultures drawn by lab zb staff. EKG done, by technician biological health. COVID swab sent to lab. Flu and/or RSV swab sent to lab. 12:46 Patient has correct armband on for positive identification. Bed in low position. Call zb light in reach. Side rails up X 1. ekg monitor tech on. Pulse ox on. NIBP on. Door closed. Noise minimized. PO fluids given. 13:19 Chest Single View XRAY In Process Unspecified. EDMS 14:16 Scott Terrell is Hospitalizing Provider. rn 06/30 04:42 No provider procedures requiring assistance completed. Patient admitted, IV remains in ea place. 12:49 Diet tray given. jp3 Administered Medications: Discontinued: NS 0.9% 1000 ml IV at 1000 ml once 06/29 12:50 Drug: SOLU-Medrol (methylPrednisoLONE) 125 mg Route: IVP; Site: right antecubital; zb 13:00 Follow up: Response: No adverse reaction; Marked relief of symptoms zb 12:50 Drug: Albuterol HFA Inhaler 2 puffs Route: Inhalation; zb 13:00 Follow up: Response: No adverse reaction; Marked relief of symptoms zb 12:50 Drug: NS 0.9% 1000 ml Route: IV; Rate: 1000 ml; Site: right antecubital; zb 13:40 Follow up: Response: No adverse reaction; IV Status: Order to discontinue infusion; IV zb Intake: 700ml 13:54 Drug: Rocephin (cefTRIAXone) 1 grams Route: IV; Rate: calculated rate; Site: right zb antecubital; 14:00 Follow up: Response: No adverse reaction; IV Status: Completed infusion; IV Intake: 20mlzb 14:58 Drug: Zithromax (azithromycin) 500 mg Route: IVPB; Infused Over: 1 hrs; Site: right zb antecubital; Intake: 13:40 IV: 700ml; Total: 700ml. zb 14:00 IV: 20ml; Total: 720ml. zb Outcome: 14:18 Decision to Hospitalize by Provider. rn 20:19 Admitted to ER Hold. Please see [facility] for further documentation. zb 06/30 14:10 Patient left the ED. bp Signatures: Dispatcher [employer] EDMS Samir Silva MD MD rn Moreno, Amanda am2 Agatha Bolivar RN Oliver Sargent ea, RN RN Toby Chen jp3 Cheryle Carreno RN RN ca1 Brown, Zipporah, RN RN zb Corrections: (The following items were deleted from the chart) 06/29 13:02 12:46 Respiratory: Reports shortness of breath at rest cough that is persistent Airway zb is patent Trachea midline Respiratory effort is even, unlabored, Respiratory pattern is tachypnea zb
--- NOTE | 2020-06-29 14:19 | EDPHYS ---
Physician Documentation [facility] Name: Harley Gregory Age: 70 yrs Sex: Male : 1950 Arrival Date: 06/29/2020 Time: 12:01 Bed 13 Private MD: ED Physician Samir Silva HPI: 06/29 13:40 This 70 yrs old Male presents to ER via Wheelchair with complaints of R/O rn Covid. 13:40 The patient has shortness of breath at rest, with light activity. Onset: The rn symptoms/episode began/occurred 5 day(s) ago. Duration: The symptoms are continuous. The patient's shortness of breath is aggravated by exertion, light activity, talking, walking, is alleviated by nothing. Associated signs and symptoms: Pertinent positives: productive cough, Pertinent negatives: fever, hemoptysis. Severity of symptoms: At their worst the symptoms were moderate in the emergency department the symptoms are unchanged. The patient has experienced similar episodes in the past. The patient has not recently seen a physician. Reports cough, sob, fatigue, for 5 days, not on home O2, + hx of COPD. No known sick contacts. . 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 Pneumococcal vaccine is not up to date, Flu vaccine is not up to date. - Social history:: Smoking status: Patient reports the use of cigarette tobacco products, smokes one-half pack cigarettes per day. - Family history:: not pertinent. - Hospitalizations: : No recent hospitalization is reported. ROS: 13:40 Constitutional: Negative for fever, + chills Eyes: Negative for injury, pain, redness, rn and discharge, ENT: Negative for injury, pain, and discharge, Neck: Negative for injury, pain, and swelling, Cardiovascular: Negative for chest pain, palpitations, and edema, Respiratory: + cough and sob Abdomen/GI: Negative for abdominal pain, nausea, vomiting, diarrhea, and constipation, Back: Negative for injury and pain, : Negative for injury, bleeding, discharge, and swelling, MS/Extremity: Negative for injury and deformity, Skin: Negative for injury, rash, and discoloration, Neuro: Negative for headache, numbness, tingling, and seizure. Exam: 13:40 Constitutional: This is a well developed, well nourished patient who is awake, alert, rn + moderate tachypnea Head/Face: Normocephalic, atraumatic. ENT: dry MM Cardiovascular: Regular rate and rhythm. No pulse deficits. Respiratory: + moderate tachypnea, coarse bilateral breath sounds, no retractions Abdomen/GI: soft, non-tender Skin: Warm, dry MS/ Extremity: Pulses equal, no cyanosis. Neuro: Awake and alert, GCS 15 Vital Signs: 12:16 BP 91 / 60; Pulse 72; Resp 26; Pulse Ox 82% on R/A; Weight 60 kg; Height 6 ft. 0 in. ca1 (182.88 cm); Pain 0/10; 12:19 Pulse Ox 86% on 2 lpm NC; ca1 12:22 Temp 98.3(O); zb 12:30 BP 101 / 69; Pulse 75; Resp 28; Pulse Ox 95% on 5 lpm NC; zb 13:46 BP 124 / 65; Pulse 71; Resp 22; Pulse Ox 94% 5 lpm ; zb 14:57 BP 114 / 69; Pulse 72; Resp 20; Pulse Ox 93% 5 lpm ; zb 21:00 BP 104 / 66; Pulse 83; Resp 16; Pulse Ox 94% on 5 lpm NC; zb 06/30 04:42 BP 107 / 68; Pulse 60; Resp 24; Temp 98.0; Pulse Ox 88% on NC; ea 06/29 12:16 Body Mass Index 17.94 (60.00 kg, 182.88 cm) ca1 MDM: 06/29 12:07 Patient medically screened. rn 14:13 Differential diagnosis: Bronchitis Chronic Obstructive Pulmonary Disease Myocardial rn Infarction pneumonia, Pneumothorax pulmonary edema, reactive airway disease. Data reviewed: vital signs, nurses notes, lab test result(s), EKG, radiologic studies, plain films, and as a result, I will admit patient. Counseling: I had a detailed discussion with the patient and/or guardian regarding: the historical points, exam findings, and any diagnostic results supporting the discharge/admit diagnosis, lab results, radiology results, the need for further work-up and treatment in the hospital. Response to treatment: the patient's symptoms have mildly improved after treatment, and as a result, I will admit patient. Admission orders: after a detailed discussion of the patient's condition and case, the admit orders are written by me. ED course: Pt with COVID pneumonia, + oxygen requirement, will admit to hospitalist service for further care. Improved BP. Patient feels much better. . 06/29 12:16 Order name: C-Reactive Protein rn 06/29 12:16 Order name: Basic Metabolic Panel 06/29 12:16 Order name: Blood Culture Adult (2) rn 06/29 12:16 Order name: CBC with Diff rn 06/29 12:16 Order name: CPK rn 06/29 12:16 Order name: Lactate; Complete Time: 13:29 rn 06/29 12:16 Order name: Procalcitonin; Complete Time: 13:29 rn 06/29 12:16 Order name: Troponin (emerg Dept Use Only); Complete Time: 13:29 rn 06/29 12:16 Order name: Urine Microscopic Only; Complete Time: 13:56 rn 06/29 12:16 Order name: BNP; Complete Time: 13:29 rn 06/29 12:16 Order name: C-Reactive Protein; Complete Time: 13:29 ED[facility] 06/29 12:16 Order name: Basic Metabolic Panel; Complete Time: 13:29 [facility] 06/29 12:16 Order name: Chest Single View XRAY; Complete Time: 13:31 rn 06/29 12:16 Order name: Blood Culture ED[facility] 06/29 12:16 Order name: CBC with Automated Diff; Complete Time: 13:29 ED[facility] 06/29 12:16 Order name: Creatine Phosphokinase; Complete Time: 13:29 [facility] 06/29 12:47 Order name: CBC Smear Scan; Complete Time: 13:29 ED[facility] 06/29 13:19 Order name: Urine Dipstick-Ancillary; Complete Time: 13:29 ED[facility] 06/29 14:12 Order name: SARS-COV-2 RT PCR EDMS 06/30 06:38 Order name: Phosphorus EDMS 06/30 06:38 Order name: Lipid Profile EDMS 06/30 06:38 Order name: C-Reactive Protein EDMS 06/30 06:38 Order name: Magnesium EDMS 06/30 06:38 Order name: Ferritin EDMS 06/30 07:04 Order name: CBC with Automated Diff EDMS 06/30 08:31 Order name: Glucose, Ancillary Testing EDMS 06/30 12:35 Order name: Glucose, Ancillary Testing EDMS 06/30 13:39 Order name: Manual Differential EDMS 06/29 12:16 Order name: Accucheck; Complete Time: 18:53 rn 06/29 12:16 Order name: Cardiac monitoring; Complete Time: 18:53 rn 06/29 12:16 Order name: EKG - Nurse/Tech; Complete Time: 18:53 rn 06/29 12:16 Order name: IV Saline Lock - Large Bore; Complete Time: 18:53 rn 06/29 12:16 Order name: Labs collected and sent; Complete Time: 18:53 rn 06/29 12:16 Order name: O2 Per Protocol; Complete Time: 18:53 rn 06/29 12:16 Order name: O2 Sat Monitoring; Complete Time: 18:53 rn 06/29 12:16 Order name: Urine Dipstick-Ancillary (obtain specimen); Complete Time: 18:53 rn Administered Medications: Discontinued: NS 0.9% 1000 ml IV at 1000 ml once 12:50 Drug: SOLU-Medrol (methylPrednisoLONE) 125 mg Route: IVP; Site: right antecubital; zb 13:00 Follow up: Response: No adverse reaction; Marked relief of symptoms zb 12:50 Drug: Albuterol HFA Inhaler 2 puffs Route: Inhalation; zb 13:00 Follow up: Response: No adverse reaction; Marked relief of symptoms zb 12:50 Drug: NS 0.9% 1000 ml Route: IV; Rate: 1000 ml; Site: right antecubital; zb 13:40 Follow up: Response: No adverse reaction; IV Status: Order to discontinue infusion; IV zb Intake: 700ml 13:54 Drug: Rocephin (cefTRIAXone) 1 grams Route: IV; Rate: calculated rate; Site: right zb antecubital; 14:00 Follow up: Response: No adverse reaction; IV Status: Completed infusion; IV Intake: 20mlzb 14:58 Drug: Zithromax (azithromycin) 500 mg Route: IVPB; Infused Over: 1 hrs; Site: right zb antecubital; Disposition: 06/29/20 14:18 Hospitalization ordered by Scott Terrell for Inpatient Admission. Preliminary diagnosis are Coronavirus infection, unspecified, Pneumonia, unspecified organism, Hypoxemia, Chronic obstructive pulmonary disease with (acute) exacerbation. - Bed requested for Telemetry/MedSurg (Inpatient). - Status is Inpatient Admission. bp - Condition is Stable. - Problem is new. - Symptoms have improved. Signatures: Dispatcher [employer] ED[facility] Natalie Harris RN Gertrudis Beltran, RN Samir Barker MD MD rn Peltier, Brian RN NEO bp Acob, Cheryle, RN Josette Díaz RN RN zb Corrections: (The following items were deleted from the chart) 13:19 12:17 Influenza Screen (A \T\ B)+BA.LAB.BRZ ordered. EDMS EDMS 13:19 12:17 CORONAVIRUS+MR.LAB.BRZ ordered. EDNH EDMS 19:27 14:18 Hospitalization Ordered by Scott Terrell for Inpatient Admission. Preliminary diagnosis is Coronavirus infection, unspecified; Pneumonia, unspecified organism; Hypoxemia; Chronic obstructive pulmonary disease with (acute) exacerbation. Bed requested for Telemetry/MedSurg (Inpatient). Status is Inpatient Admission. Condition is Stable. Problem is new. Symptoms have improved. rn 06/30 13:22 06/29 19:27 06/29/2020 14:18 Hospitalization Ordered by Scott Terrell for Inpatient dw Admission. Preliminary diagnosis is Coronavirus infection, unspecified; Pneumonia, unspecified organism; Hypoxemia; Chronic obstructive pulmonary disease with (acute) exacerbation. Bed requested for [facility] ER HOLD. Status is Inpatient Admission. Condition is Stable. Problem is new. Symptoms have improved. mw 06/30 14:10 13:22 06/29/2020 14:18 Hospitalization Ordered by Scott Terrell for Inpatient bp Admission. Preliminary diagnosis is Coronavirus infection, unspecified; Pneumonia, unspecified organism; Hypoxemia; Chronic obstructive pulmonary disease with (acute) exacerbation. Bed requested for Telemetry/MedSurg (Inpatient). Status is Inpatient Admission. Condition is Stable. Problem is new. Symptoms have improved.
[2020-06-29] MEDS ORDERED: AZITHROMYCIN 500 MG/250 ML BAG IV SCH (14:30)
--- NOTE | 2020-06-29 16:14 | P.HP ---
Certification for Inpatient Patient admitted to: Inpatient With expected LOS: >2 Midnights Practitioner: I am a practitioner with admitting privileges, knowledge of patient current condition, hospital course, and medical plan of care. Services: Services provided to patient in accordance with Admission requirements found in Title 42 Section 412.3 of the Code of Federal Regulations Patient History Date of Service: 06/29/20 Reason for admission: Shortness of breath History of Present Illness: 70-year-old gentleman with a history of COPD, end-stage renal disease on hemodialysis, hypertension presented to the emergency department with a complaint of shortness of breath of about 5 days duration. Patient also reports cough productive of clear sputum. He denied any chest pain. He denied any fever. Patient tested positive for COVID 19 in the ED today. Chest x-ray reported mild patchy opacity in the left lower lobe suspected to be an infiltrate. His oxygen saturation was 82% on room air in the ED. Patient placed on 3 L oxygen by nasal cannula. He continues to smoke about a pack of cigarettes per day. Patient is admitted for further management. Allergies codeine Allergy (Verified 03/17/20 09:11) Hives prednisone Allergy (Verified 05/09/20 11:40) Itching ciprofloxacin [From Cipro] Adverse Reaction (Verified 03/17/20 09:11) Hives Home Medications: Tamsulosin [Flomax*] 0.4 mg PO DAILY 03/08/19 Albuterol Sulfate [Albuterol Sulfate Hfa] 8.5 gm IH PRN 03/17/20 Umeclidinium Brm/Vilanterol Tr [Anoro Ellipta 62.5-25 Mcg INH] 1 each IH DAILY 03/17/20 Calcitrol [Rocaltrol*] 1 mcg PO DAILY #30 cap 03/23/20 Calcium Acetate [Phoslo*] 667 mg PO TIDWM #90 cap 03/23/20 Cholecalciferol (Vitamin D3) [Vitamin D 5,000 IU Cap*] 5,000 unit PO DAILY #30 cap 03/23/20 Epoetin [Retacrit] 4,000 unit IV EVERY HD vial 03/23/20 Mannitol 25% [Mannitol*] 12.5 gm IV EVERY HD PRN vial 03/23/20 Nepro Shake [Nepro*] 237 ml PO BID #60 can 03/23/20 Vancomycin Oral Soln [Vancocin HCl*] 5 ml PO Q6HR #280 ml 03/23/20 hydrOXYzine HCL [Atarax*] 12.5 mg PO Q12H PRN #60 tab 03/23/20 - Past Medical/Surgical History Diabetic: No -: ESRD on HD -: COPD -: HTN -: BPH -: tumor removed from bladder - Family History Family History: Reviewed- Non-Contributory - Social History Smoking Status: Current every day smoker Alcohol use: No CD- Drugs: No Caffeine use: No Review of Systems Other: Except as documented, all other systems reviewed and negative. Physical Examination - Physical Exam General: Alert, In no apparent distress, Oriented x3 HEENT: Normocephalic, Mucous membr. moist/pink Neck: Supple, JVD not distended Respiratory: Clear to auscultation bilaterally, Normal air movement Cardiovascular: No edema, Regular rate/rhythm, Normal S1 S2 Gastrointestinal: Normal bowel sounds, Soft and benign, Non-distended, No tenderness Musculoskeletal: No swelling, No tenderness Integumentary: No rashes, No erythema Neurological: Normal speech, Normal strength at 5/5 x4 extr, Cranial nerves 3-12 intact - Studies Laboratory Data (last 24 hrs) 06/29/20 12:20: WBC 2.00 L, Hgb 14.0, Hct 43.0, Plt Count 63 L 06/29/20 12:20: Sodium 132 L, Potassium 4.9, BUN 82 H, Creatinine 5.92 H*, Glucose 83 Assessment and Plan - Problems (Diagnosis) (1) Pneumonia due to COVID-19 virus Current Visit: Yes Status: Acute (2) COPD exacerbation Current Visit: Yes Status: Acute (3) End-stage renal disease on hemodialysis Current Visit: No Status: Acute (4) Thrombocytopenia Current Visit: Yes Status: Acute - Plan Admit to the medical floor. Start IV Solumedrol Bronchodilators Vitamin supplementation- vitamin C, vitamin-D Zinc supplementation Monitor inflammatory markers. Consult to pulmonary. Patient has significant thrombocytopenia with increased risk of bleeding, so will avoid full anticoagulation Consulting nephrology-Dr. Bear for hemodialysis. Anticipating patient may need home oxygen. Patient advised to quit smoking. - Advance Directives Does patient have a Living Will: No Does patient have a Durable POA for Healthcare: No
[2020-06-29] MEDS: DULERA 100/5 (MOMETASONE/FORMOTEROL) INHALER IH SCH (21:15)
[2020-06-29] MEDS ORDERED: GLUCAGON 1 MG/VIAL IM PRN (21:15)
[2020-06-29] MEDS ORDERED: ALBUTEROL INHALER 60 PUFF/8 GM IH PRN (21:15)
[2020-06-29] MEDS ORDERED: FAMOTIDINE 20 MG/2 ML VIAL IV SCH (21:15)
[2020-06-29] MEDS ORDERED: ONDANSETRON 4 MG/2 ML VIAL IV PRN (21:15)
[2020-06-29] MEDS ORDERED: ACETAMINOPHEN 500 MG TAB PO PRN (21:15)
[2020-06-29] MEDS ORDERED: D50W 25 GM/50 ML SYRINGE IV PRN (21:15)
[2020-06-29] MEDS: INSULIN -REGULAR HUMAN 50 UNIT/0.5 ML ML SQ SCH (21:15)
[2020-06-29] MEDS: METHYLPREDNISOLONE 125 MG INJ IV SCH (22:00)
[2020-06-30 05:55] LABS: Absolute Lymphocytes (CBC) 0.2 K/uL (0.7-4.9); Basophils % 0.5 % (0-1.3); Hematocrit 41.7 % (39.6-49.0); Lymphocytes % 13.5 % (15.3-44.8); MPV 9.9 fL (7.6-11.3); RBC Red Blood Cell Count 4.23 M/uL (4.33-5.43)
[2020-06-30 06:37] LABS: C-Reactive Protein 52.7 mg/L (<3.00); Ferritin 1660.7 ng/mL (26-388); Magnesium 2.1 mg/dL (1.8-2.4); Phosphorus 7.2 mg/dL (2.5-4.9)
[2020-06-30] MEDS: INSULIN -REGULAR HUMAN 50 UNIT/0.5 ML ML SQ SCH ×4 (07:30→20:11)
[2020-06-30] MEDS: METHYLPREDNISOLONE 125 MG INJ IV SCH ×2 (09:00→21:42)
[2020-06-30] MEDS: FAMOTIDINE 20 MG/2 ML VIAL IV SCH (09:00)
[2020-06-30] MEDS: DULERA 100/5 (MOMETASONE/FORMOTEROL) INHALER IH SCH ×2 (09:00→21:00)
[2020-06-30] MEDS ORDERED: METHYLPREDNISOLONE 40 MG INJ ONE (10:31)
[2020-06-30] MEDS ORDERED: FAMOTIDINE 20 MG/2 ML VIAL IV ONE (10:32)
[2020-06-30] MEDS: IPRATROPIUM BROM 0.5MG/2.5ML IH SCH ×3 (13:25→20:30)
--- NOTE | 2020-06-30 13:25 | P.CNS ---
Date of Consult: 06/30/20 Reason for Consult: COVID penumonia and COPD Chief Complaint: Shortness of breath History of Present Illness: Pt is 70 yrs of age present to ER hypoxemia Dx with COVID. HX of COPD heavy smoker. On BD at home. O2 stable. Feeling bad on HD Allergies codeine Allergy (Verified 03/17/20 09:11) Hives prednisone Allergy (Verified 05/09/20 11:40) Itching ciprofloxacin [From Cipro] Adverse Reaction (Verified 03/17/20 09:11) Hives Home Medications: Tamsulosin [Flomax*] 0.4 mg PO DAILY 03/08/19 Albuterol Sulfate [Albuterol Sulfate Hfa] 8.5 gm IH PRN 03/17/20 Umeclidinium Brm/Vilanterol Tr [Anoro Ellipta 62.5-25 Mcg INH] 1 each IH DAILY 03/17/20 Calcitrol [Rocaltrol*] 1 mcg PO DAILY #30 cap 03/23/20 Calcium Acetate [Phoslo*] 667 mg PO TIDWM #90 cap 03/23/20 Cholecalciferol (Vitamin D3) [Vitamin D 5,000 IU Cap*] 5,000 unit PO DAILY #30 cap 03/23/20 Epoetin [Retacrit] 4,000 unit IV EVERY HD vial 03/23/20 Mannitol 25% [Mannitol*] 12.5 gm IV EVERY HD PRN vial 03/23/20 Nepro Shake [Nepro*] 237 ml PO BID #60 can 03/23/20 Vancomycin Oral Soln [Vancocin HCl*] 5 ml PO Q6HR #280 ml 03/23/20 hydrOXYzine HCL [Atarax*] 12.5 mg PO Q12H PRN #60 tab 03/23/20 - Past Medical/Surgical History Diabetic: No -: ESRD on HD -: COPD -: HTN -: BPH -: tumor removed from bladder - Social History Smoking Status: Unknown if ever smoked Alcohol use: No CD- Drugs: No Caffeine use: No Review of Systems General: Weakness Respiratory: Cough, Shortness of Breath Physical Examination Temp Pulse Resp BP Pulse Ox 98.4 F 64 20 107/67 97 06/30/20 00:00 06/30/20 12:00 06/30/20 12:00 06/30/20 12:00 06/30/20 12:00 General: Alert, In no apparent distress, Oriented x3 Respiratory: Diminished, Expiratory wheezes Cardiovascular: No edema, Regular rate/rhythm - Problems (1) Pneumonia due to COVID-19 virus Current Visit: Yes Status: Acute Plan: Pt is 70 yrs of age AW Poss COVID penumonia. HXo fCOPD Doing well/ CXRy ILD. High flow O2 . Labs reviewed. Add Remdesmir, Ivermectin
[2020-06-30 13:38] LABS: Blood Morphology Comment NOT SEEN (NOT SEEN); Platelet Estimate DECR
[2020-06-30] MEDS: ASCORBIC ACID 500 MG TABLET PO SCH ×2 (14:32→21:41)
--- NOTE | 2020-06-30 15:07 | P.CNS ---
Date of Consult: 06/30/20 Reason for Consult: ESRD Requesting Physician: junior jose Chief Complaint: Shortness of breath History of Present Illness: 70-year-old gentleman with a history of COPD, end-stage renal disease on hemodialysis, hypertension presented to the emergency department with a complaint of shortness of breath of about 5 days duration. Patient also reports cough productive of clear sputum. He denied any chest pain. He denied any fever. Patient tested positive for COVID 19 in the ED today. Chest x-ray reported mild patchy opacity in the left lower lobe suspected to be an infiltrate. His oxygen saturation was 82% on room air in the ED. Patient placed on 3 L oxygen by nasal cannula. He continues to smoke about a pack of cigarettes per day. 13:40 This 70 yrs old Male presents to ER via Wheelchair with comp laints of R/O rn Covid. 13:40 The patient has shortness of breath at rest, with light activity. Onset: The rn symptoms/episode began/occurred 5 day(s) ago. Duration: The symptoms are continuous. The patient's shortness of breath is aggravated by exertion, light activit y, talking, walking, is alleviated by nothing. Associated signs and symptoms: Pertinent positives: productive cough, Pertinent negatives: fever, hemoptysis. Severity of symptoms: At their worst the symptoms were moderate in the emergency department the symptoms are unchanged. The patient has experienced similar episodes in the past. The patient has not recently seen a physician. Reports cough, sob, fatigue, for 5 days, not on home O2, + hx of COPD. No known sick contacts. Allergies codeine Allergy (Verified 03/17/20 09:11) Hives prednisone Allergy (Verified 05/09/20 11:40) Itching ciprofloxacin [From Cipro] Adverse Reaction (Verified 03/17/20 09:11) Hives Home medications list reviewed: Yes Home Medications: Tamsulosin [Flomax*] 0.4 mg PO DAILY 03/08/19 Albuterol Sulfate [Albuterol Sulfate Hfa] 8.5 gm IH PRN 03/17/20 Umeclidinium Brm/Vilanterol Tr [Anoro Ellipta 62.5-25 Mcg INH] 1 each IH DAILY 03/17/20 Calcitrol [Rocaltrol*] 1 mcg PO DAILY #30 cap 03/23/20 Calcium Acetate [Phoslo*] 667 mg PO TIDWM #90 cap 03/23/20 Cholecalciferol (Vitamin D3) [Vitamin D 5,000 IU Cap*] 5,000 unit PO DAILY #30 cap 03/23/20 Epoetin [Retacrit] 4,000 unit IV EVERY HD vial 03/23/20 Mannitol 25% [Mannitol*] 12.5 gm IV EVERY HD PRN vial 03/23/20 Nepro Shake [Nepro*] 237 ml PO BID #60 can 03/23/20 Vancomycin Oral Soln [Vancocin HCl*] 5 ml PO Q6HR #280 ml 03/23/20 hydrOXYzine HCL [Atarax*] 12.5 mg PO Q12H PRN #60 tab 03/23/20 - Past Medical/Surgical History Diabetic: No -: ESRD on HD -: COPD -: HTN -: BPH -: tumor removed from bladder - Social History Smoking Status: Unknown if ever smoked Alcohol use: No CD- Drugs: No Caffeine use: No Review of Systems 10-point ROS is otherwise unremarkable General: Weakness, Malaise Respiratory: SOB with Excertion Neurological: Weakness Physical Examination Temp Pulse Resp BP Pulse Ox 97.1 F 68 24 H 103/59 L 100 06/30/20 14:38 06/30/20 14:38 06/30/20 14:38 06/30/20 14:38 06/30/20 14:38 General: In no apparent distress, Oriented x3, Cooperative HEENT: Atraumatic Neck: Supple Respiratory: Diminished Cardiovascular: No edema, Regular rate/rhythm Gastrointestinal: Soft and benign, Non-distended Musculoskeletal: No clubbing, No contractures Integumentary: No rashes, No cyanosis Neurological: Normal speech Blood work reviewed in the chart. Imagings Data: EXAM DESCRIPTION: RAD - Chest Single View - 06/29/2020 1:12 pm CLINICAL HISTORY: Cough;Dyspnea Chest pain. COMPARISON: Chest Single View dated 03/18/2020; Chest Single View dated 03/17/2020; Chest Pa And Lat (2 Views) dated 03/08/2019; Chest Pa And Lat (2 Views) dated 02/05/2019 FINDINGS: Portable technique limits examination quality. Prominent emphysematous changes are present. There is patchy opacity in the left lower lung suspicious for infiltrate/pneumonia. The heart is normal in size. Right-sided venous catheter tip in the SVC. Conclusions/Impression: A/P: Continue the current POC and Medications other than the changes listed. AM Labs PRN. Recommend daily weight. Please see the orders for complete details. ESRD -HD TIW Hyponaremia -HD TIW Acidosis -HD TIW HTN with CKD/ CHF -Monitor BP Diastolic CHF, chronic -Low sodium diet Moderate malnutrition -Start Nepro shake TID Anemia in CKD -Start Retacrit MITCHELL/ Secondary HyperPTH Hypocalcemia HyperPO4 -Continue Vitamin D3 -Start Phoslo BPH with LUTS -Start Flomax COVID-19 PNA -Continue Oxygen support -Continue steroids -Continue remdesevir Thank you kindly for the consultation. Case reviewed with Dr. Jose
[2020-06-30 15:14] LABS: ALT/SGPT 32 U/L (12-78); AST/SGOT 47 U/L (15-37); Albumin 2.8 g/dL (3.4-5.0); Alkaline Phosphatase 50 U/L (45-117); Bilirubin Direct < 0.1 mg/dL (0-0.2); Bilirubin Total 0.3 mg/dL (0.2-1.0)
[2020-06-30] MEDS: IVERMECTIN 3 MG TABLET PO SCH (15:39)
[2020-06-30] MEDS ORDERED: Remdesivir 200 MG in NA CHLORIDE 0.9% 250 ML IV ONE (16:00)
--- NOTE | 2020-06-30 16:11 | P.PN ---
Subjective Date of Service: 06/30/20 Chief Complaint: Shortness of breath Patient currently on high-flow oxygen. Physical Examination - Vital Signs Temperature: 97.1 F Blood Pressure: 103/59 Pulse: 68 Respirations: 24 Pulse Ox (%): 100 - Physical Exam General: In no apparent distress, Other (Awake) Neck: JVD not distended Respiratory: Other (Nonlabored breathing) Cardiovascular: No edema, Regular rate/rhythm, Normal S1 S2 Gastrointestinal: Soft and benign, Non-distended Musculoskeletal: No swelling Integumentary: No rashes Neurological: Normal strength at 5/5 x4 extr Assessment And Plan - Current Problems (Diagnosis) (1) Pneumonia due to COVID-19 virus Current Visit: Yes Status: Acute (2) COPD exacerbation Current Visit: Yes Status: Acute (3) End-stage renal disease on hemodialysis Current Visit: No Status: Acute (4) Thrombocytopenia Current Visit: Yes Status: Acute - Plan Continue IV Solumedrol Bronchodilators Vitamin supplementation- vitamin C, vitamin-D Zinc supplementation Monitor inflammatory markers. Pulmonary input appreciated. Patient started on Remdesivir Patient has significant thrombocytopenia with increased risk of bleeding, so avoiding full anticoagulation Hemodialysis per Dr. Bear. Will also cover empirical for bacterial infection with oral Zithromax.
[2020-06-30] MEDS: NEPRO SHAKE 237 ML CAN PO SCH (21:00)
[2020-06-30] MEDS: THIAMINE HCL 100 MG TABLET PO SCH (21:42)
[2020-06-30] MEDS: TAMSULOSIN 0.4 MG SR CAP PO SCH (21:45)
[2020-07-01] MEDS: IPRATROPIUM BROM 0.5MG/2.5ML IH SCH ×4 (02:20→20:10)
[2020-07-01 04:05] LABS: Absolute Lymphocytes (CBC) 0.2 K/uL (0.7-4.9); Basophils % 0.3 % (0-1.3); Hematocrit 40.8 % (39.6-49.0); Lymphocytes % 7.2 % (15.3-44.8); MPV 9.1 fL (7.6-11.3); RBC Red Blood Cell Count 4.13 M/uL (4.33-5.43)
[2020-07-01 04:27] LABS: Albumin 2.5 g/dL (3.4-5.0); Bilirubin Direct 0.1 mg/dL (0-0.2); Bilirubin Total 0.3 mg/dL (0.2-1.0); C-Reactive Protein 27.2 mg/L (<3.00); Ferritin 1571.9 ng/mL (26-388); Potassium 4.9 mmol/L (3.5-5.1); Protein, Total 5.7 g/dL (6.4-8.2)
[2020-07-01] MEDS ORDERED: NA CHLORIDE 0.9% 1,000 ML IV PRN (07:13)
[2020-07-01] MEDS ORDERED: MANNITOL 25% 12.5 GM/50 ML VIAL IV PRN (07:13)
[2020-07-01] MEDS: INSULIN -REGULAR HUMAN 50 UNIT/0.5 ML ML SQ SCH ×4 (07:30→21:00)
[2020-07-01] MEDS: METHYLPREDNISOLONE 125 MG INJ IV SCH ×2 (07:53→20:22)
[2020-07-01] MEDS: FAMOTIDINE 20 MG/2 ML VIAL IV SCH (07:54)
[2020-07-01] MEDS: VITAMIN D 1000 UNIT TAB PO SCH (07:54)
[2020-07-01] MEDS: ZINC SULFATE 220 MG CAP PO SCH (07:55)
[2020-07-01] MEDS: CALCITROL 0.25 MCG CAP PO SCH (07:55)
[2020-07-01] MEDS: THIAMINE HCL 100 MG TABLET PO SCH ×2 (07:56→20:23)
[2020-07-01] MEDS: CALCIUM ACETATE 667 MG TAB PO SCH ×3 (07:57→16:21)
[2020-07-01] MEDS: ASCORBIC ACID 500 MG TABLET PO SCH ×3 (07:57→20:22)
[2020-07-01] MEDS: AZITHROMYCIN 250 MG TAB PO SCH (07:58)
[2020-07-01] MEDS: ASPIRIN EC 81 MG TAB PO SCH (07:58)
[2020-07-01] MEDS: DULERA 100/5 (MOMETASONE/FORMOTEROL) INHALER IH SCH ×2 (07:59→21:00)
[2020-07-01] MEDS ORDERED: ALBUMIN HUMAN 25% 50 ML IV SCH (08:00)
[2020-07-01] MEDS: NEPRO SHAKE 237 ML CAN PO SCH ×3 (08:00→20:26)
--- NOTE | 2020-07-01 08:01 | EKG ---
Test Date: 2020-06-29 Test Time: 12:43:46 Tempering Oven Operator: DOMINGA MEASUREMENT RESULTS: Intervals: Rate: 72 DE: 150 QRSD: 132 QT: 392 QTc: 429 [place]: P: 75 DE: 150 QRS: 97 T: 82 INTERPRETIVE STATEMENTS: Normal sinus rhythm Possible Left atrial enlargement Right bundle branch block T wave abnormality, consider lateral ischemia Abnormal ECG Compared to ECG 03/17/2020 13:42:22 T-wave abnormality now present Possible ischemia now present Atrial premature complex(es) no longer present Electronically Signed On 07-01-20 07:58:21 CDT by Clay Mojica
[2020-07-01] MEDS ORDERED: EPOETIN ALFA 10,000 UNIT/ML VIAL SQ SCH (09:00)
[2020-07-01] MEDS ORDERED: VITAMIN D 1000 UNIT TAB PO SCH (09:00)
[2020-07-01] MEDS: Remdesivir 100 MG in NA CHLORIDE 0.9% 250 ML IV SCH (09:27)
--- NOTE | 2020-07-01 12:02 | P.PN ---
Subjective Date of Service: 07/01/20 Chief Complaint: Shortness of breath Patient currently on high-flow oxygen. Her oxygen is intermediate on her nostril and I suspect he has no needing all the oxygen being given. He is complaining of back pain. He is scheduled for hemodialysis today. Physical Examination - Vital Signs Temperature: 98.4 F Blood Pressure: 118/70 Pulse: 64 Respirations: 23 Pulse Ox (%): 90 - Physical Exam General: Alert, In no apparent distress HEENT: Mucous membr. moist/pink Neck: Supple, JVD not distended Respiratory: Other (Nonlabored breathing) Cardiovascular: No edema, Regular rate/rhythm, Normal S1 S2 Gastrointestinal: Soft and benign, Non-distended Musculoskeletal: No swelling Integumentary: No rashes Neurological: Normal strength at 5/5 x4 extr Assessment And Plan - Current Problems (Diagnosis) (1) Pneumonia due to COVID-19 virus Current Visit: Yes Status: Acute (2) COPD exacerbation Current Visit: Yes Status: Acute (3) End-stage renal disease on hemodialysis Current Visit: No Status: Acute (4) Thrombocytopenia Current Visit: Yes Status: Acute - Plan Continue IV Solumedrol Bronchodilators Vitamin supplementation- vitamin C, vitamin-D Zinc supplementation Patient started on Ivermectin. Monitor inflammatory markers. Pulmonary input appreciated. Patient started on Remdesivir. Wean down oxygen as tolerated. Patient has significant thrombocytopenia with increased risk of bleeding, so avoiding full anticoagulation Hemodialysis per Dr. Bear. Continue oral Zithromax.
[2020-07-01] MEDS: TAMSULOSIN 0.4 MG SR CAP PO SCH (20:23)
[2020-07-02] MEDS: IPRATROPIUM BROM 0.5MG/2.5ML IH SCH ×4 (02:20→19:42)
[2020-07-02] MEDS ORDERED: LORazepam 2 MG/ML VIAL IV ONE (02:47)
[2020-07-02] MEDS: NICOTINE 7 MG/PAT TD SCH ×2 (03:56→12:11)
[2020-07-02 04:05] LABS: Absolute Lymphocytes (CBC) 0.1 K/uL (0.7-4.9); Basophils % 0.2 % (0-1.3); Hematocrit 44.2 % (39.6-49.0); Lymphocytes % 2.8 % (15.3-44.8); MPV 8.6 fL (7.6-11.3); RBC Red Blood Cell Count 4.52 M/uL (4.33-5.43)
[2020-07-02 04:39] LABS: Albumin 2.7 g/dL (3.4-5.0); Bilirubin Direct 0.1 mg/dL (0-0.2); Bilirubin Total 0.3 mg/dL (0.2-1.0); C-Reactive Protein 20.4 mg/L (<3.00); Ferritin 1596.7 ng/mL (26-388); Phosphorus 3.9 mg/dL (2.5-4.9); Potassium 3.9 mmol/L (3.5-5.1)
[2020-07-02] MEDS ORDERED: POTASSIUM CL SA 10 MEQ TAB PO ONE (05:47)
[2020-07-02] MEDS: INSULIN -REGULAR HUMAN 50 UNIT/0.5 ML ML SQ SCH ×4 (07:30→20:00)
[2020-07-02] MEDS ORDERED: HALOPERIDOL LACT 5 MG/ML INJ IV ONE ×2 (07:51→10:39)
[2020-07-02] MEDS: CALCIUM ACETATE 667 MG TAB PO SCH ×3 (08:00→16:20)
[2020-07-02] MEDS: ASPIRIN EC 81 MG TAB PO SCH (08:41)
[2020-07-02] MEDS: DULERA 100/5 (MOMETASONE/FORMOTEROL) INHALER IH SCH ×2 (08:41→20:01)
[2020-07-02] MEDS: NEPRO SHAKE 237 ML CAN PO SCH ×3 (08:41→20:00)
[2020-07-02] MEDS: ZINC SULFATE 220 MG CAP PO SCH (08:42)
[2020-07-02] MEDS: AZITHROMYCIN 250 MG TAB PO SCH (08:42)
[2020-07-02] MEDS: CALCITROL 0.25 MCG CAP PO SCH (08:42)
[2020-07-02] MEDS: THIAMINE HCL 100 MG TABLET PO SCH ×2 (08:42→19:59)
[2020-07-02] MEDS: FAMOTIDINE 20 MG/2 ML VIAL IV SCH (08:42)
[2020-07-02] MEDS: ASCORBIC ACID 500 MG TABLET PO SCH ×3 (08:42→19:59)
[2020-07-02] MEDS: VITAMIN D 1000 UNIT TAB PO SCH (08:42)
[2020-07-02] MEDS: METHYLPREDNISOLONE 125 MG INJ IV SCH ×2 (08:47→19:59)
[2020-07-02] MEDS: Remdesivir 100 MG in NA CHLORIDE 0.9% 250 ML IV SCH (10:44)
[2020-07-02] MEDS: IVERMECTIN 3 MG TABLET PO SCH (13:02)
--- NOTE | 2020-07-02 15:10 | P.PN ---
Subjective Date of Service: 07/02/20 Chief Complaint: Shortness of breath Patient has been confused since last night. He has been taking off his oxygen, agitated. He completed hemodialysis yesterday. Physical Examination - Vital Signs Temperature: 97.6 F Blood Pressure: 118/68 Pulse: 95 Respirations: 20 Pulse Ox (%): 87 - Physical Exam General: In no apparent distress, Confused HEENT: Mucous membr. moist/pink Neck: JVD not distended Respiratory: Other (Nonlabored breathing) Cardiovascular: No edema, Regular rate/rhythm, Normal S1 S2 Gastrointestinal: Normal bowel sounds, Soft and benign, Non-distended, No tenderness Musculoskeletal: No swelling Integumentary: No rashes Neurological: Other (Confused, no focal motor deficit.) Assessment And Plan - Current Problems (Diagnosis) (1) Pneumonia due to COVID-19 virus Current Visit: Yes Status: Acute (2) COPD exacerbation Current Visit: Yes Status: Acute (3) End-stage renal disease on hemodialysis Current Visit: No Status: Acute (4) Thrombocytopenia Current Visit: Yes Status: Acute - Plan Confusion secondary to dementia with sundowning versus steroid induced psychosis Continue IV Solumedrol. Continue Bronchodilators Vitamin supplementation- vitamin C, vitamin-D Zinc supplementation Oxygen by nasal cannula as tolerated. Patient refused high-flow oxygen outright. Monitor inflammatory markers. He is on Remdesivir. Patient has significant thrombocytopenia with increased risk of bleeding, so avoiding full anticoagulation Hemodialysis per Dr. Bear. Continue oral Zithromax. Haldol IV p.r.n. for agitation and psychosis. Avoid Ativan as patient seems to be more agitated with it.
--- NOTE | 2020-07-02 17:56 | RAD REPORT ---
EXAM DESCRIPTION: Kayla Single View07/02/2020 5:39 pm CLINICAL HISTORY: Shortness breath COMPARISON: June 29, 2020 FINDINGS: Worsening in diffuse left lung opacities. Right lung appears clear of acute infiltrate. Heart is mildly enlarged. A central venous catheter remains place IMPRESSION: Worsening in diffuse opacities likely pneumonia
[2020-07-02] MEDS: TAMSULOSIN 0.4 MG SR CAP PO SCH (19:59)
[2020-07-03] MEDS: IPRATROPIUM BROM 0.5MG/2.5ML IH SCH ×4 (02:00→20:40)
[2020-07-03 04:26] LABS: Albumin 2.6 g/dL (3.4-5.0); Bilirubin Direct 0.2 mg/dL (0-0.2); Bilirubin Total 0.3 mg/dL (0.2-1.0); Phosphorus 5.5 mg/dL (2.5-4.9); Potassium 4.3 mmol/L (3.5-5.1); Protein, Total 5.5 g/dL (6.4-8.2)
[2020-07-03] MEDS: INSULIN -REGULAR HUMAN 50 UNIT/0.5 ML ML SQ SCH ×4 (07:30→21:00)
[2020-07-03] MEDS: CALCIUM ACETATE 667 MG TAB PO SCH ×4 (08:04→17:36)
[2020-07-03] MEDS: FAMOTIDINE 20 MG/2 ML VIAL IV SCH (08:04)
[2020-07-03] MEDS: VITAMIN D 1000 UNIT TAB PO SCH (08:04)
[2020-07-03] MEDS: ASCORBIC ACID 500 MG TABLET PO SCH ×3 (08:04→21:13)
[2020-07-03] MEDS: THIAMINE HCL 100 MG TABLET PO SCH ×2 (08:05→21:13)
[2020-07-03] MEDS: CALCITROL 0.25 MCG CAP PO SCH (08:05)
[2020-07-03] MEDS: METHYLPREDNISOLONE 125 MG INJ IV SCH ×2 (08:05→21:12)
[2020-07-03] MEDS: ZINC SULFATE 220 MG CAP PO SCH (08:05)
[2020-07-03] MEDS: AZITHROMYCIN 250 MG TAB PO SCH (08:06)
[2020-07-03] MEDS: DULERA 100/5 (MOMETASONE/FORMOTEROL) INHALER IH SCH ×2 (08:07→21:00)
[2020-07-03] MEDS: ASPIRIN EC 81 MG TAB PO SCH (08:07)
[2020-07-03] MEDS: NEPRO SHAKE 237 ML CAN PO SCH ×3 (08:07→21:00)
[2020-07-03] MEDS: NICOTINE 7 MG/PAT TD SCH (09:19)
[2020-07-03] MEDS: Remdesivir 100 MG in NA CHLORIDE 0.9% 250 ML IV SCH (09:19)
--- NOTE | 2020-07-03 12:50 | P.PN ---
Subjective Date of Service: 07/03/20 Chief Complaint: Respiratory failure from arnold virus Patient is not doing well is still very hypoxic short of breath Review of Systems General: Weakness Respiratory: Shortness of Breath Physical Examination - Vital Signs Temperature: 97.1 F Blood Pressure: 134/92 Pulse: 89 Respirations: 52 Pulse Ox (%): 89 Assessment & Plan - Problems (Diagnosis) (1) Pneumonia due to COVID-19 virus Current Visit: Yes Status: Acute Plan: Patient admitted with respiratory failure from arnold virus is diffuse interstitial changes left worse than the right still requiring high concentrations of oxygen no evidence of sepsis continue with bronchodilators steroids was a started patient on Eliquis gallardo has chronic renal failure change to BiPAP
--- NOTE | 2020-07-03 16:08 | P.PN ---
Subjective Date of Service: 07/03/20 Chief Complaint: Respiratory failure from arnold virus Patient reports more shortness of breath today. It's breathing is labored on high-flow oxygen. Not as agitated as before. Afebrile. . Physical Examination - Vital Signs Temperature: 97.1 F Blood Pressure: 134/92 Pulse: 89 Respirations: 52 Pulse Ox (%): 89 - Physical Exam General: Moderate distress, Other (Confused) HEENT: Other (High-flow oxygen) Neck: JVD not distended Respiratory: Other (Moderately labored breathing.) Cardiovascular: No edema, Regular rate/rhythm, Normal S1 S2 Gastrointestinal: Normal bowel sounds, Soft and benign, Non-distended, No tenderness Musculoskeletal: No swelling Integumentary: No rashes Neurological: Normal strength at 5/5 x4 extr Assessment And Plan - Current Problems (Diagnosis) (1) Pneumonia due to COVID-19 virus Current Visit: Yes Status: Acute (2) COPD exacerbation Current Visit: Yes Status: Acute (3) End-stage renal disease on hemodialysis Current Visit: No Status: Acute (4) Thrombocytopenia Current Visit: Yes Status: Acute - Plan Confusion secondary to dementia with sundowning versus steroid induced psychosis Continue IV Solumedrol. Continue Bronchodilators Vitamin supplementation- vitamin C, vitamin-D Zinc supplementation Switched to BiPAP Monitor inflammatory markers. He is on Remdesivir. Chest x-ray shows worsening infiltrate. Patient has significant thrombocytopenia with increased risk of bleeding, so avoiding full anticoagulation I discussed with Dr. Bear a trial of hemodialysis today to see if that improves his breathing. Continue oral Zithromax. Haldol IV p.r.n. for agitation and psychosis. Avoid Ativan as patient seems to be more agitated with it.
[2020-07-03] MEDS ORDERED: HALOPERIDOL LACT 5 MG/ML INJ IV ONE (17:00)
[2020-07-03] MEDS: EPOETIN ALFA 4,000 UNIT/ML VIAL SQ SCH (17:36)
--- NOTE | 2020-07-03 20:25 | P.PN ---
Date of Service: 07/03/20 Vital Signs Temp Pulse Resp BP Pulse Ox 97.1 F 89 52 H 134/92 H 89 L 07/03/20 16:09 07/03/20 16:09 07/03/20 16:09 07/03/20 16:09 07/03/20 16:09 Medications Acetaminophen (Acetaminophen 500 Mg Tab) 500 mg PO Q4HP PRN PRN Reason: TEMP > 100' F Albuterol Sulfate (Albuterol Inhaler 60 Puff/8 Gm) 2 puff IH Q6H PRN PRN Reason: SHORTNESS OF BREATH Last Admin: 07/03/20 06:38 Dose: 2 puff Documented by: Apixaban (Apixaban 2.5 Mg Tablet) 2.5 mg PO BID [facility] Ascorbic Acid (Ascorbic Acid 500 Mg Tablet) 1,000 mg PO TID [facility] Last Admin: 07/03/20 15:00 Dose: 1,000 mg Documented by: Aspirin (Aspirin Ec 81 Mg Tab) 162 mg PO DAILY [facility] Last Admin: 07/03/20 08:07 Dose: 162 mg Documented by: Azithromycin (Azithromycin 250 Mg Tab) 500 mg PO DAILY [facility] Last Admin: 07/03/20 08:06 Dose: 500 mg Documented by: Calcitriol (Calcitrol 0.25 Mcg Cap) 0.5 mcg PO DAILY [facility] Last Admin: 07/03/20 08:05 Dose: 0.5 mcg Documented by: Calcium Acetate (Calcium Acetate 667 Mg Tab) 667 mg PO TIDWM [facility] Last Admin: 07/03/20 17:36 Dose: 667 mg Documented by: Cholecalciferol (Vitamin D 1000 Unit Tab) 5,000 unit PO DAILY [facility] Last Admin: 07/03/20 08:04 Dose: 5,000 unit Documented by: Dextrose (D50w 25 Gm/50 Ml Vial) 12.5 gm IV PRN PRN; Protocol PRN Reason: HYPOGLYCEMIA Enteral Nutritional Formula (Nepro Shake 237 Ml Can) 240 ml PO TID [facility] Last Admin: 07/03/20 14:00 Dose: 240 ml Documented by: Epoetin Alxe (Epoetin Alex 4,000 Unit/Ml Vial) 4,000 unit SQ M,W,F [facility] Last Admin: 07/03/20 17:36 Dose: 4,000 unit Documented by: Famotidine (Famotidine 20 Mg/2 Ml Vial) 20 mg IV DAILY [facility]; Protocol Last Admin: 07/03/20 08:04 Dose: 20 mg Documented by: Glucagon (Glucagon 1 Mg/Vial) 1 mg IM 1X PRN; Protocol PRN Reason: HYPOGLYCEMIA Heparin Sodium (Porcine) (Heparin 1,000 Unit/Ml Vial) 6,000 unit IV EVERY HD PRN PRN Reason: AFTER EACH Last Admin: 07/01/20 19:48 Dose: 6,000 unit Documented by: Remdesivir 100 mg/ Sodium (Chloride) 250 mls @ 500 mls/hr IV DAILY [facility] Stop: 07/04/20 09:29 Last Admin: 07/03/20 09:19 Dose: 250 mls Documented by: Albumin Human (Albumin 25%) 50 mls @ 100 mls/hr IV EVERY HD [facility] Insulin Human Regular (Insulin -Regular Human 50 Unit/0.5 Ml Ml) 0 unit SQ ACHS [facility]; Protocol Last Admin: 07/03/20 16:26 Dose: Not Given Documented by: Ipratropium [place] (Ipratropium Brom 0.5mg/2.5ml) 0.5 mg IH [id number] [facility] Last Admin: 07/03/20 14:40 Dose: 0.5 mg Documented by: Mannitol (Mannitol 25% 12.5 Gm/50 Ml Vial) 12.5 gm IV EVERY HD PRN PRN Reason: Titrate to SBP (MUST DEFINE) Methylprednisolone Sodium Succinate (Methylprednisolone 125 Mg Inj) 80 mg IV BID [facility] Last Admin: 07/03/20 08:05 Dose: 80 mg Documented by: Nicotine (Nicotine 7 Mg/Pat) 7 mg TD DAILY [facility] Last Admin: 07/03/20 09:19 Dose: 7 mg Documented by: Ondansetron HCl (Ondansetron 4 Mg/2 Ml Vial) 4 mg IV Q6HP PRN PRN Reason: NAUSEA / VOMITING Sodium Chloride (Flush Normal Saline 10 Ml) 10 ml IV BID [facility] Last Admin: 07/03/20 08:08 Dose: 10 ml Documented by: Tamsulosin HCl (Tamsulosin 0.4 Mg Sr Cap) 0.4 mg PO BEDTIME [facility] Last Admin: 07/02/20 19:59 Dose: 0.4 mg Documented by: Thiamine HCl (Thiamine Hcl 100 Mg Tablet) 200 mg PO BID [facility] Last Admin: 07/03/20 08:05 Dose: 200 mg Documented by: Zinc Sulfate (Zinc Sulfate 220 Mg Cap) 220 mg PO DAILY [facility] Last Admin: 07/03/20 08:05 Dose: 220 mg Documented by: Microbiology Results 06/29/20 12:20 Blood - Blood Aerobic Blood Culture - Preliminary No growth in 24 hours. 06/29/20 12:20 Blood - Blood Anaerobic Blood Culture - Preliminary No growth in 24 hours. 06/29/20 12:25 Blood - Blood Aerobic Blood Culture - Preliminary No growth in 24 hours. 06/29/20 12:25 Blood - Blood Anaerobic Blood Culture - Preliminary No growth in 24 hours. Assessment/ Plan: Nephrology Worsening dyspnea today. Malaise and fatigue. No acute events overnight. Vitals, medications, blood work and imaging reviewed in the chart. General: In no apparent distress, Oriented x3, Cooperative HEENT: Atraumatic Neck: Supple Respiratory: Diminished Cardiovascular: No edema, Regular rate/rhythm Gastrointestinal: Soft and benign, Non-distended Musculoskeletal: No clubbing, No contractures Integumentary: No rashes, No cyanosis Neurological: Normal speech Blood work reviewed in the chart. Imagings Data: EXAM DESCRIPTION: RAD - Chest Single View - 06/29/2020 1:12 pm CLINICAL HISTORY: Cough;Dyspnea Chest pain. COMPARISON: Chest Single View dated 03/18/2020; Chest Single View dated 03/17/2020; Chest Pa And Lat (2 Views) dated 03/08/2019; Chest Pa And Lat (2 Views) dated 02/05/2019 FINDINGS: Portable technique limits examination quality. Prominent emphysematous changes are present. There is patchy opacity in the left lower lung suspicious for infiltrate/pneumonia. The heart is normal in size. Right-sided venous catheter tip in the SVC. Conclusions/Impression: A/P: Continue the current POC and Medications other than the changes listed. AM Labs PRN. Recommend daily weight. Please see the orders for complete details. ESRD -Acute HD ordered today due to worsening dyspnea Hyponatremia -HD TIW Acidosis -HD TIW HTN with CKD/ CHF -Monitor BP Diastolic CHF, A/C -Low sodium diet Moderate malnutrition -Continue Nepro shake TID Anemia in CKD -Continue Retacrit MITCHELL/ Secondary HyperPTH Hypocalcemia HyperPO4 -Continue Vitamin D3 -Continue Phoslo BPH with LUTS -Continue Flomax COVID-19 PNA with acute hypoxic respiratory failure -Continue Oxygen support -Continue steroids -Continue remdesevir
[2020-07-03] MEDS: APIXABAN 2.5 MG TABLET PO SCH (21:13)
[2020-07-03] MEDS: TAMSULOSIN 0.4 MG SR CAP PO SCH (21:14)
[2020-07-04] MEDS: IPRATROPIUM BROM 0.5MG/2.5ML IH SCH ×4 (02:20→20:45)
[2020-07-04] MEDS ORDERED: HALOPERIDOL LACT 5 MG/ML INJ IV PRN (03:12)
[2020-07-04 05:44] LABS: Absolute Lymphocytes (CBC) 0.1 K/uL (0.7-4.9); Basophils % 0.1 % (0-1.3); Hematocrit 40.1 % (39.6-49.0); Lymphocytes % 1.2 % (15.3-44.8); MPV 9.9 fL (7.6-11.3); RBC Red Blood Cell Count 4.12 M/uL (4.33-5.43)
[2020-07-04 05:58] LABS: Albumin 2.9 g/dL (3.4-5.0); Bilirubin Direct 0.2 mg/dL (0-0.2); Bilirubin Total 0.5 mg/dL (0.2-1.0); C-Reactive Protein 26.2 mg/L (<3.00); Ferritin 904.8 ng/mL (26-388); Phosphorus 4.3 mg/dL (2.5-4.9); Potassium 4.2 mmol/L (3.5-5.1); Protein, Total 6.1 g/dL (6.4-8.2)
[2020-07-04] MEDS: MORPHINE 2 MG/ML SYR IV PRN ×3 (06:46→18:09)
[2020-07-04] MEDS: INSULIN -REGULAR HUMAN 50 UNIT/0.5 ML ML SQ SCH ×4 (07:30→21:00)
[2020-07-04] MEDS ORDERED: HALOPERIDOL LACT 5 MG/ML INJ IV ONE (07:44)
[2020-07-04] MEDS: ARFORMOTEROL TARTRATE 15 MCG/2 ML VIAL.NEB NEB SCH ×2 (08:47→20:45)
[2020-07-04] MEDS: NEPRO SHAKE 237 ML CAN PO SCH ×3 (09:00→21:00)
[2020-07-04] MEDS: CALCIUM ACETATE 667 MG TAB PO SCH ×3 (10:39→17:00)
[2020-07-04] MEDS: FAMOTIDINE 20 MG/2 ML VIAL IV SCH (10:39)
[2020-07-04] MEDS: THIAMINE HCL 100 MG TABLET PO SCH ×2 (10:39→21:00)
[2020-07-04] MEDS: ASPIRIN EC 81 MG TAB PO SCH (10:39)
[2020-07-04] MEDS: ZINC SULFATE 220 MG CAP PO SCH (10:39)
[2020-07-04] MEDS: APIXABAN 2.5 MG TABLET PO SCH ×2 (10:40→21:00)
[2020-07-04] MEDS: ASCORBIC ACID 500 MG TABLET PO SCH ×3 (10:40→21:00)
[2020-07-04] MEDS: CALCITROL 0.25 MCG CAP PO SCH (10:40)
[2020-07-04] MEDS: VITAMIN D 1000 UNIT TAB PO SCH (10:40)
[2020-07-04] MEDS: METHYLPREDNISOLONE 125 MG INJ IV SCH ×2 (10:41→22:03)
[2020-07-04] MEDS: NICOTINE 7 MG/PAT TD SCH (10:41)
[2020-07-04 10:50] LABS: White Blood Cell Scan OK (OK)
[2020-07-04 10:51] LABS: Blood Morphology Comment NOT SEEN (NOT SEEN); Platelet Estimate DECR
[2020-07-04] MEDS: Remdesivir 100 MG in NA CHLORIDE 0.9% 250 ML IV SCH (12:05)
[2020-07-04] MEDS ORDERED: WATER FOR INJ,STERILE 10 ML IM PRN (12:28)
--- NOTE | 2020-07-04 12:28 | P.PN ---
Subjective Date of Service: 07/04/20 Chief Complaint: Respiratory failure from arnold virus Not doing well patient is very uncooperative agitated pulling off his oxygen hypoxic Review of Systems Respiratory: Cough, Shortness of Breath Physical Examination - Vital Signs Temperature: 98.4 F Blood Pressure: 123/84 Pulse: 94 Respirations: 22 Pulse Ox (%): 94 Assessment & Plan - Problems (Diagnosis) (1) Pneumonia due to COVID-19 virus Current Visit: Yes Status: Acute Plan: Patient admitted with pneumonia due to arnold virus continue with steroids I have added more bronchodilators on a scheduled basis Dc inhalers chronic renal failure labs reviewed white count is normal prognosis poor currently on 100% FiO2
[2020-07-04] MEDS: D50W 25 GM/50 ML VIAL IV PRN (12:42)
[2020-07-04] MEDS: ZIPRASIDONE MESYLA 20 MG/VIAL IM PRN (12:49)
[2020-07-04] MEDS ORDERED: NS 0.9% VIAL 10 ML ONE (12:57)
--- NOTE | 2020-07-04 13:06 | P.PN ---
Subjective Date of Service: 07/04/20 Chief Complaint: Respiratory failure from arnold virus Subjective: No new changes (continued with some confusion/agitation overnight, not combative, but removes oxygen/nasal cannula, tries to get out of bed) Review of Systems 10-point ROS is otherwise unremarkable Physical Examination - Vital Signs Temperature: 98.4 F Blood Pressure: 123/84 Pulse: 94 Respirations: 22 Pulse Ox (%): 94 - Studies Microbiology Data (last 24 hrs): 06/29/20 12:20 Blood - Blood Aerobic Blood Culture - Final No growth in 5 days. 06/29/20 12:20 Blood - Blood Anaerobic Blood Culture - Final No growth in 5 days. 06/29/20 12:25 Blood - Blood Aerobic Blood Culture - Final No growth in 5 days. 06/29/20 12:25 Blood - Blood Anaerobic Blood Culture - Final No growth in 5 days. Assessment & Plan Physician Review Additional Text: Physical Exam General: AAOx3, slow to respond, with some confusion HEENT: normal conjunctiva, sclera anicteric Respiratory: mildly labored respirations on HFNC Cardiovascular: No edema, Regular rate/rhythm, Normal S1 S2 Gastrointestinal: Normal bowel sounds, Soft and benign, Non-distended, No tenderness Musculoskeletal: No swelling Integumentary: No rashes Problem List acute hypoxemic respiratory failure secondary to COVID-19 pneumonia acute on chronic COPD exacerbation ESRD on hemodialysis Thrombocytopenia acute delirium Confusion secondary to dementia with sundowning vs steroid induced psychosis vs delirium continue steroids, bronchodilators, vitamin supplementation; Pulm following. s/p remdesevir Monitor inflammatory markers. Patient has significant thrombocytopenia with increased risk of bleeding, improving nephrology consulted for hemodialysis possible delirium, ativan made patient more agitated. Haldol didn't seem to have much effect will try Solo Dispo: guarded prognosis, anticipate hospitalization > 2 days Time Spent Managing Pts Care (In Minutes): 35
[2020-07-04 16:47] LABS: Arterial Blood Carboxyhemoglob 0.5 % (0-1.5); Blood Gas Oxyhemoglobin 88.9 % (94-97); Blood O2 Saturation 90.3 % (92-98.5)
[2020-07-04] MEDS: DEXTROSE 10%-WATER 500 ML IV SCH (17:11)
[2020-07-04] MEDS: TAMSULOSIN 0.4 MG SR CAP PO SCH (21:00)
--- NOTE | 2020-07-04 21:22 | P.PN ---
Date of Service: 07/04/20 Vital Signs Temp Pulse Resp BP Pulse Ox 97.9 F 89 30 H 117/60 90 L 07/04/20 16:00 07/04/20 16:00 07/04/20 18:39 07/04/20 16:00 07/04/20 18:39 Medications Acetaminophen (Acetaminophen 500 Mg Tab) 500 mg PO Q4HP PRN PRN Reason: TEMP > 100' F Apixaban (Apixaban 2.5 Mg Tablet) 2.5 mg PO BID [facility] Last Admin: 07/04/20 10:40 Dose: 2.5 mg Documented by: Arformoterol Tartrate (Arformoterol Tartrate 15 Mcg/2 Ml Vial.Neb) 15 mcg NEB BIDRESP [facility] Last Admin: 07/04/20 08:47 Dose: 15 mcg Documented by: Ascorbic Acid (Ascorbic Acid 500 Mg Tablet) 1,000 mg PO TID [facility] Last Admin: 07/04/20 14:00 Dose: Not Given Documented by: Aspirin (Aspirin Ec 81 Mg Tab) 162 mg PO DAILY [facility] Last Admin: 07/04/20 10:39 Dose: 162 mg Documented by: Calcitriol (Calcitrol 0.25 Mcg Cap) 0.5 mcg PO DAILY [facility] Last Admin: 07/04/20 10:40 Dose: 0.5 mcg Documented by: Calcium Acetate (Calcium Acetate 667 Mg Tab) 667 mg PO TIDWM [facility] Last Admin: 07/04/20 17:00 Dose: Not Given Documented by: Cholecalciferol (Vitamin D 1000 Unit Tab) 5,000 unit PO DAILY [facility] Last Admin: 07/04/20 10:40 Dose: 5,000 unit Documented by: Dextrose (D50w 25 Gm/50 Ml Vial) 12.5 gm IV PRN PRN; Protocol PRN Reason: HYPOGLYCEMIA Last Admin: 07/04/20 12:42 Dose: 12.5 gm Documented by: Enteral Nutritional Formula (Nepro Shake 237 Ml Can) 240 ml PO TID [facility] Last Admin: 07/04/20 14:00 Dose: Not Given Documented by: Epoetin Alex (Epoetin Alex 4,000 Unit/Ml Vial) 4,000 unit SQ M,W,F [facility] Last Admin: 07/03/20 17:36 Dose: 4,000 unit Documented by: Famotidine (Famotidine 20 Mg/2 Ml Vial) 20 mg IV DAILY [facility]; Protocol Last Admin: 07/04/20 10:39 Dose: 20 mg Documented by: Glucagon (Glucagon 1 Mg/Vial) 1 mg IM 1X PRN; Protocol PRN Reason: HYPOGLYCEMIA Heparin Sodium (Porcine) (Heparin 1,000 Unit/Ml Vial) 6,000 unit IV EVERY HD PRN PRN Reason: AFTER EACH Last Admin: 07/01/20 19:48 Dose: 6,000 unit Documented by: Albumin Human (Albumin 25%) 50 mls @ 100 mls/hr IV EVERY HD [facility] Dextrose (D10w 500 Ml Ivpb) 500 mls @ 50 mls/hr IV .Q10H [facility] Last Admin: 07/04/20 17:11 Dose: 500 mls Documented by: Insulin Human Regular (Insulin -Regular Human 50 Unit/0.5 Ml Ml) 0 unit SQ ACHS [facility]; Protocol Last Admin: 07/04/20 16:30 Dose: Not Given Documented by: Ipratropium [place] (Ipratropium Brom 0.5mg/2.5ml) 0.5 mg IH [id number] [facility] Last Admin: 07/04/20 14:04 Dose: 0.5 mg Documented by: Mannitol (Mannitol 25% 12.5 Gm/50 Ml Vial) 12.5 gm IV EVERY HD PRN PRN Reason: Titrate to SBP (MUST DEFINE) Methylprednisolone Sodium Succinate (Methylprednisolone 125 Mg Inj) 80 mg IV BID [facility] Last Admin: 07/04/20 10:41 Dose: 80 mg Documented by: Morphine Sulfate (Morphine 2 Mg/Ml Syr) 2 mg IV Q4H PRN PRN Reason: Pain scale 5-7 (Moderate) Last Admin: 07/04/20 18:09 Dose: 2 mg Documented by: Nicotine (Nicotine 7 Mg/Pat) 7 mg TD DAILY [facility] Last Admin: 07/04/20 10:41 Dose: 7 mg Documented by: Ondansetron HCl (Ondansetron 4 Mg/2 Ml Vial) 4 mg IV Q6HP PRN PRN Reason: NAUSEA / VOMITING Sodium Chloride (Flush Normal Saline 10 Ml) 10 ml IV BID [facility] Last Admin: 07/04/20 10:41 Dose: 10 ml Documented by: Sterile Water (Water For Inj,Sterile 10 Ml) 1.2 ml IM UD PRN PRN Reason: DILUTION OF MED Tamsulosin HCl (Tamsulosin 0.4 Mg Sr Cap) 0.4 mg PO BEDTIME [facility] Last Admin: 07/03/20 21:14 Dose: 0.4 mg Documented by: Thiamine HCl (Thiamine Hcl 100 Mg Tablet) 200 mg PO BID [facility] Last Admin: 07/04/20 10:39 Dose: 200 mg Documented by: Zinc Sulfate (Zinc Sulfate 220 Mg Cap) 220 mg PO DAILY [facility] Last Admin: 07/04/20 10:39 Dose: 220 mg Documented by: Ziprasidone (Ziprasidone Mesyla 20 Mg/Vial) 10 mg IM Q12H PRN PRN Reason: AGITATION Last Admin: 07/04/20 12:49 Dose: 10 mg Documented by: Microbiology Results 06/29/20 12:20 Blood - Blood Aerobic Blood Culture - Final No growth in 5 days. 06/29/20 12:20 Blood - Blood Anaerobic Blood Culture - Final No growth in 5 days. 06/29/20 12:25 Blood - Blood Aerobic Blood Culture - Final No growth in 5 days. 06/29/20 12:25 Blood - Blood Anaerobic Blood Culture - Final No growth in 5 days. Assessment/ Plan: Nephrology Persistent dyspnea with agitation Malaise and fatigue. No acute events overnight. Vitals, medications, blood work and imaging reviewed in the chart. General: In no apparent distress, Oriented x3, Cooperative HEENT: Atraumatic Neck: Supple Respiratory: Diminished Cardiovascular: No edema, Regular rate/rhythm Gastrointestinal: Soft and benign, Non-distended Musculoskeletal: No clubbing, No contractures Integumentary: No rashes, No cyanosis Neurological: Normal speech Blood work reviewed in the chart. Imagings Data: EXAM DESCRIPTION: RAD - Chest Single View - 06/29/2020 1:12 pm CLINICAL HISTORY: Cough;Dyspnea Chest pain. COMPARISON: Chest Single View dated 03/18/2020; Chest Single View dated 03/17/2020; Chest Pa And Lat (2 Views) dated 03/08/2019; Chest Pa And Lat (2 Views) dated 02/05/2019 FINDINGS: Portable technique limits examination quality. Prominent emphysematous changes are present. There is patchy opacity in the left lower lung suspicious for infiltrate/pneumonia. The heart is normal in size. Right-sided venous catheter tip in the SVC. Conclusions/Impression: A/P: Continue the current POC and Medications other than the changes listed. AM Labs PRN. Recommend daily weight. Please see the orders for complete details. ESRD -Acute HD today Hyponatremia -HD TIW Acidosis -HD TIW HTN with CKD/ CHF -Monitor BP Diastolic CHF, A/C -Low sodium diet Moderate malnutrition -Continue Nepro shake TID Anemia in CKD -Continue Retacrit MITCHELL/ Secondary HyperPTH Hypocalcemia HyperPO4 -Continue Vitamin D3 -Continue Phoslo BPH with LUTS -Continue Flomax COVID-19 PNA with acute hypoxic respiratory failure -Continue Oxygen support -Continue steroids -Continue remdesevir
[2020-07-05] MEDS: MORPHINE 2 MG/ML SYR IV PRN (00:49)
[2020-07-05] MEDS: DEXTROSE 10%-WATER 500 ML IV SCH ×4 (01:57→21:30)
[2020-07-05] MEDS: ZIPRASIDONE MESYLA 20 MG/VIAL IM PRN (02:25)
[2020-07-05] MEDS ORDERED: WATER FOR INJ,STERILE 10 ML ONE (02:42)
[2020-07-05] MEDS ORDERED: NA CHLORIDE 0.9% 250 ML IV ONE ×3 (03:12→12:14)
[2020-07-05] MEDS: IPRATROPIUM BROM 0.5MG/2.5ML IH SCH ×4 (03:30→20:00)
[2020-07-05] MEDS ORDERED: NA CHLORIDE 0.9% 250 ML ONE (03:34)
[2020-07-05 05:52] LABS: Albumin 2.3 g/dL (3.4-5.0); Ferritin 887.8 ng/mL (26-388); Phosphorus 3.9 mg/dL (2.5-4.9); Potassium 4.7 mmol/L (3.5-5.1)
[2020-07-05 06:13] VITALS: BMI 17.1
[2020-07-05 06:30] LABS: Arterial Blood Carboxyhemoglob 0.6 % (0-1.5); Blood Gas Oxyhemoglobin 80.3 % (94-97); Blood O2 Saturation 81.7 % (92-98.5)
[2020-07-05] MEDS: INSULIN -REGULAR HUMAN 50 UNIT/0.5 ML ML SQ SCH ×4 (07:30→21:00)
[2020-07-05] MEDS: D50W 25 GM/50 ML VIAL IV PRN (07:48)
[2020-07-05] MEDS: NICOTINE 7 MG/PAT TD SCH (07:49)
[2020-07-05] MEDS: FAMOTIDINE 20 MG/2 ML VIAL IV SCH (07:50)
[2020-07-05] MEDS: METHYLPREDNISOLONE 125 MG INJ IV SCH ×3 (07:50→21:00)
[2020-07-05] MEDS: CALCIUM ACETATE 667 MG TAB PO SCH ×3 (08:00→15:39)
[2020-07-05] MEDS: ARFORMOTEROL TARTRATE 15 MCG/2 ML VIAL.NEB NEB SCH ×2 (08:30→20:00)
[2020-07-05] MEDS: ZINC SULFATE 220 MG CAP PO SCH (09:00)
[2020-07-05] MEDS: ASCORBIC ACID 500 MG TABLET PO SCH ×3 (09:00→21:00)
[2020-07-05] MEDS: CALCITROL 0.25 MCG CAP PO SCH (09:00)
[2020-07-05] MEDS: THIAMINE HCL 100 MG TABLET PO SCH ×2 (09:00→21:00)
[2020-07-05] MEDS: VITAMIN D 1000 UNIT TAB PO SCH (09:00)
[2020-07-05] MEDS: ASPIRIN EC 81 MG TAB PO SCH (09:00)
[2020-07-05] MEDS: APIXABAN 2.5 MG TABLET PO SCH ×2 (09:00→21:00)
[2020-07-05] MEDS: NEPRO SHAKE 237 ML CAN PO SCH ×3 (09:00→21:00)
[2020-07-05] MEDS ORDERED: ALBUMIN HUMAN 25% 50 ML IV ONE (10:25)
--- NOTE | 2020-07-05 11:54 | RAD REPORT ---
EXAM DESCRIPTION: Kayla Single View07/05/2020 11:49 am CLINICAL HISTORY: Chest pain COMPARISON: July 02, 2020 FINDINGS: Moderate right upper lobe consolidation has developed. Mild worsening in extensive left lung opacities. Heart is normal size. Central venous catheter in place IMPRESSION: Moderate right lung consolidation and worsening in left lung opacities likely pneumonia
[2020-07-05] MEDS ORDERED: MIDAZOLAM HCL 2 MG/2 ML INJ IV PRN (12:36)
[2020-07-05] MEDS ORDERED: LORazepam 2 MG/ML VIAL IV PRN (12:36)
[2020-07-05] MEDS ORDERED: NA CHLORIDE 0.9% 250 ML IV PRN (12:36)
[2020-07-05] MEDS ORDERED: FENTANYL CITR 100 MCG/2 ML IV PRN (12:36)
[2020-07-05] MEDS ORDERED: propofoL 1,000 MG/100 ML VIAL IV PRN (12:36)
--- NOTE | 2020-07-05 12:40 | P.PN ---
Subjective Date of Service: 07/05/20 Chief Complaint: Respiratory failure from arnold virus Not doing well his condition is deteriorating chest x-ray looks worse is very hypoxic agitated Review of Systems is unable to be obtained Physical Examination - Vital Signs Temperature: 99.7 F Blood Pressure: 86/60 Pulse: 103 Respirations: 21 Pulse Ox (%): 96 - Physical Exam General: Delirious, Unresponsive Respiratory: Crackles/rales Cardiovascular: No edema, Regular rate/rhythm - Studies Microbiology Data (last 24 hrs): 06/29/20 12:20 Blood - Blood Aerobic Blood Culture - Final No growth in 5 days. 06/29/20 12:20 Blood - Blood Anaerobic Blood Culture - Final No growth in 5 days. 06/29/20 12:25 Blood - Blood Aerobic Blood Culture - Final No growth in 5 days. 06/29/20 12:25 Blood - Blood Anaerobic Blood Culture - Final No growth in 5 days. Assessment & Plan - Problems (Diagnosis) (1) Pneumonia due to COVID-19 virus Current Visit: Yes Status: Acute Plan: Respiratory failure condition is worsening chest x-ray looks worse the pressure is low discuss with the hospitalist proceed to intubation and vasopressors vent protocol labs reviewed prognosis very poor labs x-rays reviewed pre Solu-Medrol decrease dose of aspirin
[2020-07-05] MEDS ORDERED: NOREPINEPHRINE 4 MG in D5W 250 ML IV PRN (12:55)
[2020-07-05] MEDS ORDERED: RSI MEDICATION KIT IV ONE (13:35)
[2020-07-05] MEDS ORDERED: propofoL 1,000 MG/100 ML VIAL IV ONE (13:35)
[2020-07-05] MEDS ORDERED: NOREPINEPHRINE 8 MG in D5W 250 ML IV PRN (14:21)
--- NOTE | 2020-07-05 14:41 | RAD REPORT ---
EXAM DESCRIPTION: RAD - Chest Single View - 07/05/2020 2:32 pm CLINICAL HISTORY: intubation and gastric tube placement Chest pain. COMPARISON: Chest Single View dated 07/05/2020; Chest Single View dated 07/02/2020; Chest Single View dated 06/29/2020; Chest Single View dated 03/18/2020 FINDINGS: Portable technique limits examination quality. Enteric tube is present coiled in the stomach. Endotracheal tube tip is somewhat difficult to discern but may be about 1 cm above the level of the aortic arch. Right-sided venous catheter has tip in the SVC.
[2020-07-05] MEDS ORDERED: AMIODARONE HCL 150 MG in D5W 100 ML IV STA (15:27)
[2020-07-05] MEDS ORDERED: AMIODARONE HCL 900 MG in Dextrose 5%-Water 482 ML IV SCH (16:00)
[2020-07-05] MEDS ORDERED: SUCCINYLCHOLINE 20 MG/ML (10 ML) IV ONE (16:47)
[2020-07-05] MEDS: EPOETIN ALFA 4,000 UNIT/ML VIAL SQ SCH (17:00)
--- NOTE | 2020-07-05 19:54 | P.PN ---
Subjective Date of Service: 07/05/20 Chief Complaint: Respiratory failure from arnold virus Subjective: Worsening (abg with significant hypoxia, pt more lethargic this morning, hypotensive, minimal responsiveness . worsening inflammatory markers pulm recommended intubation. patient with tachycardia and worsening hypotension) Review of Systems 10-point ROS is otherwise unremarkable Physical Examination - Vital Signs Temperature: 100.0 F Blood Pressure: 95/58 Pulse: 121 Respirations: 29 Pulse Ox (%): 96 Assessment & Plan Physician Review Additional Text: Physical Exam General: lethargic, minimally responsive HEENT: normal conjunctiva, sclera anicteric Respiratory: mildly labored on BIPAP 100% fio2 Cardiovascular: No edema, sinus tachycardia Gastrointestinal: Soft and benign, Non-distended, No tenderness Musculoskeletal: No swelling Integumentary: No rashes Problem List acute hypoxemic respiratory failure secondary to COVID-19 pneumonia acute on chronic COPD exacerbation ESRD on hemodialysis Thrombocytopenia acute delirium Confusion secondary to dementia with sundowning vs steroid induced psychosis vs delirium continue steroids, bronchodilators, vitamin supplementation; Pulm following. s/p remdesevir CRP worsening Patient has significant thrombocytopenia with increased risk of bleeding nephrology consulted for hemodialysis possible delirium, ativan made patient more agitated. Haldol didn't seem to have much effect, started on Geodon on 07/04 received small bolus overnight for hypotension, started on levophed this afternoon, then intubated today, with worsening tachycardia and hypotension patient underwent synchronized cardioversion x1 with improvement in heart rate/rhythm. required multiple pressors. started on amiodarone family came to bedside - would like patient to be DNR, otherwise continue maximum treatment, would like to see how he does "over the next week". patient without gag reflex, has not received sedative since ~3am Dispo: poor prognosis, unlikely to recover Time Spent Managing Pts Care (In Minutes): 35
[2020-07-05] MEDS: TAMSULOSIN 0.4 MG SR CAP PO SCH (21:00)
[2020-07-05] MEDS ORDERED: DOPAMINE/D5W 400 MG/250 ML BAG IV PRN (21:58)
--- NOTE | 2020-07-05 22:46 | P.PN ---
Date of Service: 07/05/20 Vital Signs Temp Pulse Resp BP Pulse Ox 96.6 F L 115 H 24 H 76/60 L 96 07/05/20 20:00 07/05/20 20:30 07/05/20 20:30 07/05/20 20:30 07/05/20 19:54 Medications Acetaminophen (Acetaminophen 500 Mg Tab) 500 mg PO Q4HP PRN PRN Reason: TEMP > 100' F Apixaban (Apixaban 2.5 Mg Tablet) 2.5 mg PO BID [facility] Last Admin: 07/05/20 09:00 Dose: Not Given Documented by: Arformoterol Tartrate (Arformoterol Tartrate 15 Mcg/2 Ml Vial.Neb) 15 mcg NEB BIDRESP [facility] Last Admin: 07/05/20 20:00 Dose: Not Given Documented by: Ascorbic Acid (Ascorbic Acid 500 Mg Tablet) 1,000 mg PO TID [facility] Last Admin: 07/05/20 14:00 Dose: Not Given Documented by: Aspirin (Aspirin Ec 81 Mg Tab) 81 mg PO DAILY [facility] Calcitriol (Calcitrol 0.25 Mcg Cap) 0.5 mcg PO DAILY [facility] Last Admin: 07/05/20 09:00 Dose: Not Given Documented by: Calcium Acetate (Calcium Acetate 667 Mg Tab) 667 mg PO TIDWM [facility] Last Admin: 07/05/20 15:39 Dose: Not Given Documented by: Cholecalciferol (Vitamin D 1000 Unit Tab) 5,000 unit PO DAILY [facility] Last Admin: 07/05/20 09:00 Dose: Not Given Documented by: Dextrose (D50w 25 Gm/50 Ml Vial) 12.5 gm IV PRN PRN; Protocol PRN Reason: HYPOGLYCEMIA Last Admin: 07/05/20 07:48 Dose: 12.5 gm Documented by: Enteral Nutritional Formula (Nepro Shake 237 Ml Can) 240 ml PO TID [facility] Last Admin: 07/05/20 14:00 Dose: Not Given Documented by: Epoetin Alex (Epoetin Alex 4,000 Unit/Ml Vial) 4,000 unit SQ M,W,F [facility] Last Admin: 07/05/20 17:00 Dose: Not Given Documented by: Famotidine (Famotidine 20 Mg/2 Ml Vial) 20 mg IV DAILY [facility]; Protocol Last Admin: 07/05/20 07:50 Dose: 20 mg Documented by: Fentanyl Citrate (Fentanyl Citr 100 Mcg/2 Ml) 25 mcg IV Q4HP PRN PRN Reason: Pain scale 8-10 (Severe) Glucagon (Glucagon 1 Mg/Vial) 1 mg IM 1X PRN; Protocol PRN Reason: HYPOGLYCEMIA Heparin Sodium (Porcine) (Heparin 1,000 Unit/Ml Vial) 6,000 unit IV EVERY HD PRN PRN Reason: AFTER EACH Last Admin: 07/01/20 19:48 Dose: 6,000 unit Documented by: Albumin Human (Albumin 25%) 50 mls @ 100 mls/hr IV EVERY HD [facility]IQUE Dextrose (D10w 500 Ml Ivpb) 500 mls @ 75 mls/hr IV .Q6H40M MONIQUE Last Admin: 07/05/20 14:05 Dose: 500 mls Documented by: Propofol (Diprivan) 1,000 mg in 100 mls @ 0 mls/hr IV PRN PRN; Protocol PRN Reason: SEDATION Sodium Chloride (Sodium Chloride) 250 mls @ 999 mls/hr IV Q15M PRN PRN Reason: HYPOTENSION Norepinephrine Bitartrate 8 mg (/ Dextrose) 258 mls @ 0 mls/hr IV PRN PRN; Protocol PRN Reason: Hemodynamic Parameters Last Admin: 07/05/20 20:35 Dose: 258 mls Documented by: Phenylephrine HCl 50 mg/ (Dextrose) 250 mls @ 0 mls/hr IV PRN PRN; Protocol PRN Reason: BP PARAMETERS Last Admin: 07/05/20 20:35 Dose: 250 mls Documented by: Amiodarone HCl 900 mg/ (Dextrose) 500 mls @ 0 mls/hr IV CONT MONIQUE; Protocol Last Admin: 07/05/20 15:36 Dose: 500 mls Documented by: Dopamine HCl/Dextrose (Dopamine 400 Mg/250 Ml D5w (Premix)) 400 mg in 250 mls @ 0 mls/hr IV PRN PRN; Protocol PRN Reason: Hemodynamic Parameters Last Admin: 07/05/20 22:28 Dose: 250 mls Documented by: Insulin Human Regular (Insulin -Regular Human 50 Unit/0.5 Ml Ml) 0 unit SQ ACHS MONIQUE; Protocol Last Admin: 07/05/20 15:36 Dose: Not Given Documented by: Ipratropium [place] (Ipratropium Brom 0.5mg/2.5ml) 0.5 mg IH [id number] [facility] Last Admin: 07/05/20 20:00 Dose: Not Given Documented by: Lorazepam (Lorazepam 2 Mg/Ml Vial) 2 mg IV Q2HP PRN PRN Reason: SEDATION Mannitol (Mannitol 25% 12.5 Gm/50 Ml Vial) 12.5 gm IV EVERY HD PRN PRN Reason: Titrate to SBP (MUST DEFINE) Methylprednisolone Sodium Succinate (Methylprednisolone 125 Mg Inj) 120 mg IV TID [facility] Last Admin: 07/05/20 14:43 Dose: 120 mg Documented by: Midazolam HCl (Midazolam Hcl 2 Mg/2 Ml Inj) 2 mg IV Q2HP PRN PRN Reason: SEDATION Morphine Sulfate (Morphine 2 Mg/Ml Syr) 2 mg IV Q4H PRN PRN Reason: Pain scale 5-7 (Moderate) Last Admin: 07/05/20 00:49 Dose: 2 mg Documented by: Nicotine (Nicotine 7 Mg/Pat) 7 mg TD DAILY [facility] Last Admin: 07/05/20 07:49 Dose: 7 mg Documented by: Ondansetron HCl (Ondansetron 4 Mg/2 Ml Vial) 4 mg IV Q6HP PRN PRN Reason: NAUSEA / VOMITING Sodium Chloride (Flush Normal Saline 10 Ml) 10 ml IV BID [facility] Last Admin: 07/05/20 07:49 Dose: 10 ml Documented by: Sterile Water (Water For Inj,Sterile 10 Ml) 1.2 ml IM UD PRN PRN Reason: DILUTION OF MED Last Admin: 07/05/20 02:52 Dose: 1.2 ml Documented by: Tamsulosin HCl (Tamsulosin 0.4 Mg Sr Cap) 0.4 mg PO BEDTIME [facility] Last Admin: 07/04/20 21:00 Dose: Not Given Documented by: Thiamine HCl (Thiamine Hcl 100 Mg Tablet) 200 mg PO BID [facility] Last Admin: 07/05/20 09:00 Dose: Not Given Documented by: Zinc Sulfate (Zinc Sulfate 220 Mg Cap) 220 mg PO DAILY [facility] Last Admin: 07/05/20 09:00 Dose: Not Given Documented by: Ziprasidone (Ziprasidone Mesyla 20 Mg/Vial) 10 mg IM Q12H PRN PRN Reason: AGITATION Last Admin: 07/05/20 02:25 Dose: 10 mg Documented by: Microbiology Results 06/29/20 12:20 Blood - Blood Aerobic Blood Culture - Final No growth in 5 days. 06/29/20 12:20 Blood - Blood Anaerobic Blood Culture - Final No growth in 5 days. 06/29/20 12:25 Blood - Blood Aerobic Blood Culture - Final No growth in 5 days. 06/29/20 12:25 Blood - Blood Anaerobic Blood Culture - Final No growth in 5 days. Assessment/ Plan: Nephrology Limited IH/ ROS due to AMS. Intubated earlier today due to acute respiratory failure. Vitals, medications, blood work and imaging reviewed in the chart. General: Resp distress, Unresponsive HEENT: Atraumatic Neck: Supple Respiratory: Diminished Cardiovascular: No edema, Regular rate/rhythm Gastrointestinal: Soft and benign, Non-distended Musculoskeletal: No clubbing, No contractures Integumentary: No rashes, No cyanosis Neurological: No speech Patient care >30min Blood work reviewed in the chart. Imagings Data: EXAM DESCRIPTION: RAD - Chest Single View - 06/29/2020 1:12 pm CLINICAL HISTORY: Cough;Dyspnea Chest pain. COMPARISON: Chest Single View dated 03/18/2020; Chest Single View dated 03/17/2020; Chest Pa And Lat (2 Views) dated 03/08/2019; Chest Pa And Lat (2 Views) dated 02/05/2019 FINDINGS: Portable technique limits examination quality. Prominent emphysematous changes are present. There is patchy opacity in the left lower lung suspicious for infiltrate/pneumonia. The heart is normal in size. Right-sided venous catheter tip in the SVC. EXAM DESCRIPTION: RAD - Chest Single View - 07/05/2020 2:32 pm CLINICAL HISTORY: intubation and gastric tube placement Chest pain. COMPARISON: Chest Single View dated 07/05/2020; Chest Single View dated 07/02/2020; Chest Single View dated 06/29/2020; Chest Single View dated 03/18/2020 FINDINGS: Portable technique limits examination quality. Enteric tube is present coiled in the stomach. Endotracheal tube tip is somewhat difficult to discern but may be about 1 cm above the level of the aortic arch. Right-sided venous catheter has tip in the SVC. Conclusions/Impression: A/P: Continue the current POC and Medications other than the changes listed. AM Labs PRN. Recommend daily weight. Please see the orders for complete details. ESRD -HD TIW Hyponatremia -HD TIW Acidosis -HD TIW HTN with CKD/ CHF complicated by hypotension/ shock -Pressor therapy as ordered Diastolic CHF, A/C -Low sodium diet Moderate malnutrition -Recommend tube feeding Anemia in CKD -Continue Retacrit MITCHELL/ Secondary HyperPTH Hypocalcemia HyperPO4 -Continue Vitamin D3 BPH with LUTS -Continue Flomax COVID-19 PNA with acute hypoxic respiratory failure sp intubation -Continue Oxygen support -Continue steroids -Continue remdesevir -Ventilatory support as ordered Case reviewed at the bedside including end of life care with Dr. Silva and the family.
[2020-07-05] MEDS ORDERED: NA CHLORIDE 0.9% 500 ML ONE (23:05)
--- NOTE | 2020-07-06 00:27 | P.DS ---
Admission Date: 06/29/20 Discharge Date: 07/06/20 Discharge Condition: Reason for Admission: Respiratory failure from arnold virus Consultations: Nephrology:Dr. Bear Pulmonology/sales service technician:Dr. Marte Procedures: Initial chest x-ray EXAM DESCRIPTION: RAD - Chest Single View - 06/29/2020 1:12 pm CLINICAL HISTORY: Cough;Dyspnea Chest pain. COMPARISON: Chest Single View dated 03/18/2020; Chest Single View dated 03/17/2020; Chest Pa And Lat (2 Views) dated 03/08/2019; Chest Pa And Lat (2 Views) dated 02/05/2019 FINDINGS: Portable technique limits examination quality. Prominent emphysematous changes are present. There is patchy opacity in the left lower lung suspicious for infiltrate/pneumonia. The heart is normal in size. Right-sided venous catheter tip in the SVC. Dictated By: Kamari White MD 06/29/20 1330 Signed By: Kamari White MD 06/29/20 1330 Most recent chest x-ray EXAM DESCRIPTION: RAD - Chest Single View - 07/05/2020 2:32 pm CLINICAL HISTORY: intubation and gastric tube placement Chest pain. COMPARISON: Chest Single View dated 07/05/2020; Chest Single View dated 07/02/2020; Chest Single View dated 06/29/2020; Chest Single View dated 03/18/2020 FINDINGS: Portable technique limits examination quality. Enteric tube is present coiled in the stomach. Endotracheal tube tip is somewhat difficult to discern but may be about 1 cm above the level of the aortic arch. Right-sided venous catheter has tip in the SVC. Dictated By: Kamari White MD 07/05/20 1440 Signed By: Kamari White MD 07/05/20 1441 Medical problem list acute hypoxemic respiratory failure secondary to COVID-19 pneumonia acute on chronic COPD exacerbation ESRD on hemodialysis Thrombocytopenia acute delirium Brief History of Present Illness: 70-year-old gentleman with a history of COPD, end-stage renal disease on hemodialysis, hypertension presented to the emergency department with a complaint of shortness of breath of about 5 days duration. Patient also reports cough productive of clear sputum. He denied any chest pain. He denied any fever. Patient tested positive for COVID 19 in the ED today. Chest x-ray reported mild patchy opacity in the left lower lobe suspected to be an infiltrate. His oxygen saturation was 82% on room air in the ED. Patient placed on 3 L oxygen by nasal cannula. He continues to smoke about a pack of cigarettes per day. Patient is admitted for further management. Hospital Course: Patient was admitted for acute hypoxic respiratory failure secondary to COVID-19 pneumonia, patient also history of ESRD on HD and COPD. Patient initially presented with thrombocytopenia, leukopenia and was having oxygen requirement of around 3-4 L per nasal cannula. Throughout patient's hospitalization his oxygen requirement increased significantly over time until patient was on BiPAP with FiO2 of 100%. Patient remained on BiPAP over the course of the last few days while clinically worsening. Last night patient had a few episodes of hypotension that was resolved with small boluses of normal saline, throughout the day today patient became hypotensive and tachycardic, ABG also demonstrated significant hypoxemia. Decision was made for intubation due to refractory hypoxemia, hypotension, tachycardia. Patient also had synchronized cardioversion today for atrial tachycardia. Patient then required vasopressor therapy and was quickly increased to max out on 2 vasopressors. Today case was discussed at length by hospitalist attending with family who elected for DNR status by continuation of otherwise aggressive medical therapy. Throughout the evening patient required more more vasopressor support, eventually requiring a 3rd vasopressor. Despite this maximal effort patient became significantly tachycardic and hypotensive events a leading to asystole shortly before midnight. Patient peacefully shortly before midnight on 07/05/2020. May he rest in peace. Vital Signs/Physical Exam: Temp Pulse Resp BP Pulse Ox 96.6 F L 115 H 24 H 76/60 L 96 07/05/20 20:00 07/05/20 20:30 07/05/20 20:30 07/05/20 20:30 07/05/20 19:54 General: Unresponsive HEENT: Other (Pupils fixed, dilated) Neck: Other (No palpable carotid pulse) Respiratory: Other (No spontaneous respiratory effort) Cardiovascular: Other (No heart sounds noted) Neurological: Other (Unresponsive) Laboratory Data at Discharge: WBC 7.60 K/uL (4.3-10.9) D 07/04/20 04:49 Hgb 13.2 g/dL (13.6-17.9) L 07/04/20 04:49 Hct 40.1 % (39.6-49.0) 07/04/20 04:49 Plt Count 108 K/uL (152-406) L D 07/04/20 04:49 Sodium 144 mmol/L (136-145) 07/05/20 04:42 Potassium 4.7 mmol/L (3.5-5.1) 07/05/20 04:42 BUN 47 mg/dL (7-18) H D 07/05/20 04:42 Creatinine 3.49 mg/dL (0.55-1.3) H 07/05/20 04:42 Glucose 86 mg/dL (74-106) 07/05/20 04:42 Phosphorus 3.9 mg/dL (2.5-4.9) 07/05/20 04:42 Magnesium 2.1 mg/dL (1.8-2.4) 06/30/20 05:15 Total Bilirubin 0.5 mg/dL (0.2-1.0) 07/04/20 04:49 AST 41 U/L (15-37) H 07/04/20 04:49 ALT 41 U/L (12-78) 07/04/20 04:49 Alkaline Phosphatase 67 U/L (45-117) 07/04/20 04:49 Triglycerides 119 mg/dL (<150) 06/30/20 05:15 Cholesterol 98 mg/dL (<200) 06/30/20 05:15 HDL Cholesterol 37 mg/dL (40-60) L 06/30/20 05:15 Cholesterol/HDL Ratio 2.65 06/30/20 05:15 Home Medications: Tamsulosin [Flomax*] 0.4 mg PO BEDTIME 03/08/19 Albuterol Sulfate [Albuterol Sulfate Hfa] 8.5 gm IH PRN 03/17/20 Umeclidinium Brm/Vilanterol Tr [Anoro Ellipta 62.5-25 Mcg INH] 1 each IH DAILY 03/17/20 Calcium Acetate [Phoslo*] 667 mg PO TIDWM #90 cap 03/23/20 Cholecalciferol (Vitamin D3) [Vitamin D 5,000 IU Cap*] 5,000 unit PO DAILY #30 cap 03/23/20 Calcitrol [Rocaltrol*] 4 tab PO DAILY 07/02/20 Physician Discharge Instructions: Rest in peace Followup: NONE,NONE [Primary Care Provider] - Time spent managing pt's care (in minutes): 35
[2020-07-06 03:35] VITALS: BP 43/35
[2020-07-06 04:04] VITALS: TEMP 97.9
[2020-07-06 04:26] VITALS: O2SAT 60
[2020-07-06] MEDS ORDERED: ASPIRIN EC 81 MG TAB PO SCH (09:00)
[2020-07-07 05:09] LABS: HBsAG Nonreactive (Nonreactive)
== END 2020-07-05 23:38 | disposition expired | DRG 208 ==
LOC: ER 11:57 → ERHOLD 14:37 → 4TH 06-30 13:45 → 3RD-ICU 07-03 19:26
PROVIDERS: ADMIT Internal Medicine; ATTEND Hospitalist
PROC: 5A1D70Z Performance of Urinary Filtration, Intermittent, Less than 6 Hours Per Day (ICD-10-PCS; 2020-06-28)
PROC: 5A1935Z Respiratory Ventilation, Less than 24 Consecutive Hours (ICD-10-PCS; principal; 2020-06-29)
PROC: 0BH17EZ Insertion of Endotracheal Airway into Trachea, Via Natural or Artificial Opening (ICD-10-PCS; 2020-06-29)
PROC: 5A09457 Assistance with Respiratory Ventilation, 24-96 Consecutive Hours, Continuous Positive Airway Pressure (ICD-10-PCS; 2020-06-29)
PROC: XW033E5 Introduction of Remdesivir Anti-infective into Peripheral Vein, Percutaneous Approach, New Technology Group 5 (ICD-10-PCS; 2020-06-30)
DX: U07.1 COVID-19 (principal); J96.01 Acute respiratory failure with hypoxia; J12.82 Pneumonia due to coronavirus disease 2019; N18.6 End stage renal disease; I50.33 Acute on chronic diastolic (congestive) heart failure; E44.0 Moderate protein-calorie malnutrition; Z68.1 Body mass index [BMI] 19.9 or less, adult; J44.0 Chronic obstructive pulmonary disease with (acute) lower respiratory infection; J44.1 Chronic obstructive pulmonary disease with (acute) exacerbation; E87.1 Hypo-osmolality and hyponatremia; E87.2 Acidosis; I13.2 Hypertensive heart and chronic kidney disease with heart failure and with stage 5 chronic kidney disease, or end stage renal disease; D61.818 Other pancytopenia; F05 Delirium due to known physiological condition; I47.1 Supraventricular tachycardia; N25.0 Renal osteodystrophy; F17.210 Nicotine dependence, cigarettes, uncomplicated; E21.1 Secondary hyperparathyroidism, not elsewhere classified; D63.1 Anemia in chronic kidney disease; N40.1 Benign prostatic hyperplasia with lower urinary tract symptoms; F29 Unspecified psychosis not due to a substance or known physiological condition; F03.90 Unspecified dementia, unspecified severity, without behavioral disturbance, psychotic disturbance, mood disturbance, and anxiety; R57.8 Other shock; Z88.1 Allergy status to other antibiotic agents; Z99.2 Dependence on renal dialysis; Z88.5 Allergy status to narcotic agent; Z79.899 Other long term (current) drug therapy; Z78.1 Physical restraint status
CPT/HCPCS: 36415; 71045; 80048; 80061; 80069; 80076; 81003; 81015; 82550; 82728; 82805; 82947; 83605; 83735; 83880; 84100; 84145; 84484; 85025; 86140; 86317; 87040; 87340; 90935; 93005; 94002; 94003; 94640; 94660; 94760; 96361; 96374; 96375; 99285; J0282; J0330; J0456; J0696; J0885; J1265; J1630; J1644; J2270; J2370; J2704; J2920; J2930; J3486; J7030; J7050; J7060; J7605; J7606; J7799; P9047; Q5105; U0003